=== PATIENT | male | born 1945 | race Caucasian/White ===

== ENCOUNTER 2018-02-05 13:28 | Inpatient (IN) | payer MEDICARE ==
[2018-02-05 14:43] VITALS: BP 118/69
[2018-02-05] MEDS ORDERED: Magnesium Hydroxide (MOM) 30 mL UDC PO PRN (17:07)
[2018-02-05] MEDS ORDERED: Maalox 30 mL Cup PO PRN (17:07)
[2018-02-06] MEDS: Levothyroxine 0.1 Mg Tab PO SCH ×2 (07:19→07:33)
[2018-02-06 07:58] LABS: CHOLESTEROL 147 mg/dL (<200); HDL -HIGH DENSITY LIPOPROTEIN 43 mg/dL (23-92); TRIGLYCERIDES 107 mg/dL (<150)
[2018-02-06] MEDS: INSULIN ASPART SLIDING SCALE 100 UNITS/ML UNIT SUBQ SCH ×4 (07:59→20:38)
[2018-02-06] MEDS: Ferrous Sulfate 325 MG TAB PO SCH ×2 (08:52→17:36)
[2018-02-06] MEDS: Multivitamin Tab PO SCH (08:53)
[2018-02-06] MEDS: Pantoprazole 40 mg EC Tab PO SCH (08:53)
[2018-02-06] MEDS ORDERED: Enoxaparin 40 mg/0.4 mL 0.4mL Syr SUBQ SCH (09:00)
--- NOTE | 2018-02-06 11:36 | History & Physical ---
ADMIT DATE: 02/06/2018 IDENTIFICATION: A 72-year-old male. REQUESTING PHYSICIAN: Dr. Mary. PRESENTING COMPLAINT: "I don't know why I am here." HISTORY OF PRESENT ILLNESS: A 52-year-old male transferred from acute care facility to [place] transferred from [facility] to [facility] for further psychiatric care. PAST MEDICAL HISTORY: Remarkable for: 1. Diabetes. 2. BPH. 3. Hypertension. 4. DJD. 5. Hypothyroidism. 6. Psychotic disorder. 7. Dementia. 8. History of anemia. MEDICATIONS: At the time of transfer, Tylenol, Maalox, Abilify, Lipitor, atropine eyedrops, Coreg, Lovenox, ferrous sulfate, sliding scale insulin, Synthroid, Zestril, lorazepam, milk of magnesia, Glucophage, multivitamin, Protonix, Risperdal, Ambien. ALLERGIES: THE PATIENT IS ALLERGIC TO PAXIL. SOCIAL HISTORY: The patient lives in [facility] with his . The patient has no history of smoking cigarette, alcohol, or drug use. He used to work as a air condition conduit installer. FAMILY MEDICAL HISTORY: He was adopted, so there is no history available. REVIEW OF SYSTEMS: The patient currently denies any headache, blurred vision, double vision, dysphagia, odynophagia, runny nose, stuffy nose, fever, chills, cough, chest pain, shortness of breath, palpitation, dizziness, nausea, vomiting, diarrhea, dysuria, hematuria, hematochezia, or melena. No history of any seizure or syncopal episode. PHYSICAL EXAMINATION: GENERAL: Alert, awake, oriented, lying in the bed without any acute distress. VITAL SIGNS: Temperature 98, pulse is 74, respiratory rate is 18, blood pressure 134/80. HEENT: Normocephalic, atraumatic. Extraocular muscles are intact. Legally blindness on the right eye noted. Tongue was pink and coated. Poor dentition noted. No oral lesion, no exudate. No sinus tenderness. External auditory canal and tympanic membranes are well visualized. NECK: Supple. No JVD. No hepatojugular reflex. No lymphadenopathy, thyromegaly, or carotid bruit. HEART: Both heart sounds are regular. No S3, no S4, no murmur. CHEST AND LUNGS: Equal in expansion, no expiratory wheezing. ABDOMEN: Soft. No guarding. No rigidity. Liver and spleen palpable. No palpable mass. EXTREMITIES: No edema, no cyanosis or clubbing. Peripheral pulses are +2. No calf tenderness noted. NEUROLOGIC: Alert, awake, oriented, 2-12 cranial nerves are intact. Power in upper or lower extremities are 5+. Sensation to touch intact. Babinskis in both toes are going down. No cerebral sign. AVAILABLE DIAGNOSTIC DATA: [facility] has been reviewed. CLINICAL IMPRESSION: 1. Diabetes. 2. Hypertension. 3. Hypothyroidism. 4. Degenerative joint disease. 5. Hyperlipidemia. 6. Psychotic disorder. 7. 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 8. History of prior transurethral resection of prostate and benign prostatic hypertrophy. 9. Decline in self-care, mobility. PLAN: In the view of ambulatory status, discontinue Lovenox for now. Resume medications for diabetes, hypertension, hyperlipidemia, hypothyroidism, and provided general nursing care. Medication lists will be reconciled appropriately. Psychotic evaluation and management deferred to psychiatrist. The patient is medically stable to participate in the activity followed by the [facility]. The patient has been advised to see his primary care physician upon discharge for followup. [facility]# [id number]
--- NOTE | 2018-02-06 12:15 | Psychiatric Evaluation ---
DATE OF SERVICE: 02/05/2018 IDENTIFYING INFORMATION: The patient is a 72-year-old male. CHIEF COMPLAINT: "I don't know." HISTORY OF PRESENT ILLNESS: The patient was admitted on a hold for danger to self. The patient was dropped off by spouse for possible placement; however, at this time in hospital, the patient exhibited cutting behavior. He voiced intent to end his life. The patient apparently was recently discharged home and returned to the hospital the same day attempted to end his life by hanging with cords in the room and cutting himself with the glass from glasses. The patient was seen by a psychiatrist. Apparently on 02/04/2018, he recommended treatment due to manic symptoms and for definitive treatment of psychotic depression. The patient was a poor historian actually, he is not sure how long he has been actually though his brought him here he said he has not seen his in a long time. The patient denies that he agreed that he tried to cut himself for attention, but he denies that he was trying to hang himself. He reports his sleep well. Reports poor appetite. He knows this is 2017. He knows he is at [facility]. He is not sure why he is here. Has no clue about what he did. PAST PSYCHIATRIC HISTORY: Depression. The patient, however, denies that he has seen a psychiatrist before. Admits that he used to drink in the past, but not recently. He believes this is his first hospitalization here. Obviously, he has problem with his memory. MEDICATIONS: The patient is already on Abilify 15 mg daily and Risperdal 1 mg daily and 2 mg at bedtime. The patient was denying any prior suicide attempt, but obviously he is a poor historian. He reports sleep well, does not eat very well. MEDICAL HISTORY: THE PATIENT IS ALLERGIC TO PAXIL. He has hyperlipidemia. He has ophthalmic eye drops, atropine. He is on Coreg for blood pressure, Lovenox, iron for anemia. He is diabetic and on insulin. He has hypothyroidism, on levothyroxine and lisinopril for high blood pressure and metformin for diabetes 850 mg, and pantoprazole for GERD. FAMILY AND SOCIAL HISTORY: The patient reported that he is . He is not sure how long. He reports he has not seen his for a long time, though his was the one who brought him here. He apparently is supposed to be placed in a [facility]. He has 4 children, but he does not know where they are. He reports he was adopted, so has no idea about family history. 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 He has one semester [employer]. MENTAL STATUS EXAMINATION: The patient is appropriately dressed, not well groomed. He looked disheveled, internally preoccupied. Unable to participate in meaningful conversation or make safe plan for self-care. He does not know why he is here. He was able to tell me his age and date of . He is not sure of the current date. He knows this is 2017. He knew he was in [facility], but he is not sure why he is here. He denies any auditory or visual hallucination. His long terms were age, date of . Recent memory is poor, cannot remember events led to him coming here, what he ate for breakfast. Immediate memory is poor, cannot concentrate enough to give me information. He has some ____. His insight about his illness is poor ____ problem. Judgment is poor with his behavior, trying to harm himself. IMPRESSION: AXIS I: Major depression, recurrent with psychosis. MEDICAL DIAGNOSIS: Deferred to the medical doctor. ASSET: Accepting treatment. Negative for coping skills. INITIAL TREATMENT PLAN: The patient will be started on antidepressant. We will do group therapy, milieu therapy, and individual therapy. ESTIMATED LENGTH OF STAY: 3-7 days. DISCHARGE CRITERIA: Decrease in depression, no longer suicidal after discharge, outpatient treatment. We may also have to give him medications for memory. I am not sure if he is psychotic or he has memory problems to start with. JOB# [id number]
[2018-02-07] MEDS: Levothyroxine 0.1 Mg Tab PO SCH (07:01)
[2018-02-07] MEDS: INSULIN ASPART SLIDING SCALE 100 UNITS/ML UNIT SUBQ SCH ×4 (07:01→21:15)
[2018-02-07 07:03] LABS: URINE SOURCE FOLEY PORT
[2018-02-07 07:15] LABS: URINE CLARITY CLOUDY (CLEAR); URINE COLOR YELLOW; URINE MICROSCOPIC INDICATED? YES
[2018-02-07 07:16] LABS: URINE BILIRUBIN NEGATIVE (NEGATIVE); URINE BLOOD SMALL (NEGATIVE); URINE GLUCOSE (UA) NEGATIVE (NEGATIVE); URINE KETONE TRACE mg/dL (NEGATIVE)
[2018-02-07 07:17] LABS: URINE LEUKOCYTE ESTERASE LARGE (NEGATIVE); URINE NITRATE POSITIVE (NEGATIVE); URINE PROTEIN 30 mg/dL (NEGATIVE); URINE UROBILINOGEN 0.2 E.U./dL (0.2 - 1.0)
[2018-02-07 07:20] LABS: URINE BACTERIA 1+ /hpf (NONE SEEN); URINE EPITHELIAL CELLS OCCASIONAL /lpf (FEW)
[2018-02-07] MEDS: Multivitamin Tab PO SCH (08:51)
[2018-02-07] MEDS: Pantoprazole 40 mg EC Tab PO SCH (08:52)
[2018-02-07] MEDS: Ferrous Sulfate 325 MG TAB PO SCH ×2 (08:52→16:16)
--- NOTE | 2018-02-07 17:26 | Progress Notes ---
DATE: 02/07/2018 SUBJECTIVE: The patient was seen and evaluated. The patient's chart reviewed. Nursing staff overnight report that the patient continues to report feeling sad and suicidal, had refused medications earlier today. Today on [id number] evaluation, the patient presents withdrawn, disengaged, very irritable in the conversation, and denying everything and refusing everything to why he has been hospitalized, and does not give much of information besides " I am not going to be seen by a psychiatrist." MENTAL STATUS EXAMINATION: Disengaged, withdrawn, irritable, agitated, refusing to be interviewed by Psychiatry. ASSESSMENT AND PLAN: The patient is a 72-year-old male, who was initially brought in here by his spouse who dropped him off. He had been exhibiting some cutting behavior and voiced intent to end his life, and apparently was discharged from the hospital, and he attempted to end his life by hanging with curtain in his room and cutting himself with . CURRENT MEDICATIONS: The patient is on acetaminophen, Abilify 15 mg, Coreg, Cipro, ferrous sulfate, levothyroxine, lisinopril, Ativan as needed, mirtazapine at 15 mg a day, metformin, and risperidone 1 mg p.o. q.a.m. and also 2 mg at nighttime. Today, the patient has still very guarded behavior, serious suicide attempts, and unclear of the patient's history. Further collateral and baseline information is needed. Unclear why the patient has 2 different antipsychotics. Therefore, at this point, we will continue monitoring and evaluating for any side effects as he has not experienced anything and continue with primary psychiatrist's treatment plan and goal. [facility]# [id number]
--- NOTE | 2018-02-08 00:09 | Progress Notes ---
DATE: 02/07/2018 IDENTIFICATION: A 72-year-old male. The patient seen and examined. The patient is lying in the bed. The patient has no new complaint. PHYSICAL EXAMINATION: VITAL SIGNS: Temperature 98.7, pulse is 100, respiratory rate 18, blood pressure 100/50. HEENT: No facial asymmetry, legally blindness in the right eye noted. Tongue was pink and coated. NECK: Supple, no JVD. HEART: Regular. CHEST AND LUNGS: Equal in expansion, no expiratory wheezing. ABDOMEN: Soft, no guarding or rigidity. Bowel sounds present. No palpable mass. EXTREMITIES: No edema. LABORATORY DATA: Glucoscan is reviewed. Cholesterol panels are acceptable range. Urinalysis remarkable for small amount of blood, nitrite positive, large leukocyte esterase, 10-25 WBC, +1 bacteria noted. CLINICAL IMPRESSION: 1. Urinary tract infection. 2. Diabetes mellitus. 3. Benign prostatic hypertrophy. 4. Hypertension. 5. Hypothyroidism. 6. Degenerative joint disease. 7. Psychotic disorder. 8. Decline in self-care and mobility. PLAN: 1. Start the patient on p.o. ciprofloxacin for urinary tract infection. 2. Monitor blood sugar and blood pressure. 3. Antihypertensive medicine. 4. Synthroid. 5. Statin. 6. Psych medication. 7. Psych followup. 8. General nursing care. 9. Follow lab. 10. We will continue to follow this patient during the stay in the hospital. JOB# [id number]
[2018-02-08] MEDS: Levothyroxine 0.1 Mg Tab PO SCH (06:36)
[2018-02-08] MEDS: INSULIN ASPART SLIDING SCALE 100 UNITS/ML UNIT SUBQ SCH ×4 (06:37→20:50)
[2018-02-08] MEDS: Ferrous Sulfate 325 MG TAB PO SCH ×3 (08:51→16:58)
[2018-02-08] MEDS: Pantoprazole 40 mg EC Tab PO SCH ×2 (08:51→09:07)
[2018-02-08] MEDS: Multivitamin Tab PO SCH ×2 (08:51→09:07)
--- NOTE | 2018-02-08 19:27 | Progress Notes ---
DATE: 02/08/2018 SUBJECTIVE: Today on [id number] evaluation, the patient continues to be distraught, overwhelmed, refusing to answer questions, especially associated with her recent acute hospitalization. MENTAL STATUS EXAMINATION: Distraught and disengaged. ASSESSMENT AND PLAN: Failed ____ post severe suicide attempt, unable to formulate a safe plan. We will continue current medical treatment plan and goals with the patient ongoing severe SI, unable to formulate a safe plan. [facility]# [id number]
--- NOTE | 2018-02-08 22:08 | Progress Notes ---
DATE: 02/08/2018 DATE OF EVALUATION: 02/08/2018 SUBJECTIVE: The patient seen and examined. The patient is lying in the bed. No new event. OBJECTIVE: VITAL SIGNS: Temperature 98.4, pulse 100, respiratory rate is 20, blood pressure 142/79. HEENT: No facial asymmetry, legally blindness in the right eye noted. NECK: Supple, no JVD. HEART: Regular. CHEST AND LUNGS: Equal in expansion, no expiratory wheezing. ABDOMEN: Soft. EXTREMITIES: No edema. LABORATORY DATA: MRSA nares came out positive. Stool studies are negative for any Gram-negative organism. Urine culture preliminary is positive for Gram-negative rods, currently on Cipro. IMPRESSION: 1. Diabetes mellitus. 2. Complicated urinary tract infection. 3. Benign prostatic hypertrophy. 4. Psychotic disorder. 5. Hypertension. 6. Hyperlipidemia. 7. Degenerative joint disease. 8. Decline in self-care and mobility. PLAN: 1. Continue Cipro. 2. Monitor blood sugar. 3. Diabetes management. 4. Antihypertensive medicine. 5. Synthroid. 6. Psych followup and psych medication. 7. General nursing care. 8. Care plan reviewed. JOB# [id number]
[2018-02-09] MEDS: Levothyroxine 0.1 Mg Tab PO SCH (06:38)
[2018-02-09] MEDS: INSULIN ASPART SLIDING SCALE 100 UNITS/ML UNIT SUBQ SCH ×4 (06:41→20:39)
[2018-02-09] MEDS: Multivitamin Tab PO SCH (08:40)
[2018-02-09] MEDS: Pantoprazole 40 mg EC Tab PO SCH (08:40)
[2018-02-09] MEDS: Ferrous Sulfate 325 MG TAB PO SCH ×3 (08:40→16:48)
[2018-02-09] MEDS ORDERED: Probiotic Screen MC PRN (12:26)
[2018-02-09] MEDS: Lactobacillus Rhamnosus GG 15 Billion CFU CAP.SPRINK PO SCH (14:09)
--- NOTE | 2018-02-09 22:23 | Progress Notes ---
DATE: 02/09/2018 SUBJECTIVE: Case was discussed with staff of the patient, reviewed records and staff report that patient refused medication in the morning, but take it at night. The patient continues to be confused, unable to participate in meaningful conversation or make safe plan for self-care. Continues to be unpredictable and impulsive, high risk for suicide ____ suicide attempt. The patient is unable to express himself very well. He has some ____ hard to express himself. I will be increasing Risperdal. I tried to give him all his medication possibly at bedtime. So Risperdal will be increased to 3 mg at bedtime and so far no side effects, no sedation, no nausea, no extrapyramidal symptoms. We will continue outpatient group therapy, milieu therapy, and adjust medication as needed. JOB# [id number]
[2018-02-10] MEDS: Levothyroxine 0.1 Mg Tab PO SCH (06:33)
[2018-02-10] MEDS: INSULIN ASPART SLIDING SCALE 100 UNITS/ML UNIT SUBQ SCH ×4 (06:34→21:45)
[2018-02-10] MEDS: Ferrous Sulfate 325 MG TAB PO SCH ×2 (08:46→16:59)
[2018-02-10] MEDS: Lactobacillus Rhamnosus GG 15 Billion CFU CAP.SPRINK PO SCH (08:46)
[2018-02-10] MEDS: Pantoprazole 40 mg EC Tab PO SCH (08:46)
[2018-02-10] MEDS: Multivitamin Tab PO SCH (08:46)
--- NOTE | 2018-02-10 10:05 | Progress Notes ---
DATE: 02/10/2018 SUBJECTIVE: The patient seen and examined. The patient is lying in the bed. No new event. Urine culture did grow Klebsiella pneumoniae ESBL with the Staphylococcus aureus MRSA screening came out positive. The patient is currently on ciprofloxacin when Klebsiella is sensitive to it. OBJECTIVE: On today's exam, VITAL SIGNS: Temperature 98, pulse is 100, respiratory rate 18, blood pressure 120/74. HEENT: No facial asymmetry, legally blindness noted on the left eye. Tongue more pink and coated. NECK: Supple. HEART: Regular. LUNGS: Clear. ABDOMEN: Soft. EXTREMITIES: No edema. CLINICAL IMPRESSION: 1. Klebsiella pneumoniae extended-spectrum beta-lactamases urinary tract infection, currently on p.o. Cipro. 2. Methicillin-resistant Staphylococcus aureus nares positive. 3. Diabetes. 4. Benign prostatic hypertrophy. 5. Hypertension. 6. Degenerative joint disease. 7. Hypothyroidism. PLAN: 1. P.o. Cipro. 2. Bactroban. 3. Monitor blood sugar. 4. Antihypertensive medicine. 5. Synthroid. 6. General nursing care. 7. We will continue to follow this patient during the stay in the hospital. JOB# [id number]
--- NOTE | 2018-02-10 17:21 | Progress Notes ---
DATE: 02/10/2018 Case was discussed with staff of the patient. The patient continues to be paranoid, suspicious, internally preoccupied, confused, unable to participate in meaningful conversation or make safe plan for self-care. Continues to have poor insight. Looking disheveled, disorganized. He is compliant with the medication with no side effects, no sedation, no nausea, no extrapyramidal symptoms. I changed the medication to only bedtime because he is refusing the morning. Medication and we will continue the patient in group therapy, milieu therapy, adjust medication as needed. JOB# [id number]
[2018-02-11] MEDS: Levothyroxine 0.1 Mg Tab PO SCH (06:33)
[2018-02-11] MEDS: INSULIN ASPART SLIDING SCALE 100 UNITS/ML UNIT SUBQ SCH ×4 (06:34→21:30)
[2018-02-11] MEDS: Lactobacillus Rhamnosus GG 15 Billion CFU CAP.SPRINK PO SCH (08:50)
[2018-02-11] MEDS: Ferrous Sulfate 325 MG TAB PO SCH ×2 (08:50→16:25)
[2018-02-11] MEDS: Pantoprazole 40 mg EC Tab PO SCH (08:52)
[2018-02-11] MEDS: Multivitamin Tab PO SCH (08:52)
--- NOTE | 2018-02-11 14:24 | Operative Report ---
DATE OF SURGERY: 02/11/2018 SUBJECTIVE: Case was discussed with staff of the patient, reviewed records. The patient continues to be confused, continues to be unpredictable, impulsive, needing redirection. Continues to have poor insight. Unable to participate in meaningful conversation or make safe plan for self-care. He is compliant with the medication with no side effects, no sedation, no nausea, and no extrapyramidal symptoms. We will continue the patient in group therapy, milieu therapy, and adjust medications as needed. JOB# [id number]
[2018-02-12] MEDS: Levothyroxine 0.1 Mg Tab PO SCH (06:42)
[2018-02-12] MEDS: INSULIN ASPART SLIDING SCALE 100 UNITS/ML UNIT SUBQ SCH ×4 (06:58→20:55)
[2018-02-12] MEDS: Ferrous Sulfate 325 MG TAB PO SCH ×2 (08:36→17:29)
[2018-02-12] MEDS: Multivitamin Tab PO SCH (08:36)
[2018-02-12] MEDS: Lactobacillus Rhamnosus GG 15 Billion CFU CAP.SPRINK PO SCH (08:36)
[2018-02-12] MEDS: Pantoprazole 40 mg EC Tab PO SCH (08:36)
--- NOTE | 2018-02-12 15:35 | Progress Notes ---
DATE: 02/12/2018 THE PATIENT'S ID: A 72-year-old male. SUBJECTIVE: The patient is seen and examined. No new event. Glucoscan reviewed. PHYSICAL EXAMINATION: VITAL SIGNS: Temperature 98.1, pulse 100, respiratory rate is 18, blood pressure 92/58. HEENT: No facial asymmetry, legally blindness from the right eye noted. NECK: Supple, no JVD. HEART: Regular. CHEST AND LUNGS: Equal in expansion, no expiratory wheezing. ABDOMEN: Soft, no guarding or rigidity. Bowel sounds present. No palpable mass. EXTREMITIES: No edema. CLINICAL IMPRESSION: 1. Klebsiella pneumonia complicated urinary tract infection. 2. Benign prostatic hypertrophy. 3. Hypertension. 4. Hypothyroidism. 5. Degenerative joint disease. 6. Diabetes. 7. Psychotic disorder. PLAN: 1. p.o. Cipro. 2. Bactroban. 3. Monitor blood sugar and blood pressure. 4. Avoid bladder outlet obstruction. 5. Continue BPH medication. 6. Low sodium diet. 7. Synthroid. 8. General nursing care. 9. Care plan reviewed. JOB# [id number]
--- NOTE | 2018-02-12 16:51 | Progress Notes ---
DATE: 02/12/2018 Case was discussed with staff of the patient, reviewed records. The patient continues to be confused, continues to have poor insight. Continues to unable to make safe plan for self-care. Looking disheveled, disorganized, internally preoccupied. Continues to need redirection. No side effects of the medication, no sedation, no nausea, no extrapyramidal symptoms and sleeping better, eating better. He is also diabetic and on medication for diabetes with high blood sugar with the last one was this morning at 142, yesterday it was 169 and we will continue the patient in group therapy, milieu therapy, and adjust the medication as needed. JOB# [id number]
[2018-02-13] MEDS: Levothyroxine 0.1 Mg Tab PO SCH (06:44)
[2018-02-13] MEDS: INSULIN ASPART SLIDING SCALE 100 UNITS/ML UNIT SUBQ SCH ×4 (06:46→20:38)
[2018-02-13] MEDS: Lactobacillus Rhamnosus GG 15 Billion CFU CAP.SPRINK PO SCH (08:31)
[2018-02-13] MEDS: Pantoprazole 40 mg EC Tab PO SCH (08:31)
[2018-02-13] MEDS: Multivitamin Tab PO SCH (08:31)
[2018-02-13] MEDS: Ferrous Sulfate 325 MG TAB PO SCH ×2 (08:32→17:11)
--- NOTE | 2018-02-13 21:12 | Progress Notes ---
DATE: 02/13/2018 Case was discussed with staff of the patient, reviewed records. The patient continues to be confused. He was able to tell me this is Friday; however, unable to tell me the exact date, place, month, what year. Continues to be internally preoccupied. Continues to be unable to make safe plan for self-care. However, he is making progress in that he is able to carry on a conversation though he is still very confused. I am not sure of psychosis or he is demented. Because of his psychosis, it is hard to test his memory and make sure that this is dementia. He is sleeping better, eating better. No side effects with the medication, no sedation, no nausea and no extrapyramidal symptoms. I will continue with outpatient group therapy, milieu therapy, and adjust medications as needed. JOB# [id number]
[2018-02-14] MEDS: Levothyroxine 0.1 Mg Tab PO SCH (06:30)
[2018-02-14] MEDS: INSULIN ASPART SLIDING SCALE 100 UNITS/ML UNIT SUBQ SCH ×2 (06:31→12:07)
[2018-02-14] MEDS: Multivitamin Tab PO SCH (08:57)
[2018-02-14] MEDS: Lactobacillus Rhamnosus GG 15 Billion CFU CAP.SPRINK PO SCH (08:57)
[2018-02-14] MEDS: Ferrous Sulfate 325 MG TAB PO SCH (08:57)
[2018-02-14] MEDS: Pantoprazole 40 mg EC Tab PO SCH (08:57)
[2018-02-14 12:40] LABS: EOSINOPHILE ABSOLUTE 0.1 Th/cmm (0.1-0.4); HEMATOCRIT 30.4 % (41.0-60); LYMPHOCYTE ABSOLUTE 0.6 Th/cmm (1.5-3.0); MEAN CELL VOLUME 78.5 fl (80-99); MEAN CORPUSCULAR HEMOGLOBIN 25.7 pg (27.0-31.0); MEAN CORPUSCULAR HGB CONC 32.7 pg (28.0-36.0); MEAN PLATELET VOLUME 8.2 fl; MONOCYTE ABSOLUTE 0.4 Th/cmm (0.3-1.0); NEUTROPHILE ABSOLUTE 9.7 Th/cmm (1.8-8.0); PLATELET COUNT 287 Th/cmm (150-400); RED BLOOD COUNT 3.87 Mil/cmm (3.80-5.80); RED CELL DISTRIBUTION WIDTH 19.4 % (11.5-20.0); WHITE BLOOD COUNT 10.8 Th/cmm (4.8-10.8)
[2018-02-14 12:55] LABS: ALB/GLOB RATIO 1.3 (1.0-1.8); ALBUMIN 3.4 gm/dL (4.2-5.5); ALKALINE PHOSPHATASE 56 U/L (34-104); ANION GAP 43.5 (7.0-16.0); BILIRUBIN,TOTAL 0.3 mg/dL (0.3-1.0); CALCIUM SERUM 9.2 mg/dL (8.6-10.3); CHLORIDE 92 mEq/L (98-107); GLUCOSE 181 mg/dL (70-105); SGOT 19 U/L (13-39); SGPT/ALT 19 U/L (7-52); SODIUM SERUM 134 mEq/L (136-145)
[2018-02-14 13:09] LABS: BAND NEUTROPHILE 1 % (0-10); LYMPHOCYTE 11 % (20-50); MONOCYTE 1 % (2-10); NEUTROPHILS 87 % (40-80)
[2018-02-14 13:10] LABS: ANISOCYTOSIS 1+; PLATELET ESTIMATE ADEQUATE (NORMAL); POIKILOCYTOSIS 2+
[2018-02-14 13:13] LABS: ACANTHROCYTES 1+
[2018-02-14 13:14] LABS: BURR CELLS 2+
[2018-02-14 13:20] LABS: BUN - UREA NITROGEN 105 mg/dL (7-25); POTASSIUM SERUM 5.5 mEq/L (3.5-5.1)
[2018-02-14] MEDS ORDERED: Albuterol/Ipratropium Neb 3 ML AERS HHN PRN (14:13)
[2018-02-14] MEDS ORDERED: D5-0.9%NS 1,000 ML IV SCH (14:15)
[2018-02-14] MEDS ORDERED: Sodium Chloride 0.9% 1,000 ML IV ONE (14:18)
[2018-02-14] MEDS ORDERED: Lactulose 10 Gm/15 mL 30mL UDC PO SCH (14:30)
[2018-02-14 14:45] LABS: ALBUMIN 3.4 gm/dL (4.2-5.5); ANION GAP 45.2 (7.0-16.0); CALCIUM SERUM 9.2 mg/dL (8.6-10.3); CHLORIDE 92 mEq/L (98-107); GLUCOSE 186 mg/dL (70-105); PHOSPHOROUS 11.9 mg/dL (2.5-5.0); POTASSIUM SERUM 5.6 mEq/L (3.5-5.1); SODIUM SERUM 135 mEq/L (136-145)
[2018-02-14 15:04] LABS: BUN - UREA NITROGEN 105 mg/dL (7-25); CARBON DIOXIDE 3.4 mEq/L (21.0-31.0)
[2018-02-14 15:05] LABS: CREATININE - SERUM 10.1 mg/dL (0.7-1.3)
[2018-02-14 16:21] LABS: PROTHROMBIN TIME (TEST) 14.4 SECONDS (9.5-11.5)
[2018-02-14] MEDS ORDERED: INSULIN ASPART SLIDING SCALE 100 UNITS/ML UNIT SUBQ SCH (16:30)
[2018-02-14 17:26] LABS: DDIMER QUANT > 5000 ng/mL (100-400)
[2018-02-14] MEDS ORDERED: Albuterol/Ipratropium Neb 3 ML AERS HHN SCH (19:00)
--- NOTE | 2018-02-15 09:42 | Diagnostic Imaging Report ---
KUB abdominal film HISTORY: Vomiting There is a mildly distended air-filled stomach. Significance should be correlated clinically. The remainder of the bowel gas pattern is nonspecific. No free intraperitoneal air. Degenerative changes noted within the spine. IMPRESSION: 1. Mildly distended air-filled stomach with an otherwise nonspecific bowel gas pattern.
--- NOTE | 2018-02-20 12:39 | Discharge Summary ---
DATE OF DISCHARGE: 02/14/2018 IDENTIFYING INFORMATION: The patient is a 72-year-old male. CHIEF COMPLAINT: "I don't know." HISTORY OF PRESENT ILLNESS: The patient was admitted on a hold for danger to self. The patient was dropped off by spouse for possible placement; however, at this time the patient says that he was cutting. He voiced intent to end his life. He apparently was recently discharged home and returned to the hospital the same day attempted to end his life by hanging with cords in the room and cutting himself with the glass from glasses. The patient was seen by a psychiatrist on 02/04/2018, recommended treatment due to manic symptoms and for definitive treatment of psychotic depression. The patient was a poor historian. He was not sure why he was here. He reported that his brought him here. He said he has not seen his in a long time. He denies that he agreed that he tried to cut himself. He reports was for attention. He denies that he was trying to hang himself. He reports his sleep well. Poor appetite. He knows that this is 2017. He knows he was at [place]. However, he is not sure why he is here. PAST PSYCHIATRIC HISTORY: Depression. Denies that he has seen a psychiatrist before. He used to drink in the past, but not recently. He believes this is his first hospitalization. Obviously, he has problem with his memory. MEDICATIONS: The patient already on Abilify 15 mg daily and Risperdal 1 mg daily and 2 mg at bedtime. The patient was denying any prior suicide attempt. ALLERGIES: PAXIL. COURSE IN THE HOSPITAL: The patient was continued with medication. The patient was continued with atorvastatin, carvedilol, Cipro, iron, insulin, levothyroxine, and magnesium, Remeron 15 mg at bedtime to help him eat, pantoprazole, and multivitamins. I did increase his Risperdal to 3 mg at bedtime. The patient did not acting anyway dangerous while here, however, he had to be transported to ICU and apparently he got intubated; however, no consult was asked from a psychiatrist since he went there. FINAL DIAGNOSES: AXIS I: Major depression, recurrent with psychosis. MEDICAL DIAGNOSES: As per medical doctor. FOLLOWUP: The patient needs follow up with the psychiatrist upon discharge. I am not sure of the treating doctor has ordered that. JOB# [id number]
== END 2018-02-14 14:35 | disposition short-term general hospital (02) | DRG 885 ==
LOC: GERO 13:28
PROVIDERS: ADMIT Psychiatry & Neurology Psychiatry; ATTEND Psychiatry & Neurology Psychiatry
DX: F33.3 Major depressive disorder, recurrent, severe with psychotic symptoms (principal); N39.0 Urinary tract infection, site not specified; E11.9 Type 2 diabetes mellitus without complications; N40.0 Benign prostatic hyperplasia without lower urinary tract symptoms; I10 Essential (primary) hypertension; M19.90 Unspecified osteoarthritis, unspecified site; E03.9 Hypothyroidism, unspecified; F03.90 Unspecified dementia, unspecified severity, without behavioral disturbance, psychotic disturbance, mood disturbance, and anxiety; E78.5 Hyperlipidemia, unspecified; F29 Unspecified psychosis not due to a substance or known physiological condition; H54.8 Legal blindness, as defined in USA; B96.1 Klebsiella pneumoniae [K. pneumoniae] as the cause of diseases classified elsewhere; B95.62 Methicillin resistant Staphylococcus aureus infection as the cause of diseases classified elsewhere; K21.9 Gastro-esophageal reflux disease without esophagitis; D50.9 Iron deficiency anemia, unspecified; Z16.12 Extended spectrum beta lactamase (ESBL) resistance; Z79.4 Long term (current) use of insulin; Z88.8 Allergy status to other drugs, medicaments and biological substances
CPT/HCPCS: 36415-UA; 74000-TC; 80053-TC; 80061-TC; 80069-TC; 81001-TC; 82140-TC; 82948-90; 83036-90; 83615-TC; 83735-TC; 84484-TC; 85007-TC; 85025-TC; 85049-TC; 85379-TC; 85384-TC; 85610-TC; 85730-TC; 87046-90; 87086-90; 94640; J1650; J1815; Q0162; Z7610

== ENCOUNTER 2018-02-14 14:49 | Inpatient (IN) | payer MEDICARE ==
[2018-02-14] MEDS ORDERED: Sodium Bicarbonate 8.4% 50mEq PFS IVP ONE ×5 (15:18→21:33)
[2018-02-14] MEDS ORDERED: INSULIN HUMAN REGULAR 100 UNITS/ML UNIT IV ONE ×2 (15:18→15:50)
[2018-02-14] MEDS ORDERED: Albuterol/Ipratropium Neb 3 ML AERS HHN PRN (15:37)
[2018-02-14 15:48] VITALS: BP 70/32
[2018-02-14] MEDS ORDERED: Diatrizoate Meglumine/Diatri 30 mL Sol ONE (15:54)
[2018-02-14] MEDS ORDERED: D5-0.9%NS 1,000 ML IV SCH (16:00)
[2018-02-14] MEDS ORDERED: SODIUM BICARBONATE IV SCH ×2 (16:00→19:00)
[2018-02-14] MEDS ORDERED: D5 IV SCH ×2 (16:00→19:00)
[2018-02-14] MEDS ORDERED: NS IV SCH ×2 (16:00→19:00)
[2018-02-14] MEDS ORDERED: Piperacillin/Tazobact 2.25 gm in 0.9% NS 50 ML IV SCH (16:00)
[2018-02-14 16:08] LABS: HEMATOCRIT 26.7 % (41.0-60)
[2018-02-14 16:22] LABS: % EOSINOPHILS 0.4 % (0.0-5.0); % LYMPHOCYTES 22.9 % (20.0-50.0); % MONOCYTES 1.2 % (2.0-10.0); % NEUTROPHILS 75.5 % (40.0-80.0); HEMOGLOBIN 8.5 gm/dL (12-16); MEAN CELL VOLUME 80.7 fl (80-99); MEAN CORPUSCULAR HEMOGLOBIN 25.6 pg (27.0-31.0); MEAN CORPUSCULAR HGB CONC 31.7 pg (28.0-36.0); MEAN PLATELET VOLUME 8.9 fl; MONOCYTE ABSOLUTE 0.1 Th/cmm (0.3-1.0); NEUTROPHILE ABSOLUTE 6.5 Th/cmm (1.8-8.0); PLATELET COUNT 301 Th/cmm (150-400); RED BLOOD COUNT 3.31 Mil/cmm (3.80-5.80); RED CELL DISTRIBUTION WIDTH 19.1 % (11.5-20.0); WHITE BLOOD COUNT 8.6 Th/cmm (4.8-10.8)
[2018-02-14 16:36] LABS: ALB/GLOB RATIO 1.2 (1.0-1.8); ALBUMIN 2.6 gm/dL (4.2-5.5); ALKALINE PHOSPHATASE 48 U/L (34-104); ANION GAP 45.2 (7.0-16.0); BILIRUBIN,TOTAL 0.2 mg/dL (0.3-1.0); CALCIUM SERUM 8.7 mg/dL (8.6-10.3); CHLORIDE 95 mEq/L (98-107); GLUCOSE 185 mg/dL (70-105); MAGNESIUM 2.5 mg/dL (1.9-2.7); POTASSIUM SERUM 5.6 mEq/L (3.5-5.1); SGOT 127 U/L (13-39); SGPT/ALT 93 U/L (7-52); SODIUM SERUM 140 mEq/L (136-145); TOTAL PROTEIN,SERUM 4.7 gm/dL (6.0-8.3)
[2018-02-14 16:41] LABS: CARBON DIOXIDE 5.4 mEq/L (21.0-31.0)
[2018-02-14 16:42] LABS: BUN - UREA NITROGEN 107 mg/dL (7-25); CREATININE - SERUM 9.7 mg/dL (0.7-1.3)
[2018-02-14] MEDS ORDERED: Phenylephrine HCl 50 MG in Sodium Chloride 0.9% 250 ML IV SCH (16:45)
--- NOTE | 2018-02-14 16:55 | History & Physical ---
ADMIT DATE: 02/14/2018 PATIENT'S IDENTIFICATION: A 72-year-old male. CHIEF COMPLAINT: Altered mental status. HISTORY OF PRESENT ILLNESS: A 72-year-old male who is admitted under care of Dr. Mary for his psychotic illness where I have been following this patient for medical management. The patient has not been seen by me for 2 days and noted by nursing staff that the patient was not eating and the patient was very lethargic and his blood pressure was very low. I was called by nursing staff about this patient's change in the conditions. I did advise to have a stat CBC and labs to be done, which did reveal the patient's BUN and creatinine is 105 and 10 with bicarbonate of 4, potassium of 5, ammonia of 226 with hemoglobin 10.4 with normal white blood cell count. The patient has been now transferred to Intensive Care Unit. The patient does not provide any meaningful history at this time. PAST MEDICAL HISTORY: Remarkable for: 1. Diabetes. 2. BPH. 3. Hypertension. 4. Hypothyroidism. 5. Psychotic disorder. 6. Dementia. 7. DJD. MEDICATIONS: Currently, the patient is receiving Tylenol, Maalox, Abilify, Lipitor, atropine eyedrops, Coreg, Cipro, ferrous sulfate, Novolin sliding scale, probiotic, levothyroxine, lisinopril, Ativan, milk of magnesia, Remeron, Bactroban, Zofran, Protonix, and Risperdal. ALLERGIES: The patient is allergic to PAROXETINE. SOCIAL HISTORY: The patient lives in ___. The patient does not have smoking cigarette, alcohol, or drug use. FAMILY HISTORY: Unavailable. REVIEW OF SYSTEMS: Unable to get. PHYSICAL EXAMINATION: GENERAL: The patient is a 72-year-old lying in the bed, not following commands. VITAL SIGNS: Temperature 96, pulse is 106, respiratory rate 26, blood pressure 71/36. HEENT: Normocephalic, atraumatic, legally blindness noted. Tongue more pink and dry. NECK: Supple. HEART: Regular, tachycardia noted. CHEST AND LUNG: Equal in expansion with mild expiratory wheezing. ABDOMEN: Soft. Bowel sounds are present. EXTREMITIES: No edema. NEUROLOGIC: Not following any commands. AVAILABLE DIAGNOSTIC DATA: BUN and creatinine as I mentioned 105/10, potassium of 5.5, bicarbonate of 4, hemoglobin of 10, platelet count of 287. Ammonia of 226. CLINICAL IMPRESSION: 1. Hypotension, multifactorial etiology in the view of acute renal failure and significant metabolic acidosis and history of benign prostatic hypertrophy and hypertension. Etiology septic shock along with severe metabolic acidosis, decrease in cardiac function, causing him to have hypotension. 2. Elevated BUN and creatinine, acute in origin. Etiology needs to determine secondary to acute tubular necrosis. 3. Anion gap metabolic acidosis. 4. Electrolyte imbalance. 4. Diabetes. 5. Hypothyroidism. 6. Psychotic disorder. PLAN: 1. Admit this patient to ICU. 2. IV fluid. 3. Stat renal consult. 4. GI consult. 5. Insert NG tube. 6. Start lactulose. 7. Manage I's and O's. 8. Correct electrolytes. 9. Acute kidney injury workup. 10. Broad spectrum antibiotics. 11. Infectious Disease consultation. 12. Blood cultures. 13. DIC panel. 14. Cardiology consultation for hypotension. 15. Psychiatrist is to follow once the patient is stable. 16. Appropriate home medicine reconciliation. 17. Overall prognosis is guarded. 18. Care plan reviewed and discussed with staff. JOB# [id number]
[2018-02-14] MEDS: Phenylephrine HCl 50 MG in Sodium Chloride 0.9% 250 ML IV SCH ×2 (17:08→22:32)
[2018-02-14] MEDS ORDERED: Sodium Chloride 0.9% 500 ML IV ONE (17:17)
[2018-02-14 17:50] LABS: pH < 6.80 (7.35-7.45)
[2018-02-14 17:51] LABS: ALLEN TEST Positive
[2018-02-14] MEDS ORDERED: metroNIDAZOLE 500mg/NS 100mL 500 MG/100 ML BAG IV SCH (18:00)
[2018-02-14] MEDS ORDERED: Sodium Bicarbonate 8.4% 200 MEQ in Sodium Chloride 0.9% 1,000 ML IV SCH (18:45)
[2018-02-14] MEDS: INSULIN ASPART SLIDING SCALE 100 UNITS/ML UNIT SUBQ SCH (18:54)
[2018-02-14] MEDS ORDERED: Budesonide 0.5 Mg/2 mL Ud HHN SCH (19:00)
[2018-02-14] MEDS ORDERED: Albuterol/Ipratropium Neb 3 ML AERS HHN SCH ×2 (19:00)
[2018-02-14 19:18] LABS: URINE SOURCE FOLEY PORT
[2018-02-14] MEDS: Lactulose 10 Gm/15 mL 30mL UDC PO SCH ×2 (19:34→21:00)
[2018-02-14 19:55] LABS: URINE CLARITY CLOUDY (CLEAR); URINE COLOR YELLOW; URINE MICROSCOPIC INDICATED? YES
[2018-02-14 19:56] LABS: URINE BILIRUBIN NEGATIVE (NEGATIVE); URINE BLOOD LARGE (NEGATIVE); URINE GLUCOSE (UA) 100 mg/dL (NEGATIVE); URINE KETONE 15 mg/dL (NEGATIVE); URINE LEUKOCYTE ESTERASE SMALL (NEGATIVE); URINE NITRATE NEGATIVE (NEGATIVE); URINE PROTEIN >300 mg/dL (NEGATIVE); URINE UROBILINOGEN 0.2 E.U./dL (0.2 - 1.0)
[2018-02-14 19:58] LABS: URINE BACTERIA 1+ /hpf (NONE SEEN); URINE EPITHELIAL CELLS FEW /lpf (FEW)
[2018-02-14] MEDS ORDERED: DOPamine 800 MG/250 ML BAG IV PRN (19:58)
[2018-02-14] MEDS ORDERED: DOPAMINE IV ONE (20:05)
[2018-02-14] MEDS: DOPamine 400 MG/250 ML BAG IV PRN (20:19)
[2018-02-14] MEDS: Meropenem 500 MG in Sodium Chloride 0.9% 100 ML IV SCH (20:32)
[2018-02-14] MEDS ORDERED: Albumin 5% 12.5gm/250mL 12.5 GM/250 ML BTL IV ONE (21:30)
[2018-02-14] MEDS ORDERED: Sodium Chloride 0.9% 1,000 ML IV ONE (21:32)
--- NOTE | 2018-02-14 21:48 | Consultation ---
Consult Note - Consult Note Service Date: 02/14/18 Referring Physician: Brandon Nance Consult Note: PHYSICIAN Consultation Note: Date of Admission: 02/14/18 Purpose of Consultation: Septic shock Chief Complaint: Patient DELLA CORRALES was admitted to location Intensive Care Unit with [facility] LELE. History of Present Illness: 72-year-old male with a past medical history of diabetes mellitus type 2, BPH, hypertension, hypothyroidism, psychiatric disorder, dementia, DJD admitted to geropsychiatric unit for psychosis and related illness on 02/05/2018 from [facility]. For last 2 days, he was noted that he was not eating well. Today, he became very lethargic. Blood pressure went very low. Stat labs were performed and it revealed bicarbonate of 4 with creatinine 10 and BUN 105. Ammonia was 226. Patient was transferred to the ICU. Currently, he is unable to give any history. His systolic blood pressure is in 50s , even on vasopressors Levophed, Edis-Synephrine and dopamine. Patient has received 2 L normal Cerner bolus. As patient is a has severe metabolic acidosis and acute renal failure, he has received 6 samples of bicarbonate. Previously ABG was showing pH of less than 6.8. His lactic acid was 18 and was 16. ID consult for management of septic shock with severe lactic acidosis and metabolic acidosis. Antibiotic-reese, patient is receiving meropenem and Flagyl. Patient is unresponsive and gasping in for air. He is on BiPAP. Past Medical History: diabetes mellitus type 2, BPH, hypertension, hypothyroidism, psychiatric disorder, dementia, DJD Allergies Allergy/AdvReac Type Severity Reaction Status Date / Time paroxetine [From Paxil] Allergy Verified 02/05/18 14:32 Vital Signs Temp 96.0 F 02/14/18 15:03 Pulse 81 02/14/18 19:30 Resp 18 02/14/18 17:30 BP 59/29 02/14/18 19:30 Pulse Ox 100 02/14/18 17:30 Intake & Output 02/14/18 02/14/18 02/15/18 06:59 18:59 06:59 Intake Total 359.000 Balance 359.000 Intake: Intake, IV Amount 359.000 Norepinephrine 8 mg In 258.000 Dextrose 5% 250 ml @ 8 MCG/MIN 15.48 mls/hr IV TITR PRN Rx#:[id number] Phenylephrine HCl 50 mg 51 In Sodium Chloride 0.9% 250 ml @ 0 MCG/MIN IV TITR [facility] Rx#:[id number] Piperacillin Sodium/ 50 Tazobact 2.25 gm In Sodium Chloride 0.9% 50 ml @ 100 mls/hr IV Q8H [facility] Rx#:[id number] Other: Stool Characteristics Soft Formed Weight Source Bedscale Laboratory Results - last 24 hr 02/14/18 02/14/18 02/14/18 15:26 15:50 15:50 WBC 8.6 RBC 3.31 L Hgb 8.5 L Hct 26.7 L MCV 80.7 MCH 25.6 L MCHC Differential 31.7 RDW 19.1 Plt Count 301 MPV 8.9 Neutrophils % 75.5 Lymphocytes % 22.9 Monocytes % 1.2 L Eosinophils % 0.4 Basophils % 0.0 Specimen Source Sample Site pH pCO2 pO2 Garfield Test Vent Rate Inspired O2 Tidal Volume PEEP Pressure (ins/psv/peep) Critical Value Sodium 140 Potassium 5.6 H Chloride 95 L Carbon Dioxide 5.4 L* Anion Gap 45.2 H BUN 107 H* Creatinine 9.7 H* Est GFR ( Amer) TNP Est GFR (Non-Af Amer) TNP BUN/Creatinine Ratio 11.0 Glucose 185 H POC Glucose 163 H Whole Bld Lactic Acid Calcium 8.7 Magnesium 2.5 Total Bilirubin 0.2 L AST 127 H ALT 93 H Alkaline Phosphatase 48 Total Protein 4.7 L Albumin 2.6 L Globulin 2.1 Albumin/Globulin Ratio 1.2 Urine Source Urine Color Urine Clarity Urine pH Ur Specific [place] Urine Protein Urine Glucose (UA) Urine Ketones Urine Blood Urine Nitrate Urine Bilirubin Urine Urobilinogen Ur Leukocyte Esterase Urine RBC Urine WBC Ur Epithelial Cells Urine Bacteria 02/14/18 02/14/18 02/14/18 15:50 16:48 17:20 WBC RBC Hgb Hct MCV MCH MCHC Differential RDW Plt Count MPV Neutrophils % Lymphocytes % Monocytes % Eosinophils % Basophils % Specimen Source Arterial Sample Site Left Radial pH < 6.80 L* pCO2 28.0 L pO2 285.0 H Garfield Test Positive Vent Rate N/A Inspired O2 N/A Tidal Volume N/A PEEP N/A Pressure (ins/psv/peep) N/A Critical Value DM Sodium Potassium Chloride Carbon Dioxide Anion Gap BUN Creatinine Est GFR ( Amer) Est GFR (Non-Af Amer) BUN/Creatinine Ratio Glucose POC Glucose 275 H Whole Bld Lactic Acid 18.13 H* Calcium Magnesium Total Bilirubin AST ALT Alkaline Phosphatase Total Protein Albumin Globulin Albumin/Globulin Ratio Urine Source Urine Color Urine Clarity Urine pH Ur Specific [place] Urine Protein Urine Glucose (UA) Urine Ketones Urine Blood Urine Nitrate Urine Bilirubin Urine Urobilinogen Ur Leukocyte Esterase Urine RBC Urine WBC Ur Epithelial Cells Urine Bacteria 02/14/18 02/14/18 18:35 18:45 WBC RBC Hgb Hct MCV MCH MCHC Differential RDW Plt Count MPV Neutrophils % Lymphocytes % Monocytes % Eosinophils % Basophils % Specimen Source Sample Site pH pCO2 pO2 Garfield Test Vent Rate Inspired O2 Tidal Volume PEEP Pressure (ins/psv/peep) Critical Value Sodium Potassium Chloride Carbon Dioxide Anion Gap BUN Creatinine Est GFR ( Amer) Est GFR (Non-Af Amer) BUN/Creatinine Ratio Glucose POC Glucose Whole Bld Lactic Acid 16.22 H* Calcium Magnesium Total Bilirubin AST ALT Alkaline Phosphatase Total Protein Albumin Globulin Albumin/Globulin Ratio Urine Source [place] Urine Color YELLOW Urine Clarity CLOUDY Urine pH 6.0 Ur Specific [place] 1.025 Urine Protein >300 H Urine Glucose (UA) 100 H Urine Ketones 15 H Urine Blood LARGE H Urine Nitrate NEGATIVE Urine Bilirubin NEGATIVE Urine Urobilinogen 0.2 Ur Leukocyte Esterase SMALL H Urine RBC 10-25 H Urine WBC 6-10 Ur Epithelial Cells FEW Urine Bacteria 1+ H Home Medication Medication Instructions Recorded Type Acetaminophen [Tylenol] 650 mg PO Q4HR PRN tab 02/14/18 Rx Al Hyd/Mg Hyd/Simethicone [Maalox] 30 ml PO Q4HR PRN udc 02/14/18 Rx Atorvastatin Calcium [Lipitor] 80 mg PO HS tab 02/14/18 Rx Atropine 1% Ophth Soln [Isopto 1 drop RIGHT EYE HS drops 02/14/18 Rx Atropine 1% Ophth Soln] Carvedilol [Coreg] 3.125 mg PO BID tab 02/14/18 Rx Ciprofloxacin [Cipro] 500 mg PO BID tab 02/14/18 Rx Ferrous Sulfate [Iron] 325 mg PO BID tab 02/14/18 Rx Insulin Aspart Sliding Scale See Protocol SUBQ ACHS unit 02/14/18 Rx [NovoLOG INSULIN SLIDING SCALE] Lactobacillus Rhamnosus GG 15B 1 each PO DAILY cap.[email or web address] 02/14/18 Rx [Culturelle 15B] Levothyroxine [Synthroid] 0.1 mg PO QDAC tab 02/14/18 Rx Lisinopril [Zestril*] 10 mg PO DAILY tab 02/14/18 Rx Lorazepam [Ativan] 0.5 mg PO Q4HR PRN tab 02/14/18 Rx Magnesium Hydroxide [Milk of 30 ml PO HS PRN udc 02/14/18 Rx Magnesia] Mirtazapine [Remeron] 15 mg PO HS tab 02/14/18 Rx Multivitamin [Theragran] 1 tab PO DAILY tab 02/14/18 Rx Mupirocin Oint [Mupirocin*] 1 appl TP BID appl 02/14/18 Rx Ondansetron [Zofran Odt] 4 mg PO Q6H PRN odt 02/14/18 Rx Pantoprazole [Protonix] 40 mg PO DAILY ect 02/14/18 Rx aripIPRAZOLE [Abilify] 15 mg PO DAILY tab 02/14/18 Rx risperiDONE [RisperDAL] 3 mg PO HS tab 02/14/18 Rx Current Medications Generic Name Dose Route Start Last Admin Trade Name Freq PRN Reason Stop Dose Admin Acetaminophen 325 mg 02/14/18 15:47 Tylenol PO 04/15/18 15:46 Q6H PRN MILD PAIN/HEADACHE/TEMP > 101 Albuterol/Ipratropium 3 ml 02/14/18 19:00 Duoneb Neb [facility] 04/15/18 18:59 [id number] STACEY Albuterol/Ipratropium 3 ml 02/14/18 15:37 Duoneb Neb [facility] 04/15/18 15:36 Q2HRT PRN Shortness of Breath Albuterol/Ipratropium 3 ml 02/14/18 19:00 02/14/18 19:58 Duoneb Neb [facility] 04/15/18 18:59 3 ml Q4HRT STACEY Administration Budesonide 0.25 mg 02/14/18 19:00 02/14/18 19:58 Pulmicort N 04/15/18 18:59 0.25 mg BIDRT STACEY Administration Norepinephrine Bitartrate 8 mg 258 mls @ 15.48 mls/hr 02/14/18 15:04 18:53 / Dextrose IV 04/15/18 15:03 40 mcg/min TITR PRN 77.4 mls/hr BP MAINTENANCE (PER PROTOCOL) Administration Protocol 8 MCG/MIN Piperacillin Sod/Tazobactam 50 mls @ 100 mls/hr 02/14/18 16:00 02/14/18 17:05 Sod 2.25 gm/ Sodium Chloride IV 04/15/18 15:59 Infused Q8H STACEY Infusion Meropenem 500 mg/ Sodium 100 mls @ 100 mls/hr 02/14/18 20:00 Chloride IV 04/15/18 19:59 Q24H STACEY Metronidazole 500 mg in 100 mls @ 100 mls/hr 02/14/18 18:00 Flagyl IV 04/15/18 17:59 Q8H STACEY Phenylephrine HCl 50 mg/ 250 mls @ 0 mls/hr 02/14/18 17:01 02/14/18 18:50 Sodium Chloride IV 04/15/18 16:44 180 mcg/min TITR STACEY 54 mls/hr Titration Protocol 0 MCG/MIN Sodium Bicarbonate 150 meq/ 1,150 mls @ 150 mls/hr 02/14/18 19:00 02/14/18 19 :07 Dextrose/Sodium Chloride IV 04/15/18 18:59 150 mls/hr .Q7H40M STACEY Administration Dopamine HCl/Dextrose 800 mg in 250 mls @ 0 mls/hr 02/14/18 19:58 Dopamine IV 04/15/18 19:57 TITR PRN BP MAINTENANCE (PER PROTOCOL) Protocol Titrate Albumin Human 12.5 gm in 250 mls @ 62.5 mls/hr 02/14/18 21:30 Albutein 5% IV 02/15/18 01:29 X1 ONE Insulin Aspart 0 units 02/14/18 16:30 02/14/18 18:54 Novolog Insulin Sliding Scale SUBQ 04/15/18 16:29 6 units ACHS STACEY Administration Protocol Lactulose 30 gm 02/14/18 16:00 02/14/18 19:34 Cephulac PO 04/15/18 15:59 Not Given TID STACEY Ondansetron HCl 4 mg 02/14/18 15:47 Zofran IVP 04/15/18 15:46 Q6H PRN Nausea / Vomiting Review of Systems: A 12 point ROS was reviewed with the pertinent positive and negatives noted in the HPI. Unable to get any history. Patient is hypothermic and he is covered by warming blanket. He is hypotensive and receiving multiple vasopressors and IV fluid support. Social History Smoking Status Unknown if ever smoked Physical Exam: General: Lying in bed or obese not in acute distress HEENT: Head: Normocephalic, atraumatic. Oral cavity: Dry mucosa. Eyes with right cornea on the right eye is some conjunctival injection left eye is closed Neck: Supple, no JVD. No use of accessory neck muscles. Cardio: S1 and S2 within normal limits regular rhythm no murmur no gallop Respiratory: Vesicular breath sound, no crackles, no wheezing. Abdominal: Soft, nontender nondistended bowel sounds present Genital/Urinary: Deferred. Suprapubic catheter. Extremities: No cyanosis, no clubbing, no edema pulses are palpable in all 4 extremities. There is some erythema and some scab over the right wrist Neurological: Comatose. Unable to respond. Assessment: 1. Severe septic shock. Lactic acidosis. 2. UTI. 3. Acute kidney injury, dehydration. 4. Altered mental status, secondary to metabolic encephalopathy. 5. Severe metabolic acidosis. 6. Respiratory failure. 7. Hypotension, multifactorial including dehydration, sepsis. 6. Diabetes mellitus type 2. 7. BPH. 8. Obesity. 9. Metabolic acidosis. 10. Psychosis. 11. Suprapubic catheter Plan: Give normal saline bolus. Change IV fluid to D5 half normal saline with 2 ampules of bicarbonate per L of fluid at that of 250 mL per hour. If systolic blood pressure improves above 90 may decrease IV fluid to 150 mL per hour. Antibiotic reese, give vancomycin 1 g IV 1 dose and continue meropenem and discontinue Flagyl at this time. Sepsis workup performed. Renal ultrasound. Continue vasopressors including Levophed, Edis-Synephrine, and dopamine. Will give 25% albumin 200 mL 1 IV. Condition is very critical. Prognosis seems poor at this moment. Thank you, Dr. Nance, for involving me in taking care of this patient. Neida, Lincoln Turner M.D. [id number]
[2018-02-14] MEDS ORDERED: Albumin 25% 25gm/100mL 25 GM/100 ML BTL IV ONE (22:40)
[2018-02-14 22:42] LABS: pH < 6.80 (7.35-7.45)
[2018-02-14 22:44] LABS: ALLEN TEST yes
--- NOTE | 2018-02-14 23:06 | Consultation ---
DATE OF CONSULTATION: 02/14/2018 PULMONARY CONSULTATION NOTE REASON FOR CONSULTATION: Acute respiratory failure. CONSULT NOTE This is a 72-year-old gentleman, who was basically admitted to [facility] as the patient become mentally altered with significant biochemical abnormality including hypotension, low bicarbonate as well as severe high ammonia level with creatinine as well as BUN level. The patient was moved to Intensive Care Unit. The patient was hypotensive, multiple vasopressors has been started including bicarbonate drip. I have discussed his care and plan with Dr. Nance earlier before I saw the patient. The patient is a full code. PHYSICAL EXAMINATION: GENERAL: The patient is currently very poorly responsive. VITAL SIGNS: Temperature is around 99, pulse is in 80s, blood pressure is in 70s to 80s, on multiple vasopressors; and saturation is 100% on 100% FiO2. HEENT: Examination of the head is essentially unremarkable. Pupils appears to be poorly sluggish to light. Mouth shows dentures in upper plate. Throat is dry mouth. NECK: No nodes in the neck could be palpated. CHEST: Shows diminished air entry without much of adventitious breath sounds. HEART: Tachycardic. ABDOMEN: Soft, nontender. EXTREMITIES: Shows poor pulsations. No cyanosis or clubbing. LABORATORY DATA: The patient's initial CBC: White count is 8.6, hemoglobin is 8.5, pH of 7.68, pO2 of 60-85, and CO2 content is 28. The patient's potassium is 5.6, BUN is only 7, creatinine is 9.7, and lactic acid is 18. The patient's urine shows positive protein, large ketones as well as multiple bacteria. IMAGING DATA: Chest x-ray at this time is not available to me for review. IMPRESSION: The patient has multisystem failure with possibly septic shock with acute renal failure, altered level of consciousness with significant lactic acidemia. We will intubate. The patient was intubated by direct visualization without difficulty and a chest x-ray is pending. PLANS AND SUGGESTIONS: Discussed with Dr. Lincoln Turner. We will give limited dose of steroid. Continue vent control. Continue vasopressors. Overall, prognosis appears to be very poor and we will be glad to follow along with you. JOB# [id number]
[2018-02-14] MEDS: Albuterol/Ipratropium Neb 3 ML AERS HHN SCH (23:16)
[2018-02-15] MEDS: INSULIN ASPART SLIDING SCALE 100 UNITS/ML UNIT SUBQ SCH ×3 (00:32→13:37)
[2018-02-15] MEDS ORDERED: INSULIN ASPART, RECOMBINANT 100 UNITS/ML SUBQ ONE ×3 (00:51→10:30)
[2018-02-15] MEDS: Phenylephrine HCl 50 MG in Sodium Chloride 0.9% 250 ML IV SCH ×5 (02:46→21:33)
[2018-02-15] MEDS: Albuterol/Ipratropium Neb 3 ML AERS HHN SCH ×5 (03:08→19:06)
[2018-02-15] MEDS ORDERED: INSULIN HUMAN REGULAR 100 UNITS/ML UNIT ONE (03:14)
[2018-02-15] MEDS: methylPREDNISolone SS 40 mg Vial IV SCH ×5 (04:24→22:00)
--- NOTE | 2018-02-15 05:10 | Operative Report ---
DATE OF SURGERY: 02/14/2018 REASON FOR INTUBATION: Acute respiratory failure. NAME OF THE PROCEDURE: Emergency intubation. INDICATION: Acute respiratory failure, septic shock. PROCEDURE NOTE: The procedure was done at the bedside with the head extended below the neck with a pillow under the shoulder blade. Subsequently, towards the head of the side, I had extended the neck to direct laryngoscope and in the mouth, oropharyngeal fossa was lifted. Vocal cords were visualized and an 8 size endotracheal tube was directly put into the airway without difficulty through the vocal cords. Good bilateral auscultation at passages was noticed and subsequently a respirator was attached to the ventilator with routine orders and routine post-procedure x-ray was ordered. JOB# [id number]
[2018-02-15 05:21] LABS: INR 1.6 (0.5-1.4); PROTHROMBIN TIME (TEST) 16.2 SECONDS (9.5-11.5)
[2018-02-15 05:32] LABS: ALB/GLOB RATIO 1.3 (1.0-1.8); ALBUMIN 2.6 gm/dL (4.2-5.5); ALKALINE PHOSPHATASE 47 U/L (34-104); ANION GAP 34.8 (7.0-16.0); BILIRUBIN,TOTAL 0.3 mg/dL (0.3-1.0); CALCIUM SERUM 6.7 mg/dL (8.6-10.3); CARBON DIOXIDE 11.2 mEq/L (21.0-31.0); CHLORIDE 93 mEq/L (98-107); MAGNESIUM 1.8 mg/dL (1.9-2.7); SGOT 150 U/L (13-39); SGPT/ALT 96 U/L (7-52); SODIUM SERUM 134 mEq/L (136-145); TOTAL PROTEIN,SERUM 4.6 gm/dL (6.0-8.3)
[2018-02-15 05:36] LABS: BUN - UREA NITROGEN 101 mg/dL (7-25); GLUCOSE 607 mg/dL (70-105)
[2018-02-15 05:51] LABS: BILIRUBIN,DIRECT 0.04 mg/dL (0.0-0.2)
[2018-02-15] MEDS: Budesonide 0.5 Mg/2 mL Ud HHN SCH ×2 (07:15→19:06)
[2018-02-15 07:50] LABS: HEMATOCRIT 27.3 % (41.0-60); HEMOGLOBIN 8.8 gm/dL (12-16); LYMPHOCYTE ABSOLUTE 0.3 Th/cmm (1.5-3.0); MEAN CELL VOLUME 78.1 fl (80-99); MEAN CORPUSCULAR HEMOGLOBIN 25.3 pg (27.0-31.0); MEAN CORPUSCULAR HGB CONC 32.4 pg (28.0-36.0); MEAN PLATELET VOLUME 8.6 fl; MONOCYTE ABSOLUTE 0.3 Th/cmm (0.3-1.0); NEUTROPHILE ABSOLUTE 13.4 Th/cmm (1.8-8.0); RED BLOOD COUNT 3.49 Mil/cmm (3.80-5.80); RED CELL DISTRIBUTION WIDTH 19.4 % (11.5-20.0)
[2018-02-15 07:52] LABS: PLATELET COUNT 227 Th/cmm (150-400)
[2018-02-15] MEDS ORDERED: SODIUM BICARBONATE IV SCH (08:20)
[2018-02-15] MEDS ORDERED: D5 IV SCH (08:20)
[2018-02-15] MEDS ORDERED: [UNRECOGNIZED DRUG - OTHER] IV SCH (08:20)
[2018-02-15 08:21] LABS: BAND NEUTROPHILE 9 % (0-10); LYMPHOCYTE 4 % (20-50); MONOCYTE 1 % (2-10); NEUTROPHILS 86 % (40-80); PLATELET ESTIMATE ADEQUATE (NORMAL)
[2018-02-15 08:22] LABS: ANISOCYTOSIS 1+; BURR CELLS 2+; POIKILOCYTOSIS 2+
[2018-02-15] MEDS: Lactulose 10 Gm/15 mL 30mL UDC PO SCH ×3 (09:00→21:58)
--- NOTE | 2018-02-15 09:19 | Consultation ---
DATE OF CONSULTATION: 02/14/2018 GI CONSULTATION ATTENDING PHYSICIAN: Dr. Nance. CONSULTING PHYSICIAN: Dr. Pascual Arriola. REASON FOR CONSULTATION: Vomiting, hypertension and anemia. HISTORY OF PRESENT ILLNESS: This is a 72-year-old male who basically was residing in the Psych Unit here in [facility] and the patient was found to be hypotensive and very pale and the lab test was performed, which showed white count 10.8, hemoglobin 10, hematocrit 30.4, hypochromic microcytic indices and patient also had a BUN 106 and creatinine 10. The patient is unable to provide the history, so most of the history is obtained by reviewing the records from the psych unit. The patient is hypotensive and having shortness of breath and NG tube has been placed, which showed a brown color secretions. SOCIAL HISTORY: The patient does not smoke, does not drink. PAST MEDICAL HISTORY: Remarkable for history of diabetes mellitus, history of hypertension, BPH, the osteoarthritis, hypothyroidism, psychotic disorder, dementia and history of anemia. MEDICATIONS: The patient has been on multiple medications including glucophage, insulin, Lipitor, Maalox, Lovenox, Coreg, Synthroid, Zestril, lorazepam, milk of magnesia and Protonix. REVIEW OF SYSTEMS: Unobtainable from the patient. ALLERGIES: ALLERGIC TO PAXIL. PHYSICAL EXAMINATION: GENERAL: The patient is a thin built male, who appears very cachectic and weak and pale, noncommunicative. VITAL SIGNS: Temperature is 97, respiratory rate is 24, blood pressure is 80/50, and the patient is getting IV fluid and heart rate is 100. HEENT: Head is normocephalic. Pupils are reactive to light. Conjunctivae are pale. No scleral icterus. NECK: The patient had NG tube in place. LUNGS: Reveal decreased breath sound, no evidence of any rales. ABDOMEN: Soft, no organomegaly, no tenderness. Intestinal sounds are present. RECTAL: Not performed. EXTREMITIES: No peripheral edema, cyanosis or jaundice. LABORATORY DATA: As dictated in the history of present illness. IMPRESSION: 1. Vomiting, most likely due to uremia, also cannot rule out peptic ulcer disease or upper GI tumor. 2. Hypochromic microcytic anemia, most likely from the slow gastrointestinal bleeding. 3. Diabetes mellitus. 4. Hypertension. 5. Renal failure could be a chronic as well as acute. RECOMMENDATION: We will continue the patient on proton-pump inhibitor and will also check the ultrasound of the abdomen and eventually the patient will need EGD and colonoscopy if he did not have before. Thank you for the consult. Dr. Shearer will follow this patient with you. JOB# [id number]
--- NOTE | 2018-02-15 09:31 | Diagnostic Imaging Report ---
Portable chest x-ray HISTORY: Increased shortness of breath, endotracheal tube placement Compared with prior exam performed earlier in the day (1609 hours), an endotracheal tube has been inserted. The tip is approximately 3.5 cm above the leticia. There has developed abnormal density in the left lower hemithorax. Findings suggest changes associated with atelectasis/collapse left lower lobe. Pleural fluid cannot be excluded. IMPRESSION: 1. New abnormal density within the left lower hemithorax suggesting atelectasis/collapse of the left lower lobe. Pleural fluid cannot be excluded. 2. Endotracheal tube placement as noted above
--- NOTE | 2018-02-15 09:33 | Diagnostic Imaging Report ---
Portable chest x-ray HISTORY: Shortness of breath Heart size difficult to assess with portable technique. No focal bony processes. A nasogastric tube is situated in the upper fundal region of the stomach. The sidehole is above the diaphragm. This may be advanced approximately 6.0 cm. IMPRESSION: 1. Nasogastric replacement as noted above 2. No focal pulmonary processes
--- NOTE | 2018-02-15 09:33 | Diagnostic Imaging Report ---
Portable chest x-ray HISTORY: Shortness of breath Compared with the prior exam of 02/14/2018, there remains abnormal density in the left lower hemithorax. Again, focal consolidation and/or atelectasis cannot be excluded. Question mucous plug. Left pleural effusion cannot be excluded. An endotracheal tube tip remains approximately 3.5 cm above the leticia. IMPRESSION: 1. No significant change in the pulmonary status as noted above.
[2018-02-15] MEDS ORDERED: Albumin 5% 12.5gm/250mL 12.5 GM/250 ML BTL IV ONE (10:21)
[2018-02-15] MEDS: DOPamine 400 MG/250 ML BAG IV PRN ×5 (10:38→22:08)
--- NOTE | 2018-02-15 12:16 | Consultation ---
DATE OF CONSULTATION: 02/14/2018 ATTENDING PHYSICIAN: Dr. Brandon Nance. REASON FOR CONSULTATION: Worsening kidney function, electrolyte imbalance, and fluid management. HISTORY OF PRESENT ILLNESS: This is a 52-year-old male with past medical history of psychosis who was brought in because of altered level of consciousness. A few hours prior to admission, the patient was found unresponsive by [facility] staff. His white count was 10.8 with a temperature of 96.1. Potassium was 5.5 with a CO2 of 4, BUN/creatinine of 105/100. Ammonia level was 226. He was transferred to ICU. PAST MEDICAL HISTORY: 1. Type 2 diabetes mellitus. 2. Benign prostatic hypertrophy. 3. Essential hypertension. 4. Hypothyroidism. 5. Psychosis. 6. Alzheimer's dementia. 7. Anemia of chronic disease. CURRENT MEDICATIONS: He is currently on acetaminophen, albuterol/ipratropium, Abilify, Lipitor, atrophy, Coreg, Cipro, iron, Zosyn, aspart, lactobacillus, lactulose, levothyroxine, lisinopril, lorazepam, magnesium hydroxide, mirtazapine, multivitamins, mupirocin, ondansetron, pantoprazole, risperidone. ALLERGIES: ALLERGIC TO PAXIL. SOCIAL AND FAMILY HISTORY: I was unable to obtain directly from the patient because of his depressed mental status. REVIEW OF SYSTEMS: Again, I was not able to decipher directly from the patient because of the same reason. PHYSICAL EXAMINATION: GENERAL: The patient is obtunded, mild to moderate respiratory distress. VITAL SIGNS: His blood pressure is 71/36, respirations 26, pulse 106, temperature 96.1 degrees. SKIN: Very poor turgor, warm. No rash, nor jaundice appreciated. HEENT: Head normocephalic, atraumatic. Eyes: Unable to assess his extraocular muscles. Pupils are equal, round, reactive to light and accommodates. Anicteric sclerae. Pale conjunctivae. Nose, midline nasal septum. Mouth, very dry mucosa. Poor dentition. NECK: Supple, no adenopathy, no thyromegaly, no bruits. Trachea palpated in the midline. CHEST AND CARDIOVASCULAR: S1, S2. No rub, murmur. No gallop appreciated. Point of maximal impulse fifth intercostal space, left midclavicular line. No abdominal or femoral bruits appreciated. LUNGS: Equal expansion. No use of accessory muscles. No supraclavicular retractions. Decreased breath sounds, scattered rhonchi, but no rales nor wheezes appreciated. ABDOMEN: Flat, soft. Positive for bowel sounds. No bruits either diastolic or systolic. RECTAL: Lax sphincter tone. GENITOURINARY: Normal-appearing male genitalia. MUSCULOSKELETAL: No effusions present in his joints, but unable to assess his range of motion. EXTREMITIES: No evidence of any edema, cyanosis nor clubbing with palpable femoral, but unable to fully appreciate popliteal and dorsalis pedis pulses. NEUROLOGIC: The patient remains obtunded, so I was not able to pursue further my neuro exam. LABORATORY DATA: White count 8.8, hemoglobin 10, hematocrit 30.4, platelets 287, polys 87%. Sodium is 134, potassium 5.5, chloride 92, CO2 is 4, BUN 105, creatinine 10, glucose is 181, calcium 9.2. Ammonia 226. IMPRESSION: 1. Acute kidney injury. The patient was found unresponsive. His oral intake has diminished last previous days due to his psychosis. Thus, he became eventually dehydrated. He had prerenal azotemia, which eventually progress to acute tubular injury. The possibility also of sepsis with a urinary tract infection should be considered and he may also have developed acute interstitial nephritis. 2. Acute loss of consciousness, possibly secondary to metabolic encephalopathy due to history of uremia, he is on multiple psychotic medications, which could affect his mentation as well as high risk for developing CVA with history of diabetes, hypertension, etc. 3. Anion gap metabolic acidosis with non-gap acidosis secondary to uremia and also possibly lactic acidosis. 4. Shock possibly septic in nature, but also need to consider severe dehydration causing hypovolemia. 5. Sepsis, possibly urinary tract infection, also consider any underlying healthcare-acquired pneumonia. 6. Hyperkalemia secondary to his kidney failure, acidosis, diabetes. 7. Severe dehydration. 8. Type 2 diabetes mellitus. 9. History of hypertension. 10. Hypothyroidism. 11. Psychosis. 12. Alzheimer dementia. 13. Anemia of chronic disease. PLAN: 1. IV fluids. 2. Consider pressors. 3. Sodium bicarbonate as needed. 4. Renal ultrasound. 5. Dupree culture. 6. Followup CT scan of the head. 7. Oxygen. 8. ABG. 9. Broad spectrum antibiotics. 10. Electrolytes. Lactic acid level along with troponins. JOB# [id number]
--- NOTE | 2018-02-15 14:18 | General Progress Note ---
Subjective - Review of Systems Service Date: 02/15/18 Subjective: obtunded, on vent Objective - Results Result Diagrams: 02/15/18 05:00 02/15/18 05:00 Recent Labs: Laboratory Last Values WBC 14.0 Th/cmm (4.8-10.8) H D 02/15/18 05:00 RBC 3.49 Mil/cmm (3.80-5.80) L 02/15/18 05:00 Hgb 8.8 gm/dL (12-16) L 02/15/18 05:00 Hct 27.3 % (41.0-60) L 02/15/18 05:00 MCV 78.1 fl (80-99) L 02/15/18 05:00 MCH 25.3 pg (27.0-31.0) L 02/15/18 05:00 MCHC Differential 32.4 pg (28.0-36.0) 02/15/18 05:00 RDW 19.4 % (11.5-20.0) 02/15/18 05:00 Plt Count 227 Th/cmm (150-400) D 02/15/18 05:00 MPV 8.6 fl 02/15/18 05:00 Add Manual Diff YES 02/15/18 05:00 Neutrophils % 75.5 % (40.0-80.0) 02/14/18 15:50 Band Neutrophils % 9 % (0-10) 02/15/18 05:00 Lymphocytes % 22.9 % (20.0-50.0) 02/14/18 15:50 Monocytes % 1.2 % (2.0-10.0) L 02/14/18 15:50 Eosinophils % 0.4 % (0.0-5.0) 02/14/18 15:50 Basophils % 0.0 % (0.0-2.0) 02/14/18 15:50 Neutrophils (Manual) 86 % (40-80) H 02/15/18 05:00 Lymphocytes 4 % (20-50) L 02/15/18 05:00 Monocytes 1 % (2-10) L 02/15/18 05:00 Platelet Estimate ADEQUATE (NORMAL) 02/15/18 05:00 Poikilocytosis 2+ 02/15/18 05:00 Anisocytosis 1+ 02/15/18 05:00 Microcytosis 1+ 02/15/18 05:00 Mary D Cells 2+ 02/15/18 05:00 RBC Morph Micro Appear ABNORMAL (NORMAL) 02/15/18 05:00 PT 16.2 SECONDS (9.5-11.5) H 02/15/18 05:00 INR 1.60 (0.5-1.4) H 02/15/18 05:00 Specimen Source arterial 02/14/18 21:28 Sample Site LF 02/14/18 21:28 pH < 6.80 (7.35-7.45) L* 02/14/18 21:28 pCO2 87.0 mmHg (35.0-45.0) H* 02/14/18 21:28 pO2 197.0 mmHg (80.0-100.0) H 02/14/18 21:28 HCO3 0.0 mEq/L (20.0-26.0) L 02/14/18 21:28 Base Excess 0.0 mEq/L (-3.0-3.0) 02/14/18 21:28 O2 Saturation 0.0 % (92.0-100.0) L 02/14/18 21:28 Garfield Test yes 02/14/18 21:28 Vent Rate n/a 02/14/18 21:28 Inspired O2 100 02/14/18 21:28 Tidal Volume n/a 02/14/18 21:28 PEEP n/a 02/14/18 21:28 Pressure (ins/psv/peep) n/a 02/14/18 21:28 Critical Value abroedel 02/14/18 21:28 Sodium 134 mEq/L (136-145) L 02/15/18 05:00 Potassium 5.0 mEq/L (3.5-5.1) 02/15/18 05:00 Chloride 93 mEq/L (98-107) L 02/15/18 05:00 Carbon Dioxide 11.2 mEq/L (21.0-31.0) L 02/15/18 05:00 Anion Gap 34.8 (7.0-16.0) H 02/15/18 05:00 BUN 101 mg/dL (7-25) H* 02/15/18 05:00 Creatinine 9.0 mg/dL (0.7-1.3) H* 02/15/18 05:00 Est GFR ( Amer) TNP 02/15/18 05:00 Est GFR (Non-Af Amer) TNP 02/15/18 05:00 BUN/Creatinine Ratio 11.2 02/15/18 05:00 Glucose 465 mg/dL (70-105) H* 02/15/18 12:52 POC Glucose 427 MG/DL (70 - 105) H 02/15/18 11:48 Whole Bld Lactic Acid 9.34 mmol/L (0.60-1.99) H* 02/15/18 07:25 Calcium 6.7 mg/dL (8.6-10.3) L 02/15/18 05:00 Phosphorus 11.0 mg/dL (2.5-5.0) H* 02/15/18 05:00 Magnesium 1.8 mg/dL (1.9-2.7) L 02/15/18 05:00 Total Bilirubin 0.3 mg/dL (0.3-1.0) 02/15/18 05:00 Direct Bilirubin 0.04 mg/dL (0.0-0.2) 02/15/18 05:00 AST 150 U/L (13-39) H 02/15/18 05:00 ALT 96 U/L (7-52) H 02/15/18 05:00 Alkaline Phosphatase 47 U/L (34-104) 02/15/18 05:00 Ammonia 151 umol/L (16-53) H 02/15/18 05:00 Total Protein 4.6 gm/dL (6.0-8.3) L 02/15/18 05:00 Albumin 2.6 gm/dL (4.2-5.5) L 02/15/18 05:00 Globulin 2.0 gm/dL 02/15/18 05:00 Albumin/Globulin Ratio 1.3 (1.0-1.8) 02/15/18 05:00 TSH 3.05 uIU/ml (0.34-5.60) 02/15/18 05:00 Urine Source POOLE PORT 02/14/18 18:35 Urine Color YELLOW 02/14/18 18:35 Urine Clarity CLOUDY (CLEAR) 02/14/18 18:35 Urine pH 6.0 (4.6 - 8.0) 02/14/18 18:35 Ur Specific [place] 1.025 (1.005-1.030) 02/14/18 18:35 Urine Protein >300 mg/dL (NEGATIVE) H 02/14/18 18:35 Urine Glucose (UA) 100 mg/dL (NEGATIVE) H 02/14/18 18:35 Urine Ketones 15 mg/dL (NEGATIVE) H 02/14/18 18:35 Urine Blood LARGE (NEGATIVE) H 02/14/18 18:35 Urine Nitrate NEGATIVE (NEGATIVE) 02/14/18 18:35 Urine Bilirubin NEGATIVE (NEGATIVE) 02/14/18 18:35 Urine Urobilinogen 0.2 E.U./dL (0.2 - 1.0) 02/14/18 18:35 Ur Leukocyte Esterase SMALL (NEGATIVE) H 02/14/18 18:35 Urine RBC 10-25 /hpf (0-5) H 02/14/18 18:35 Urine WBC 6-10 /hpf (0-5) 02/14/18 18:35 Ur Epithelial Cells FEW /lpf (FEW) 02/14/18 18:35 Urine Bacteria 1+ /hpf (NONE SEEN) H 02/14/18 18:35 - Physical Exam Vitals and I&O: Vital Signs Temp 98.0 F 02/15/18 05:00 Pulse 114 02/15/18 14:06 Resp 29 02/15/18 06:00 BP 100/32 02/15/18 08:31 Pulse Ox 95 02/15/18 14:06 Intake & Output 02/14/18 02/15/18 02/15/18 18:59 06:59 18:59 Intake Total 697.815 1871.56 981.815 Balance 352.277 0345.56 981.815 Intake: Intake, IV Amount 915.749 2503.56 981.815 DOPamine 400 mg In 250 ml 250 @ Per Protocol IV TITR PRN Rx#:[id number] Meropenem 500 mg In 100 Sodium Chloride 0.9% 100 ml @ 100 mls/hr IV Q24H [facility] Rx#:[id number] Norepinephrine 8 mg In 258.000 675.96 249.615 Dextrose 5% 250 ml @ 8 MCG/MIN 15.48 mls/hr IV TITR PRN Rx#:[id number] Phenylephrine HCl 50 mg 51 427.6 482.2 In Sodium Chloride 0.9% 250 ml @ 0 MCG/MIN IV TITR [facility] Rx#:[id number] Piperacillin Sodium/ 50 Tazobact 2.25 gm In Sodium Chloride 0.9% 50 ml @ 100 mls/hr IV Q8H [facility] Rx#:[id number] Sodium Bicarbonate 8.4% 1150 150 meq In D5-0.9%Ns 1, 000 ml @ 150 mls/hr IV . Q7H40M [facility] Rx#:[id number] Other: Stool Characteristics Soft Formed Weight Source Bedscale Active Medications: Current Medications Acetaminophen (Tylenol) 325 mg PO Q6H PRN PRN Reason: MILD PAIN/HEADACHE/TEMP > 101 Stop: 04/15/18 15:46 Albuterol/Ipratropium (Duoneb Neb) 3 ml HHN Q4HRT [facility] Stop: 04/15/18 22:59 Last Admin: 02/15/18 14:03 Dose: 3 ml Budesonide (Pulmicort) 0.5 mg HHN BIDRT [facility] Stop: 04/16/18 06:59 Last Admin: 02/15/18 07:15 Dose: 0.5 mg Norepinephrine Bitartrate 8 mg (/ Dextrose) 258 mls @ 15.48 mls/hr IV TITR PRN ; Protocol PRN Reason: BP MAINTENANCE (PER PROTOCOL) Stop: 04/15/18 15:03 Last Admin: 02/15/18 10:57 Dose: 30 mcg/min, 58.05 mls/hr Meropenem 500 mg/ Sodium (Chloride) 100 mls @ 100 mls/hr IV Q24H [facility] Stop: 04/15/18 19:59 Last Infusion: 02/14/18 21:32 Dose: Infused Phenylephrine HCl 50 mg/ (Sodium Chloride) 250 mls @ 0 mls/hr IV TITR [facility]; Protocol Stop: 04/15/18 16:44 Last Admin: 02/15/18 11:49 Dose: 180 mcg/min, 54 mls/hr Insulin Human Regular 100 (units/ Sodium Chloride) 101 mls @ 0 mls/hr IV TITR [facility]; Protocol Stop: 04/16/18 03:14 Sodium Bicarbonate 150 meq/ (Dextrose/Sodium Chloride) 1,150 mls @ 150 mls/hr IV .Q7H40M [facility] Stop: 04/15/18 18:59 Dopamine HCl/Dextrose (Dopamine) 400 mg in 250 mls @ 0 mls/hr IV TITR PRN; Protocol PRN Reason: BP MAINTENANCE (PER PROTOCOL) Stop: 04/15/18 20:18 Last Admin: 02/15/18 13:30 Dose: 30 mcg/kg/min, 90.831 mls/hr Albumin Human (Albutein 5%) 12.5 gm in 250 mls @ 62.5 mls/hr IV X1 ONE Stop: 02/15/18 14:20 Last Admin: 02/15/18 11:43 Dose: 62.5 mls/hr Dextrose/Sodium Chloride (D5-0.45ns) 1,000 mls @ 150 mls/hr IV .Q6H40M [facility] Stop: 04/16/18 11:30 Insulin Aspart (Novolog Insulin Sliding Scale) 0 units SUBQ ACHS [facility]; Protocol Stop: 04/15/18 16:29 Last Admin: 02/15/18 13:37 Dose: 12 units Lactulose (Cephulac) 30 gm PO TID [facility] Stop: 04/15/18 15:59 Last Admin: 02/15/18 09:00 Dose: Not Given Lorazepam (Ativan) 1 mg IVP Q4HR PRN; Protocol PRN Reason: Agitation Stop: 04/16/18 10:15 Methylprednisolone Sodium Succinate (Solu-Medrol) 40 mg IV Q6HR [facility] Stop: 02/19/18 22:59 Last Admin: 02/15/18 11:42 Dose: 40 mg Ondansetron HCl (Zofran) 4 mg IVP Q6H PRN PRN Reason: Nausea / Vomiting Stop: 04/15/18 15:46 General: Other (obtunded, on vent) HEENT: Atraumatic, Mucous membr. moist/pink Neck: Supple, +2 carotid pulse wo bruit Cardiovascular: Other (tachycardic) Lungs: Other (coarse rhonchi) Abdomen: Soft Extremities: no Edema Neurological: Sensation intact Skin: no Rash Psych/Mental Status: Mood NL Assessment/Plan - Assessment Assessment: LELE ALOC Shock septic Sepsis Cx UTI, Left HAP AG met Acid Severe Dehydration T2DM Hypothyroid Acute resp failure on Vent - Plan Plan: Lab - Result Diagrams 02/15/18 05:00 02/15/18 05:00 Current Medications Acetaminophen (Tylenol) 325 mg PO Q6H PRN PRN Reason: MILD PAIN/HEADACHE/TEMP > 101 Stop: 04/15/18 15:46 Albuterol/Ipratropium (Duoneb Neb) 3 ml HHN Q4HRT [facility] Stop: 04/15/18 22:59 Last Admin: 02/15/18 14:03 Dose: 3 ml Budesonide (Pulmicort) 0.5 mg HHN BIDRT [facility] Stop: 04/16/18 06:59 Last Admin: 02/15/18 07:15 Dose: 0.5 mg Norepinephrine Bitartrate 8 mg (/ Dextrose) 258 mls @ 15.48 mls/hr IV TITR PRN ; Protocol PRN Reason: BP MAINTENANCE (PER PROTOCOL) Stop: 04/15/18 15:03 Last Admin: 02/15/18 10:57 Dose: 30 mcg/min, 58.05 mls/hr Meropenem 500 mg/ Sodium (Chloride) 100 mls @ 100 mls/hr IV Q24H [facility] Stop: 04/15/18 19:59 Last Infusion: 02/14/18 21:32 Dose: Infused Phenylephrine HCl 50 mg/ (Sodium Chloride) 250 mls @ 0 mls/hr IV TITR [facility]; Protocol Stop: 04/15/18 16:44 Last Admin: 02/15/18 11:49 Dose: 180 mcg/min, 54 mls/hr Insulin Human Regular 100 (units/ Sodium Chloride) 101 mls @ 0 mls/hr IV TITR [facility]; Protocol Stop: 04/16/18 03:14 Sodium Bicarbonate 150 meq/ (Dextrose/Sodium Chloride) 1,150 mls @ 150 mls/hr IV .Q7H40M [facility] Stop: 04/15/18 18:59 Dopamine HCl/Dextrose (Dopamine) 400 mg in 250 mls @ 0 mls/hr IV TITR PRN; Protocol PRN Reason: BP MAINTENANCE (PER PROTOCOL) Stop: 04/15/18 20:18 Last Admin: 02/15/18 13:30 Dose: 30 mcg/kg/min, 90.831 mls/hr Albumin Human (Albutein 5%) 12.5 gm in 250 mls @ 62.5 mls/hr IV X1 ONE Stop: 02/15/18 14:20 Last Admin: 02/15/18 11:43 Dose: 62.5 mls/hr Dextrose/Sodium Chloride (D5-0.45ns) 1,000 mls @ 150 mls/hr IV .Q6H40M [facility] Stop: 04/16/18 11:30 Insulin Aspart (Novolog Insulin Sliding Scale) 0 units SUBQ ACHS [facility]; Protocol Stop: 04/15/18 16:29 Last Admin: 02/15/18 13:37 Dose: 12 units Lactulose (Cephulac) 30 gm PO TID [facility] Stop: 04/15/18 15:59 Last Admin: 02/15/18 09:00 Dose: Not Given Lorazepam (Ativan) 1 mg IVP Q4HR PRN; Protocol PRN Reason: Agitation Stop: 04/16/18 10:15 Methylprednisolone Sodium Succinate (Solu-Medrol) 40 mg IV Q6HR [facility] Stop: 02/19/18 22:59 Last Admin: 02/15/18 11:42 Dose: 40 mg Ondansetron HCl (Zofran) 4 mg IVP Q6H PRN PRN Reason: Nausea / Vomiting Stop: 04/15/18 15:46 Lab - Result Diagrams 02/15/18 05:00 02/15/18 05:00 still anuric LELE on max Levo, Edis, Dopa continue IVF pH now @ 7.2, on vent administer more HC03 awaiting for cultures On Merrem
[2018-02-15 14:27] LABS: pH 7.21 (7.35-7.45)
[2018-02-15 14:29] LABS: ALLEN TEST Positive
[2018-02-15] MEDS ORDERED: Sodium Bicarbonate 8.4% 50mEq PFS IVP ONE (14:30)
[2018-02-15] MEDS ORDERED: Mag Sulfate 2gm/50mL Premix 2 GM/50 ML BAG IV ONE (15:00)
[2018-02-15] MEDS ORDERED: Calcium Gluconate 2 GM in Sodium Chloride 0.9% 100 ML IV ONE (16:00)
[2018-02-15 16:50] LABS: HEMATOCRIT 25.5 % (41.0-60); HEMOGLOBIN 8.2 gm/dL (12-16)
[2018-02-15] MEDS: D5-0.45NS 1,000 ML IV SCH (18:09)
--- NOTE | 2018-02-15 18:32 | Progress Notes ---
DATE: 02/14/2018 SUBJECTIVE: The patient was seen and evaluated. The patient's chart reviewed. Dr. Roman covering for Dr. Ellis. Overnight nursing staff reporting that the patient has had 2 episodes of vomiting and pending medical evaluation. Today on [id number] evaluation, the patient reported he had some pain because he has vomited. He has been withdrawn, disengaged, and distraught. MENTAL STATUS EXAMINATION: Disengaged, withdrawn, distraught, minimally interactive secondary to the pain, and internally preoccupied. He does not give much more information beyond that. He continues to be internally preoccupied and also in pain. ASSESSMENT AND PLAN: The patient has a history of depression, but also comorbid dementia who continues to find himself internally preoccupied, but also with recent episodes of vomiting, which are pending medical evaluation with the recent adjustments. We will continue with primary psychiatrist's treatment plan and goals, which include Abilify 15 mg, Coreg, Cipro, lisinopril, metformin, Remeron 15 mg, and risperidone 3 mg at bedtime. It is unclear why the patient is on 2 different antipsychotics. We will continue exploring and allow the primary medical psychiatrist to continue adjusting the medications as he currently tolerated without complications. [facility]# [id number]
--- NOTE | 2018-02-15 19:51 | Infectious Disease Prog Note ---
Infectious Disease Subjective - Review of Systems Service Date: 02/15/18 Events since last encounter: He was intubated orally, and put on the ventilator support. No fever. Unresponsive. He was responding some what in the morning. but now, obtunded. Still on multiple vasopressors. Receiving IV insulin drip. Receiving solumedrol IV. IVF was cut down to 150 ml per hour. Subjective: Very unstable and toxic looking patient. no fever. Infectious Disease Objective - Results Result Diagrams: 02/15/18 16:40 02/15/18 05:00 Recent Labs: Laboratory Last Values WBC 14.0 Th/cmm (4.8-10.8) H D 02/15/18 05:00 RBC 3.49 Mil/cmm (3.80-5.80) L 02/15/18 05:00 Hgb 8.2 gm/dL (12-16) L 02/15/18 16:40 Hct 25.5 % (41.0-60) L 02/15/18 16:40 MCV 78.1 fl (80-99) L 02/15/18 05:00 MCH 25.3 pg (27.0-31.0) L 02/15/18 05:00 MCHC Differential 32.4 pg (28.0-36.0) 02/15/18 05:00 RDW 19.4 % (11.5-20.0) 02/15/18 05:00 Plt Count 227 Th/cmm (150-400) D 02/15/18 05:00 MPV 8.6 fl 02/15/18 05:00 Add Manual Diff YES 02/15/18 05:00 Neutrophils % 75.5 % (40.0-80.0) 02/14/18 15:50 Band Neutrophils % 9 % (0-10) 02/15/18 05:00 Lymphocytes % 22.9 % (20.0-50.0) 02/14/18 15:50 Monocytes % 1.2 % (2.0-10.0) L 02/14/18 15:50 Eosinophils % 0.4 % (0.0-5.0) 02/14/18 15:50 Basophils % 0.0 % (0.0-2.0) 02/14/18 15:50 Neutrophils (Manual) 86 % (40-80) H 02/15/18 05:00 Lymphocytes 4 % (20-50) L 02/15/18 05:00 Monocytes 1 % (2-10) L 02/15/18 05:00 Platelet Estimate ADEQUATE (NORMAL) 02/15/18 05:00 Poikilocytosis 2+ 02/15/18 05:00 Anisocytosis 1+ 02/15/18 05:00 Microcytosis 1+ 02/15/18 05:00 [place] Cells 2+ 02/15/18 05:00 RBC Morph Micro Appear ABNORMAL (NORMAL) 02/15/18 05:00 PT 16.2 SECONDS (9.5-11.5) H 02/15/18 05:00 INR 1.60 (0.5-1.4) H 02/15/18 05:00 Specimen Source Arterial 02/15/18 14:15 Sample Site Right Radial 02/15/18 14:15 pH 7.21 (7.35-7.45) L* 02/15/18 14:15 pCO2 38.0 mmHg (35.0-45.0) 02/15/18 14:15 pO2 82.0 mmHg (80.0-100.0) 02/15/18 14:15 HCO3 15.5 mEq/L (20.0-26.0) L 02/15/18 14:15 Base Excess -11.9 mEq/L (-3.0-3.0) L 02/15/18 14:15 O2 Saturation 93.0 % (92.0-100.0) 02/15/18 14:15 Garfield Test Positive 02/15/18 14:15 Vent Rate 18 02/15/18 14:15 Inspired O2 100 02/15/18 14:15 Tidal Volume 400 02/15/18 14:15 PEEP N/A 02/15/18 14:15 Pressure (ins/psv/peep) N/A 02/15/18 14:15 Critical Value DM 02/15/18 14:15 Sodium 134 mEq/L (136-145) L 02/15/18 05:00 Potassium 5.0 mEq/L (3.5-5.1) 02/15/18 05:00 Chloride 93 mEq/L (98-107) L 02/15/18 05:00 Carbon Dioxide 11.2 mEq/L (21.0-31.0) L 02/15/18 05:00 Anion Gap 34.8 (7.0-16.0) H 02/15/18 05:00 BUN 101 mg/dL (7-25) H* 02/15/18 05:00 Creatinine 9.0 mg/dL (0.7-1.3) H* 02/15/18 05:00 Est GFR ( Amer) TNP 02/15/18 05:00 Est GFR (Non-Af Amer) TNP 02/15/18 05:00 BUN/Creatinine Ratio 11.2 02/15/18 05:00 Glucose 393 mg/dL (70-105) H 02/15/18 16:40 POC Glucose 322 MG/DL (70 - 105) H 02/15/18 18:35 Whole Bld Lactic Acid 9.34 mmol/L (0.60-1.99) H* 02/15/18 07:25 Calcium 6.7 mg/dL (8.6-10.3) L 02/15/18 05:00 Phosphorus 11.0 mg/dL (2.5-5.0) H* 02/15/18 05:00 Magnesium 1.8 mg/dL (1.9-2.7) L 02/15/18 05:00 Total Bilirubin 0.3 mg/dL (0.3-1.0) 02/15/18 05:00 Direct Bilirubin 0.04 mg/dL (0.0-0.2) 02/15/18 05:00 AST 150 U/L (13-39) H 02/15/18 05:00 ALT 96 U/L (7-52) H 02/15/18 05:00 Alkaline Phosphatase 47 U/L (34-104) 02/15/18 05:00 Ammonia 151 umol/L (16-53) H 02/15/18 05:00 Total Protein 4.6 gm/dL (6.0-8.3) L 02/15/18 05:00 Albumin 2.6 gm/dL (4.2-5.5) L 02/15/18 05:00 Globulin 2.0 gm/dL 02/15/18 05:00 Albumin/Globulin Ratio 1.3 (1.0-1.8) 02/15/18 05:00 TSH 3.05 uIU/ml (0.34-5.60) 02/15/18 05:00 Urine Source POOLE PORT 02/14/18 18:35 Urine Color YELLOW 02/14/18 18:35 Urine Clarity CLOUDY (CLEAR) 02/14/18 18:35 Urine pH 6.0 (4.6 - 8.0) 02/14/18 18:35 Ur Specific [place] 1.025 (1.005-1.030) 02/14/18 18:35 Urine Protein >300 mg/dL (NEGATIVE) H 02/14/18 18:35 Urine Glucose (UA) 100 mg/dL (NEGATIVE) H 02/14/18 18:35 Urine Ketones 15 mg/dL (NEGATIVE) H 02/14/18 18:35 Urine Blood LARGE (NEGATIVE) H 02/14/18 18:35 Urine Nitrate NEGATIVE (NEGATIVE) 02/14/18 18:35 Urine Bilirubin NEGATIVE (NEGATIVE) 02/14/18 18:35 Urine Urobilinogen 0.2 E.U./dL (0.2 - 1.0) 02/14/18 18:35 Ur Leukocyte Esterase SMALL (NEGATIVE) H 02/14/18 18:35 Urine RBC 10-25 /hpf (0-5) H 02/14/18 18:35 Urine WBC 6-10 /hpf (0-5) 02/14/18 18:35 Ur Epithelial Cells FEW /lpf (FEW) 02/14/18 18:35 Urine Bacteria 1+ /hpf (NONE SEEN) H 02/14/18 18:35 - Physical Exam Vitals and I&O: Vital Signs Temp 97.6 F 02/15/18 16:00 Pulse 119 02/15/18 19:30 Resp 22 02/15/18 19:00 BP 121/48 02/15/18 19:30 Pulse Ox 97 02/15/18 19:08 Intake & Output 02/15/18 02/15/18 02/16/18 06:59 18:59 06:59 Intake Total 3.56 86 254.542 Balance 3.56 865 254.542 Intake: Intake, IV Amount 2353.56 254.542 DOPamine 400 mg In 250 ml 500 254.542 @ Per Protocol IV TITR PRN Rx#:[id number] Insulin Human Regular 100 5.05 units In Sodium Chloride 0.9% 100 ml @ 0 UNITS/HR IV TITR [facility] Rx#: [id number] Meropenem 500 mg In 100 Sodium Chloride 0.9% 100 ml @ 100 mls/hr IV Q24H [facility] Rx#:[id number] Norepinephrine 8 mg In 675.96 507.615 Dextrose 5% 250 ml @ 8 MCG/MIN 15.48 mls/hr IV TITR PRN Rx#:[id number] Phenylephrine HCl 50 mg 427.6 732.2 In Sodium Chloride 0.9% 250 ml @ 0 MCG/MIN IV TITR [facility] Rx#:[id number] Sodium Bicarbonate 8.4% 1150 150 meq In D5-0.9%Ns 1, 000 ml @ 150 mls/hr IV . Q7H40M COUNT INCLUDES THE [facility] Rx#:[id number] Active Medications: Current Medications Acetaminophen (Tylenol) 325 mg PO Q6H PRN PRN Reason: MILD PAIN/HEADACHE/TEMP > 101 Stop: 04/15/18 15:46 Albuterol/Ipratropium (Duoneb Neb) 3 ml HHN Q4HRT COUNT [facility]CLUDES THE [facility] Stop: 04/15/18 22:59 Last Admin: 02/15/18 19:06 Dose: 3 ml Budesonide (Pulmicort) 0.5 mg HHN BIDRT COUNT INCLUDES THE [facility] Stop: 04/16/18 06:59 Last Admin: 02/15/18 19:06 Dose: 0.5 mg Norepinephrine Bitartrate 8 mg (/ Dextrose) 258 mls @ 15.48 mls/hr IV TITR PRN ; Protocol PRN Reason: BP MAINTENANCE (PER PROTOCOL) Stop: 04/15/18 15:03 Last Admin: 02/15/18 15:41 Dose: 30 mcg/min, 58.05 mls/hr Meropenem 500 mg/ Sodium (Chloride) 100 mls @ 100 mls/hr IV Q24H COUNT INCLUDES THE [facility] Stop: 04/15/18 19:59 Last Infusion: 02/14/18 21:32 Dose: Infused Phenylephrine HCl 50 mg/ (Sodium Chloride) 250 mls @ 0 mls/hr IV TITR [facility]; Protocol Stop: 04/15/18 16:44 Last Admin: 02/15/18 16:49 Dose: 180 mcg/min, 54 mls/hr Insulin Human Regular 100 (units/ Sodium Chloride) 101 mls @ 0 mls/hr IV TITR [facility]; Protocol Stop: 04/16/18 03:14 Last Titration: 02/15/18 18:41 Dose: 4 units/hr, 4.04 mls/hr Dopamine HCl/Dextrose (Dopamine) 400 mg in 250 mls @ 0 mls/hr IV TITR PRN; Protocol PRN Reason: BP MAINTENANCE (PER PROTOCOL) Stop: 04/15/18 20:18 Last Titration: 02/15/18 19:24 Dose: 30 mcg/kg/min, 90.831 mls/hr Dextrose/Sodium Chloride (D5-0.45ns) 1,000 mls @ 150 mls/hr IV .Q6H40M [facility] Stop: 04/16/18 11:30 Last Admin: 02/15/18 18:09 Dose: 150 mls/hr Lactulose (Cephulac) 30 gm PO TID [facility] Stop: 04/15/18 15:59 Last Admin: 02/15/18 14:00 Dose: Not Given Lorazepam (Ativan) 1 mg IVP Q4HR PRN; Protocol PRN Reason: Agitation Stop: 04/16/18 10:15 Last Admin: 02/15/18 14:56 Dose: 1 mg Methylprednisolone Sodium Succinate (Solu-Medrol) 40 mg IV Q12HR [facility] Stop: 04/16/18 20:59 Ondansetron HCl (Zofran) 4 mg IVP Q6H PRN PRN Reason: Nausea / Vomiting Stop: 04/15/18 15:46 Pantoprazole Sodium (Protonix) 40 mg IVP BID COUNT INCLUDES THE [facility] Stop: 04/16/18 16:59 Last Admin: 02/15/18 17:59 Dose: 40 mg General: no acute distress, well developed, well nourished, other (Intubated orally, on the ventilator support.) HEENT: atraumatic, normocephalic, PERRLA, EOMI, other (dry cornea and conjuctiva. NGT suction revealed blood.) Neck: supple, other (resisting neckk flexion.), no thyromegaly, no lymphadenopathy Cardiovascular: S1S2, regular Lungs: clear to auscultation bilaterally, clear to percussion Abdomen: soft, no tender Extremities: no cyanosis, no clubbing, no edema Neurological: other (Unresponsive) Skin: intact Infectious Disease Assmt/Plan - Assessment Assessment: 1. Severe septic shock. Lactic acidosis. 2. UTI. 3. Acute kidney injury, dehydration. 4. Altered mental status, secondary to metabolic encephalopathy. Clinically, his signs does not support POSTPARTUM NURSE infection, but cannot be ruled out. His mentation does not improve in next one or two days, may consider LP. 5. Severe metabolic acidosis. 6. Respiratory failure. 7. Hypotension, multifactorial including dehydration, sepsis. 6. Diabetes mellitus type 2. 7. BPH. 8. Obesity. 9. Metabolic acidosis. 10. Psychosis. 11. Pneumonia. - Plan Plan: Will get Ct head, a/p and chest. but he is critically unstable and he cannot be moved out of the room. Antibiotic-reese, has received one gm Vanco IV yesterday (02/14/2018), and on meropenem. Add zithromax. follow sepsis w/u. Continue vasopressors and IVF. Continue solumedrol. If his mentation does not show improvement in next one or two days, will perform LP.
[2018-02-15] MEDS: Meropenem 500 MG in Sodium Chloride 0.9% 100 ML IV SCH (20:30)
--- NOTE | 2018-02-15 21:00 | Consultation ---
DATE OF CONSULTATION: 02/14/2018 PROBLEM LIST: 1. Acute septic shock. 2. Severe metabolic acidosis. 3. Altered level of consciousness. 4. Hypotension. The patient is currently treated, appears to be weak, opening the eyes to the verbal stimuli, no respiratory distress, etc. PHYSICAL EXAMINATION: VITAL SIGNS: Temperature earlier is 195/97.8, heart rate is 110-120, blood pressure is 97-118 systolic and currently the patient is on 40% of oxygen. HEENT: Examination of the head is essentially unremarkable. Pupils appear to be equal and reacting to light. Conjunctivae are pink. Sclerae are white. Ears externally appears to be okay. NECK: Veins not visualized. CHEST: Shows diminished air entry with occasional secretory noise. HEART: Tachycardic. ABDOMEN: Soft, nontender. EXTREMITIES: Shows no peripheral edema. LABORATORY DATA: White count is 14,000, hemoglobin 8.8. INR is 1.6. The patient's ABG shows pO2 is 82% on 100% of oxygen, pH of 7.21, bicarbonate is 11.9 and patient's electrolytes, creatinine 9, BUN is 101, and sugar is quite high in 600 range and phosphorus is 11 and the patient's chest x-ray this morning shows endotracheal in good position. There is perihilar congestion with obliteration of the left diaphragmatic silhouette. IMPRESSION: The patient has acute respiratory failure because of multiple factors: 1. Sepsis. 2. Diabetic mellitus. 3. Hyperglycemic. 4. Acute on chronic renal failure. PLANS AND SUGGESTIONS: Discussed with Dr. Nance continue current respiratory care, inhalation treatment, and we will await for the purdy culture, etc. We will repeat some of the studies tomorrow again. JOB# [id number]
[2018-02-15] MEDS: Azithromycin 500 MG in Sodium Chloride 0.9% 250 ML IV SCH (21:26)
[2018-02-15] MEDS ORDERED: NITROGLYCERIN OINT 2% 1 INCH PACKET TP ONE (22:30)
[2018-02-16] MEDS: Albuterol/Ipratropium Neb 3 ML AERS HHN SCH ×7 (00:05→23:01)
--- NOTE | 2018-02-16 02:05 | Consultation ---
DATE OF CONSULTATION: 02/15/[address] Nance. HISTORY OF PRESENT ILLNESS: This 72-year-old male patient who was admitted to psychiatric clinic for psychosis. The patient developed hypotension. Following this, the patient was intubated and transferred to ICU. At the present time, the patient is hypotensive, septic shock, and hence cardiac consult is requested. The patient also has upper GI bleed with NG tube. PAST MEDICAL HISTORY: Septic shock; upper gastrointestinal bleed with coffee-ground emesis; diabetes mellitus type 2, uncontrolled; insulin-dependent diabetes mellitus, on insulin drip; BPH; hypothyroid; dementia; psychosis; lactic acidosis; urinary tract infection; iron-deficiency anemia; acute renal failure secondary to diabetes. FAMILY HISTORY: Unremarkable. SOCIAL HISTORY: No history of smoking, alcohol abuse. ALLERGIES: None. PHYSICAL EXAMINATION: VITAL SIGNS: Blood pressure 90 systolic, on dopamine, Levophed, and Edis-Synephrine; pulse 100; and respiration on ventilator. HEAD: Normocephalic. No lumps or bumps. EYES: Pupils equal, reactive to light. Fundi show AV nicking, sclerae white, conjunctivae pink. NECK: Carotid 2+. Normal upstroke. JVD flat. Thyroid not palpable. Lymph nodes not palpable. CHEST: Shows increased AP diameter. No kyphosis, scoliosis. LUNGS: Bilateral wheezing, rhonchi, prolonged expiration. HEART: PMI fifth intercostal space with lateral to midclavicular line. S1, S2, S3, S4, supraventricular tachycardia. ABDOMEN: Soft. Liver, spleen not palpable. No organomegaly. Bowel sounds active. NEUROLOGIC: Unremarkable. EXTREMITIES: Peripheral pulses 2+. No pedal edema. CLINICAL IMPRESSION: Acute respiratory failure, on ventilator; septic shock; hypotension; upper gastrointestinal bleed; diabetes mellitus type 2, uncontrolled on insulin drip; chronic obstructive pulmonary disease; hypothyroid; dementia; psychosis; lactic acidosis; urinary tract infection; acute renal failure; and iron-deficiency anemia. PLAN: The patient to continue on dopamine, Edis-Synephrine, Levophed, IV antibiotics, vent management. Also we will give albumin. The patient's prognosis is guarded. [facility]# [id number]
[2018-02-16] MEDS: Phenylephrine HCl 50 MG in Sodium Chloride 0.9% 250 ML IV SCH ×5 (02:30→22:50)
[2018-02-16] MEDS: DOPamine 400 MG/250 ML BAG IV PRN ×4 (02:32→13:54)
[2018-02-16] MEDS ORDERED: Diltiazem 5 mg/mL 25mL Vial IV ONE (04:16)
[2018-02-16 04:22] LABS: HEMATOCRIT 26.5 % (41.0-60); HEMOGLOBIN 8.6 gm/dL (12-16); MEAN CELL VOLUME 76.8 fl (80-99); MEAN CORPUSCULAR HEMOGLOBIN 24.8 pg (27.0-31.0); MEAN CORPUSCULAR HGB CONC 32.3 pg (28.0-36.0); RED BLOOD COUNT 3.45 Mil/cmm (3.80-5.80); RED CELL DISTRIBUTION WIDTH 19.3 % (11.5-20.0); WHITE BLOOD COUNT 14.3 Th/cmm (4.8-10.8)
[2018-02-16 04:31] LABS: PLATELET COUNT 157 Th/cmm (150-400)
[2018-02-16 04:45] LABS: INR 1.5 (0.5-1.4); PROTHROMBIN TIME (TEST) 15.3 SECONDS (9.5-11.5)
[2018-02-16 04:52] LABS: BAND NEUTROPHILE 15 % (0-10); LYMPHOCYTE 4 % (20-50); MONOCYTE 1 % (2-10); NEUTROPHILS 80 % (40-80); PLATELET ESTIMATE ADEQUATE (NORMAL)
[2018-02-16 04:58] LABS: TROP I 2.81 ng/mL (0.01-0.05)
[2018-02-16 05:05] LABS: ALB/GLOB RATIO 1.4 (1.0-1.8); ALBUMIN 2.6 gm/dL (4.2-5.5); ALKALINE PHOSPHATASE 47 U/L (34-104); AMYLASE SERUM 233 U/L (29-103); ANION GAP 27.4 (7.0-16.0); BILIRUBIN,DIRECT 0.15 mg/dL (0.0-0.2); BILIRUBIN,TOTAL 0.4 mg/dL (0.3-1.0); CALCIUM SERUM 6.2 mg/dL (8.6-10.3); CARBON DIOXIDE 17.1 mEq/L (21.0-31.0); CHLORIDE 89 mEq/L (98-107); GLUCOSE 343 mg/dL (70-105); LIPASE 111 U/L (11-82); MAGNESIUM 1.8 mg/dL (1.9-2.7); PHOSPHOROUS 9.2 mg/dL (2.5-5.0); POTASSIUM SERUM 4.5 mEq/L (3.5-5.1); SGOT 134 U/L (13-39); SGPT/ALT 95 U/L (7-52); SODIUM SERUM 129 mEq/L (136-145); TOTAL PROTEIN,SERUM 4.4 gm/dL (6.0-8.3)
[2018-02-16 05:08] LABS: BUN - UREA NITROGEN 100 mg/dL (7-25); CREATININE - SERUM 9.5 mg/dL (0.7-1.3)
[2018-02-16] MEDS ORDERED: Norepinephrine 4 mg/4mL Vial IV ONE (05:21)
[2018-02-16] MEDS ORDERED: Sodium Bicarbonate 8.4% 50mEq PFS IVP ONE ×2 (06:08→06:24)
[2018-02-16] MEDS ORDERED: Mag Sulfate 2gm/50mL Premix 2 GM/50 ML BAG IV ONE (06:30)
[2018-02-16] MEDS: Budesonide 0.5 Mg/2 mL Ud HHN SCH ×2 (07:15→19:16)
[2018-02-16] MEDS: Mag Sulfate 2gm/50mL Premix 2 GM/50 ML BAG IV ONE ×2 (07:38→08:00)
[2018-02-16] MEDS: D5-0.45NS 1,000 ML IV SCH ×2 (07:59→14:40)
--- NOTE | 2018-02-16 08:15 | Diagnostic Imaging Report ---
Portable chest x-ray HISTORY: Increased shortness of breath Compared with prior exam of February 15, 2018, increasing infiltrate noted in the right perihilar and right lower lobe regions. Endotracheal tube tip is approximately 4.0 cm above the leticia. IMPRESSION: 1. Increasing infiltrate within the right lung. Findings consistent with pneumonia.
--- NOTE | 2018-02-16 08:25 | Diagnostic Imaging Report ---
Abdominal ultrasound HISTORY: Pain, trauma The liver exhibits homogeneous parenchyma. No focal lesions. The gallbladder appears normal. No calculi are seen. No biliary dilatation. The pancreas cannot be seen due to bowel gas. The kidneys appear normal bilaterally. No other retroperitoneal or intra-abdominal abnormalities. Findings suggesting small right pleural effusion are suggested. IMPRESSION: 1. No intra-abdominal abnormalities 2. Suggestion of a small right pleural effusion
[2018-02-16 08:39] LABS: ALLEN TEST Positive; pH 7.25 (7.35-7.45)
[2018-02-16] MEDS: methylPREDNISolone SS 40 mg Vial IV SCH ×2 (08:47→20:51)
--- NOTE | 2018-02-16 08:58 | Progress Notes ---
DATE: IDENTIFICATION: A 72-year-old male. SUBJECTIVE: The patient seen and examined in ICU bed 6. The patient is currently intubated and sedated. I did see this patient yesterday after the patient was rushed into the ICU from [facility]. An immediate resuscitation was initiated by me as well as nurses. Subsequently, the patient's respiratory and cardiac status deteriorated and end up on ventilator. The patient's blood sugars are elevated and the patient is currently on insulin drip as well. The patient is now noted to have coffee-ground hemorrhagic secretions from his NG tube. The patient is currently on 3 pressure agent and his blood pressure is now about above 100. The patient's nurse is at bedside. PHYSICAL EXAMINATION: VITAL SIGNS: Temperature is 97.8, pulse is 120, respiratory rate is 24, blood pressure 118/45. HEENT: Oral endotracheal tube noted. 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 NECK: Supple, no JVD. HEART: Regular. LUNGS: Has expiratory wheezing throughout. ABDOMEN: Soft. Bowel sounds are present. Suprapubic catheter noted. EXTREMITIES: +1 edema noted. AVAILABLE DIAGNOSTIC DATA: Which includes white count of 14,000; hemoglobin 8.8; platelet count of 227. Recent ABG: pH of 7.21, pCO2 of 38, pO2 of 82, BUN and creatinine of 101 and 9, bicarbonate of 11.2, sodium 134, potassium 5. Blood sugars has been reviewed, ranging from 500-465. Lactic acid has dropped from 12.8-9.34. Phosphorus is reported 11. Magnesium 1.8. AST, ALT is 150 and 96. The patient's urine does reveal large amount of blood more than 30, 300 protein, ketones were positive, small leukocyte esterase positive, rbcs 10-25, bacteria was +1. CLINICAL IMPRESSION: 1. Acute respiratory failure, required endotracheal intubation and mechanical ventilation. 2. Acute kidney injury secondary to acute tubular necrosis. 3. Septic shock. 4. Upper gastrointestinal bleed now. 5. Severe metabolic acidosis, anion gap. 6. Uncontrolled diabetes mellitus. 7. Electrolyte imbalance. 8. Elevated ammonia level. PLAN: 1. The patient is currently intubated to ICU. The patient is to have vent support. 2. Nebulizer treatment 3. IV antibiotic. 4. Await for blood cultures. 5. Correct electrolytes. 6. Insulin drip. 7. Proton-pump inhibitor. 8. Nebulizer treatment. 9. ICU care. 10. Insulin drip. 11. Follow lab. 12. Follow consult recommendation. 13. Overall, prognosis is guarded. 14. Care plan reviewed and discussed. JOB# [id number]
[2018-02-16] MEDS: Lactulose 10 Gm/15 mL 30mL UDC PO SCH ×3 (09:00→20:52)
--- NOTE | 2018-02-16 11:30 | Consultation ---
DATE OF CONSULTATION: PSYCHIATRY CONSULTATION NOTE Covering for Dr. Mary. IDENTIFYING DATA: A 72-year-old male. CHIEF COMPLAINT: Intubated. HISTORY OF PRESENT ILLNESS: A 72-year-old male who was initially brought in here from a [facility], has been following for medical management. He had not been eating for the past 48 hours, but very lethargic with low blood pressure. The patient was transferred to ICU. Today on [id number] evaluation, the patient was intubated, minimally interactive. PAST MEDICAL HISTORY: Diabetes, BPH, hypertension, hypothyroidism, and history of dementia. CURRENT MEDICATIONS: Reviewed which includes Abilify, Lipitor, atropine, Coreg, Cipro, iron sulfate, normal insulin, probiotic, levothyroxine, lisinopril, Ativan as needed, Remeron, Protonix, and risperidone. ALLERGIES TO MEDICATIONS: PROTONIX. SOCIAL HISTORY: Currently in a care home. No history of smoking, alcohol, or drug use. FAMILY HISTORY: Unavailable. MENTAL STATUS EXAMINATION: Limited historian. The patient is intubated. ASSESSMENT AND PLAN: The patient is a 72-year-old with severe septic shock, severe metabolic acidosis, decreased cardiac function, causing him to have hypertension. The patient has been psychiatrically treated under the care of Dr. Mary from [facility] and transitioned yesterday after decline. He is on 2 different antipsychotics at this point that he currently is in the ICU. We will discontinue the antipsychotics at this point as it is inconsistent that the psychiatric medications were causing the decline, but it is a good time to wash-out the period of antipsychotics to further stabilize medically and then reinitiate further. Recommend to continue following up with primary psychiatrist as he continues to seek intensive care medically. PRIMARY DIAGNOSIS: History of unspecified mood disorder. SECONDARY DIAGNOSIS: None. MEDICAL DIAGNOSIS: As noted above. PLAN: 1. No criteria met for 5150. 2. I agree with the discontinuation of the Abilify and the risperidone at this time. 3. We will continue to follow alongside and to continue monitoring once the patient is further medically stable and reassess the patient psychiatrically and reassess the reinitiation of medications once he is medically cleared. [facility]# [id number]
[2018-02-16] MEDS ORDERED: Probiotic Screen MC PRN (12:28)
[2018-02-16 13:10] LABS: T3 FREE 0.8 pg/mL (2.0-4.4); T4 FREE 0.39 ng/dL (0.82-1.77)
--- NOTE | 2018-02-16 13:42 | Infectious Disease Prog Note ---
Infectious Disease Subjective - Review of Systems Service Date: 02/16/18 Subjective: Very unstable and toxic looking patient. no fever. Intubated orally on FiO2's is controlled Infectious Disease Objective - Results Result Diagrams: 02/16/18 04:05 02/16/18 04:05 Recent Labs: Laboratory Last Values WBC 14.3 Th/cmm (4.8-10.8) H 02/16/18 04:05 RBC 3.45 Mil/cmm (3.80-5.80) L 02/16/18 04:05 Hgb 8.6 gm/dL (12-16) L 02/16/18 04:05 Hct 26.5 % (41.0-60) L 02/16/18 04:05 MCV 76.8 fl (80-99) L 02/16/18 04:05 MCH 24.8 pg (27.0-31.0) L 02/16/18 04:05 MCHC Differential 32.3 pg (28.0-36.0) 02/16/18 04:05 RDW 19.3 % (11.5-20.0) 02/16/18 04:05 Plt Count 157 Th/cmm (150-400) D 02/16/18 04:05 MPV 8.0 fl 02/16/18 04:05 Add Manual Diff YES 02/16/18 04:05 Neutrophils % 75.5 % (40.0-80.0) 02/14/18 15:50 Band Neutrophils % 15 % (0-10) H 02/16/18 04:05 Lymphocytes % 22.9 % (20.0-50.0) 02/14/18 15:50 Monocytes % 1.2 % (2.0-10.0) L 02/14/18 15:50 Eosinophils % 0.4 % (0.0-5.0) 02/14/18 15:50 Basophils % 0.0 % (0.0-2.0) 02/14/18 15:50 Neutrophils (Manual) 80 % (40-80) 02/16/18 04:05 Lymphocytes 4 % (20-50) L 02/16/18 04:05 Monocytes 1 % (2-10) L 02/16/18 04:05 Platelet Estimate ADEQUATE (NORMAL) 02/16/18 04:05 Poikilocytosis 2+ 02/15/18 05:00 Anisocytosis 1+ 02/15/18 05:00 Microcytosis 1+ 02/15/18 05:00 Rigo Cells 2+ 02/15/18 05:00 RBC Morph Micro Appear ABNORMAL (NORMAL) 02/15/18 05:00 PT 15.3 SECONDS (9.5-11.5) H 02/16/18 04:05 INR 1.50 (0.5-1.4) H 02/16/18 04:05 PTT (Actin FS) 37.6 SECONDS (26.0-38.0) 02/16/18 04:05 Specimen Source Arterial 02/16/18 08:12 Sample Site Right Radial 02/16/18 08:12 pH 7.25 (7.35-7.45) L 02/16/18 08:12 pCO2 40.0 mmHg (35.0-45.0) 02/16/18 08:12 pO2 90.0 mmHg (80.0-100.0) 02/16/18 08:12 HCO3 17.7 mEq/L (20.0-26.0) L 02/16/18 08:12 Base Excess -9.2 mEq/L (-3.0-3.0) L 02/16/18 08:12 O2 Saturation 95.0 % (92.0-100.0) 02/16/18 08:12 Garfield Test Positive 02/16/18 08:12 Vent Rate 18 02/16/18 08:12 Inspired O2 100 02/16/18 08:12 Tidal Volume 400 02/16/18 08:12 PEEP 5 02/16/18 08:12 Pressure (ins/psv/peep) N/A 02/16/18 08:12 Critical Value DM 02/16/18 08:12 Sodium 129 mEq/L (136-145) L 02/16/18 04:05 Potassium 4.5 mEq/L (3.5-5.1) 02/16/18 04:05 Chloride 89 mEq/L (98-107) L 02/16/18 04:05 Carbon Dioxide 17.1 mEq/L (21.0-31.0) L 02/16/18 04:05 Anion Gap 27.4 (7.0-16.0) H 02/16/18 04:05 BUN 100 mg/dL (7-25) H* 02/16/18 04:05 Creatinine 9.5 mg/dL (0.7-1.3) H* 02/16/18 04:05 Est GFR ( Amer) TNP 02/16/18 04:05 Est GFR (Non-Af Amer) TNP 02/16/18 04:05 BUN/Creatinine Ratio 10.5 02/16/18 04:05 Glucose 343 mg/dL (70-105) H 02/16/18 04:05 POC Glucose 331 MG/DL (70 - 105) H 02/16/18 13:00 Whole Bld Lactic Acid 5.80 mmol/L (0.60-1.99) H* 02/16/18 07:30 Calcium 6.2 mg/dL (8.6-10.3) L 02/16/18 04:05 Phosphorus 9.2 mg/dL (2.5-5.0) H* 02/16/18 04:05 Magnesium 1.8 mg/dL (1.9-2.7) L 02/16/18 04:05 Total Bilirubin 0.4 mg/dL (0.3-1.0) 02/16/18 04:05 Direct Bilirubin 0.15 mg/dL (0.0-0.2) 02/16/18 04:05 AST 134 U/L (13-39) H 02/16/18 04:05 ALT 95 U/L (7-52) H 02/16/18 04:05 Alkaline Phosphatase 47 U/L (34-104) 02/16/18 04:05 Ammonia 56 umol/L (16-53) H 02/16/18 04:05 Troponin I 2.81 ng/mL (0.01-0.05) H* D 02/16/18 04:05 B-Natriuretic Peptide 748.0 pg/mL (5.0-100.0) H 02/16/18 04:05 Total Protein 4.4 gm/dL (6.0-8.3) L 02/16/18 04:05 Albumin 2.6 gm/dL (4.2-5.5) L 02/16/18 04:05 Globulin 1.8 gm/dL 02/16/18 04:05 Albumin/Globulin Ratio 1.4 (1.0-1.8) 02/16/18 04:05 Amylase 233 U/L (29-103) H 02/16/18 04:05 Lipase 111 U/L (11-82) H 02/16/18 04:05 Free T4 0.39 ng/dL (0.82-1.77) L 02/15/18 05:00 Free T3 0.8 pg/mL (2.0-4.4) L 02/15/18 05:00 TSH 3.05 uIU/ml (0.34-5.60) 02/15/18 05:00 Urine Source POOLE PORT 02/14/18 18:35 Urine Color YELLOW 02/14/18 18:35 Urine Clarity CLOUDY (CLEAR) 02/14/18 18:35 Urine pH 6.0 (4.6 - 8.0) 02/14/18 18:35 Ur Specific [place] 1.025 (1.005-1.030) 02/14/18 18:35 Urine Protein >300 mg/dL (NEGATIVE) H 02/14/18 18:35 Urine Glucose (UA) 100 mg/dL (NEGATIVE) H 02/14/18 18:35 Urine Ketones 15 mg/dL (NEGATIVE) H 02/14/18 18:35 Urine Blood LARGE (NEGATIVE) H 02/14/18 18:35 Urine Nitrate NEGATIVE (NEGATIVE) 02/14/18 18:35 Urine Bilirubin NEGATIVE (NEGATIVE) 02/14/18 18:35 Urine Urobilinogen 0.2 E.U./dL (0.2 - 1.0) 02/14/18 18:35 Ur Leukocyte Esterase SMALL (NEGATIVE) H 02/14/18 18:35 Urine RBC 10-25 /hpf (0-5) H 02/14/18 18:35 Urine WBC 6-10 /hpf (0-5) 02/14/18 18:35 Ur Epithelial Cells FEW /lpf (FEW) 02/14/18 18:35 Urine Bacteria 1+ /hpf (NONE SEEN) H 02/14/18 18:35 Random Vancomycin 12.4 ug/mL (5.0-40.0) 02/16/18 04:05 - Physical Exam Vitals and I&O: Vital Signs Temp 97.3 F 02/16/18 12:00 Pulse 100 09/17/18 13:21 Resp 24 02/16/18 12:00 BP 112/40 02/16/18 12:39 Pulse Ox 94 02/16/18 13:21 Intake & Output 02/15/18 02/16/18 02/16/18 18:59 06:59 18:59 Intake Total 0327.136 7698.817 1202.346 Output Total 425 Balance 9442.638 1979.817 1202.346 Weight (lbs) 90.718 kg Intake: Intake, IV Amount 9931.105 1826.817 1202.346 Azithromycin 500 mg In 250 Sodium Chloride 0.9% 250 ml @ 250 mls/hr IV Q24HR [facility] Rx#:[id number] D5-0.45NS 1,000 ml @ 150 1000 mls/hr IV .Q6H40M [facility] Rx# :[id number] DOPamine 400 mg In 250 ml 500 1000.000 403.279 @ Per Protocol IV TITR PRN Rx#:[id number] Insulin Human Regular 100 5.05 46.404 22.995 units In Sodium Chloride 0.9% 100 ml @ 0 UNITS/HR IV TITR [facility] Rx#: [id number] Mag Sulfate 2gm/50mL 50 Premix 2 gm In 50 ml @ 25 mls/hr IV X1 ONE Rx#: [id number] Meropenem 500 mg In 100 Sodium Chloride 0.9% 100 ml @ 100 mls/hr IV Q24H [facility] Rx#:[id number] Norepinephrine 8 mg In 507.615 801.413 226.072 Dextrose 5% 250 ml @ 8 MCG/MIN 15.48 mls/hr IV TITR PRN Rx#:[id number] Phenylephrine HCl 50 mg 732.2 500 500 In Sodium Chloride 0.9% 250 ml @ 0 MCG/MIN IV TITR [facility] Rx#:[id number] Oral 0 Other 1700 Output: Gastric Drainage 200 Urine 225 Other: # Bowel Movements 0 Weight Source Bedscale Active Medications: Current Medications Acetaminophen (Tylenol) 325 mg PO Q6H PRN PRN Reason: MILD PAIN/HEADACHE/TEMP > 101 Stop: 04/15/18 15:46 Albuterol/Ipratropium (Duoneb Neb) 3 ml HHN Q4HRT [facility] Stop: 04/15/18 22:59 Last Admin: 02/16/18 10:45 Dose: 3 ml Budesonide (Pulmicort) 0.5 mg HHN BIDRT [facility] Stop: 04/16/18 06:59 Last Admin: 02/16/18 07:15 Dose: 0.5 mg Norepinephrine Bitartrate 8 mg (/ Dextrose) 258 mls @ 15.48 mls/hr IV TITR PRN ; Protocol PRN Reason: BP MAINTENANCE (PER PROTOCOL) Stop: 04/15/18 15:03 Last Admin: 02/16/18 10:28 Dose: 30 mcg/min, 58.05 mls/hr Meropenem 500 mg/ Sodium (Chloride) 100 mls @ 100 mls/hr IV Q24H [facility] Stop: 04/15/18 19:59 Last Infusion: 02/15/18 21:30 Dose: Infused Phenylephrine HCl 50 mg/ (Sodium Chloride) 250 mls @ 0 mls/hr IV TITR [facility]; Protocol Stop: 04/15/18 16:44 Last Admin: 02/16/18 12:43 Dose: 180 mcg/min, 54 mls/hr Insulin Human Regular 100 (units/ Sodium Chloride) 101 mls @ 0 mls/hr IV TITR [facility]; Protocol Stop: 04/16/18 03:14 Last Titration: 02/16/18 13:02 Dose: 4 units/hr, 4.04 mls/hr Dopamine HCl/Dextrose (Dopamine) 400 mg in 250 mls @ 0 mls/hr IV TITR PRN; Protocol PRN Reason: BP MAINTENANCE (PER PROTOCOL) Stop: 04/15/18 20:18 Last Titration: 02/16/18 12:00 Dose: 20 mcg/kg/min, 60.554 mls/hr Dextrose/Sodium Chloride (D5-0.45ns) 1,000 mls @ 150 mls/hr IV .Q6H40M [facility] Stop: 04/16/18 11:30 Last Admin: 02/16/18 07:59 Dose: 150 mls/hr Azithromycin 500 mg/ Sodium (Chloride) 250 mls @ 250 mls/hr IV Q24HR [facility] Stop: 04/16/18 20:59 Last Infusion: 02/15/18 22:26 Dose: Infused Diltiazem HCl 125 mg/ Dextrose 125 mls @ 10 mls/hr IV TITR [facility]; Protocol Stop: 04/17/18 09:14 Lactulose (Cephulac) 30 gm PO TID [facility] Stop: 04/15/18 15:59 Last Admin: 02/16/18 09:00 Dose: Not Given Lorazepam (Ativan) 1 mg IVP Q4HR PRN; Protocol PRN Reason: Agitation Stop: 04/16/18 10:15 Last Admin: 02/15/18 14:56 Dose: 1 mg Methylprednisolone Sodium Succinate (Solu-Medrol) 40 mg IV Q12HR [facility] Stop: 04/16/18 20:59 Last Admin: 02/16/18 08:47 Dose: 40 mg Miscellaneous (Probiotic Screen) 1 ea MC PRN PRN PRN Reason: PROTOCOL Stop: 04/17/18 12:27 Ondansetron HCl (Zofran) 4 mg IVP Q6H PRN PRN Reason: Nausea / Vomiting Stop: 04/15/18 15:46 Pantoprazole Sodium (Protonix) 40 mg IVP BID [facility] Stop: 04/16/18 16:59 Last Admin: 02/16/18 08:47 Dose: 40 mg General: no acute distress, well developed, well nourished, other (obtunded) HEENT: atraumatic, normocephalic, PERRLA, EOMI Neck: supple, no thyromegaly Cardiovascular: S1S2, regular Lungs: clear to auscultation bilaterally, clear to percussion Abdomen: soft, no tender, no distended Extremities: other (suprapubic catheter draining clear urine.), no cyanosis, no clubbing, no edema Neurological: other (obrunded.) Skin: intact - Procedures Procedures: Procedures Procedure Code Date RESPIRATORY VENTILATION, LESS THAN 24 CONSECUTIVE HOURS [id number] 02/14/18 Infectious Disease Assmt/Plan - Assessment Assessment: 1. Severe septic shock. Lactic acidosis. 2. UTI. 3. Acute kidney injury, dehydration. 4. Altered mental status, secondary to metabolic encephalopathy. Clinically, his signs does not support [employer] infection, but cannot be ruled out. His mentation does not improve in next one or two days, may consider LP. 5. Severe metabolic acidosis. 6. Respiratory failure. 7. Hypotension, multifactorial including dehydration, sepsis. 6. Diabetes mellitus type 2. 7. BPH. 8. Obesity. 9. Metabolic acidosis. 10. Psychosis. 11. Pneumonia. - Plan Plan: Will get Ct head, a/p and chest. but he is critically unstable and he cannot be moved out of the room. Antibiotic-reese, has received one gm Vanco IV yesterday (02/14/2018), and on meropenem. Add zithromax. follow sepsis w/u. Continue vasopressors and IVF. Continue solumedrol. If his mentation does not show improvement in next one or two days, will perform LP.
--- NOTE | 2018-02-16 14:37 | General Progress Note ---
Subjective - Review of Systems Service Date: 02/16/18 Subjective: comatose, on vent Objective - Results Result Diagrams: 02/16/18 04:05 02/16/18 04:05 Recent Labs: Laboratory Last Values WBC 14.3 Th/cmm (4.8-10.8) H 02/16/18 04:05 RBC 3.45 Mil/cmm (3.80-5.80) L 02/16/18 04:05 Hgb 8.6 gm/dL (12-16) L 02/16/18 04:05 Hct 26.5 % (41.0-60) L 02/16/18 04:05 MCV 76.8 fl (80-99) L 02/16/18 04:05 MCH 24.8 pg (27.0-31.0) L 02/16/18 04:05 MCHC Differential 32.3 pg (28.0-36.0) 02/16/18 04:05 RDW 19.3 % (11.5-20.0) 02/16/18 04:05 Plt Count 157 Th/cmm (150-400) D 02/16/18 04:05 MPV 8.0 fl 02/16/18 04:05 Add Manual Diff YES 02/16/18 04:05 Neutrophils % 75.5 % (40.0-80.0) 02/14/18 15:50 Band Neutrophils % 15 % (0-10) H 02/16/18 04:05 Lymphocytes % 22.9 % (20.0-50.0) 02/14/18 15:50 Monocytes % 1.2 % (2.0-10.0) L 02/14/18 15:50 Eosinophils % 0.4 % (0.0-5.0) 02/14/18 15:50 Basophils % 0.0 % (0.0-2.0) 02/14/18 15:50 Neutrophils (Manual) 80 % (40-80) 02/16/18 04:05 Lymphocytes 4 % (20-50) L 02/16/18 04:05 Monocytes 1 % (2-10) L 02/16/18 04:05 Platelet Estimate ADEQUATE (NORMAL) 02/16/18 04:05 Poikilocytosis 2+ 02/15/18 05:00 Anisocytosis 1+ 02/15/18 05:00 Microcytosis 1+ 02/15/18 05:00 [place] Cells 2+ 02/15/18 05:00 RBC Morph Micro Appear ABNORMAL (NORMAL) 02/15/18 05:00 PT 15.3 SECONDS (9.5-11.5) H 02/16/18 04:05 INR 1.50 (0.5-1.4) H 02/16/18 04:05 PTT (Actin FS) 37.6 SECONDS (26.0-38.0) 02/16/18 04:05 Specimen Source Arterial 02/16/18 08:12 Sample Site Right Radial 02/16/18 08:12 pH 7.25 (7.35-7.45) L 02/16/18 08:12 pCO2 40.0 mmHg (35.0-45.0) 02/16/18 08:12 pO2 90.0 mmHg (80.0-100.0) 02/16/18 08:12 HCO3 17.7 mEq/L (20.0-26.0) L 02/16/18 08:12 Base Excess -9.2 mEq/L (-3.0-3.0) L 02/16/18 08:12 O2 Saturation 95.0 % (92.0-100.0) 02/16/18 08:12 [place]field Test Positive 02/16/18 08:12 Vent Rate 18 02/16/18 08:12 Inspired O2 100 02/16/18 08:12 Tidal Volume 400 02/16/18 08:12 PEEP 5 02/16/18 08:12 Pressure (ins/psv/peep) N/A 02/16/18 08:12 Critical Value DM 02/16/18 08:12 Sodium 129 mEq/L (136-145) L 02/16/18 04:05 Potassium 4.5 mEq/L (3.5-5.1) 02/16/18 04:05 Chloride 89 mEq/L (98-107) L 02/16/18 04:05 Carbon Dioxide 17.1 mEq/L (21.0-31.0) L 02/16/18 04:05 Anion Gap 27.4 (7.0-16.0) H 02/16/18 04:05 BUN 100 mg/dL (7-25) H* 02/16/18 04:05 Creatinine 9.5 mg/dL (0.7-1.3) H* 02/16/18 04:05 Est GFR ( Amer) TNP 02/16/18 04:05 Est GFR (Non-Af Amer) TNP 02/16/18 04:05 BUN/Creatinine Ratio 10.5 02/16/18 04:05 Glucose 343 mg/dL (70-105) H 02/16/18 04:05 POC Glucose 328 MG/DL (70 - 105) H 02/16/18 14:11 Whole Bld Lactic Acid 5.80 mmol/L (0.60-1.99) H* 02/16/18 07:30 Calcium 6.2 mg/dL (8.6-10.3) L 02/16/18 04:05 Phosphorus 9.2 mg/dL (2.5-5.0) H* 02/16/18 04:05 Magnesium 1.8 mg/dL (1.9-2.7) L 02/16/18 04:05 Total Bilirubin 0.4 mg/dL (0.3-1.0) 02/16/18 04:05 Direct Bilirubin 0.15 mg/dL (0.0-0.2) 02/16/18 04:05 AST 134 U/L (13-39) H 02/16/18 04:05 ALT 95 U/L (7-52) H 02/16/18 04:05 Alkaline Phosphatase 47 U/L (34-104) 02/16/18 04:05 Ammonia 56 umol/L (16-53) H 02/16/18 04:05 Troponin I 2.81 ng/mL (0.01-0.05) H* D 02/16/18 04:05 B-Natriuretic Peptide 748.0 pg/mL (5.0-100.0) H 02/16/18 04:05 Total Protein 4.4 gm/dL (6.0-8.3) L 02/16/18 04:05 Albumin 2.6 gm/dL (4.2-5.5) L 02/16/18 04:05 Globulin 1.8 gm/dL 02/16/18 04:05 Albumin/Globulin Ratio 1.4 (1.0-1.8) 02/16/18 04:05 Amylase 233 U/L (29-103) H 02/16/18 04:05 Lipase 111 U/L (11-82) H 02/16/18 04:05 Free T4 0.39 ng/dL (0.82-1.77) L 02/15/18 05:00 Free T3 0.8 pg/mL (2.0-4.4) L 02/15/18 05:00 TSH 3.05 uIU/ml (0.34-5.60) 02/15/18 05:00 Urine Source POOLE PORT 02/14/18 18:35 Urine Color YELLOW 02/14/18 18:35 Urine Clarity CLOUDY (CLEAR) 02/14/18 18:35 Urine pH 6.0 (4.6 - 8.0) 02/14/18 18:35 Ur Specific [place] 1.025 (1.005-1.030) 02/14/18 18:35 Urine Protein >300 mg/dL (NEGATIVE) H 02/14/18 18:35 Urine Glucose (UA) 100 mg/dL (NEGATIVE) H 02/14/18 18:35 Urine Ketones 15 mg/dL (NEGATIVE) H 02/14/18 18:35 Urine Blood LARGE (NEGATIVE) H 02/14/18 18:35 Urine Nitrate NEGATIVE (NEGATIVE) 02/14/18 18:35 Urine Bilirubin NEGATIVE (NEGATIVE) 02/14/18 18:35 Urine Urobilinogen 0.2 E.U./dL (0.2 - 1.0) 02/14/18 18:35 Ur Leukocyte Esterase SMALL (NEGATIVE) H 02/14/18 18:35 Urine RBC 10-25 /hpf (0-5) H 02/14/18 18:35 Urine WBC 6-10 /hpf (0-5) 02/14/18 18:35 Ur Epithelial Cells FEW /lpf (FEW) 02/14/18 18:35 Urine Bacteria 1+ /hpf (NONE SEEN) H 02/14/18 18:35 Random Vancomycin 12.4 ug/mL (5.0-40.0) 02/16/18 04:05 - Physical Exam Vitals and I&O: Vital Signs Temp 97.3 F 02/16/18 12:00 Pulse 101 02/16/18 14:24 Resp 30 02/16/18 14:00 BP 127/41 02/16/18 14:08 Pulse Ox 93 02/16/18 14:24 Intake & Output 02/15/18 02/16/18 02/16/18 18:59 06:59 18:59 Intake Total 3379.686 8743.817 1308.255 Output Total 425 Balance 7569.538 1259.817 1308.255 Weight (lbs) 90.718 kg Intake: Intake, IV Amount 4276.647 6765.817 1308.255 Azithromycin 500 mg In 250 Sodium Chloride 0.9% 250 ml @ 250 mls/hr IV Q24HR ON LICENSE OF [facility] Rx#:[id number] D5-0.45NS 1,000 ml @ 150 1000 mls/hr IV .Q6H40M ON LICENSE OF [facility] Rx# :[id number] DOPamine 400 mg In 250 ml 500 1000.000 504.542 @ Per Protocol IV TITR PRN Rx#:[id number] Insulin Human Regular 100 5.05 46.404 27.641 units In Sodium Chloride 0.9% 100 ml @ 0 UNITS/HR IV TITR ON LICENSE OF [facility] Rx#: [id number] Mag Sulfate 2gm/50mL 50 Premix 2 gm In 50 ml @ 25 mls/hr IV X1 ONE Rx#: [id number] Meropenem 500 mg In 100 Sodium Chloride 0.9% 100 ml @ 100 mls/hr IV Q24H ON LICENSE OF [facility] Rx#:[id number] Norepinephrine 8 mg In 507.615 801.413 226.072 Dextrose 5% 250 ml @ 8 MCG/MIN 15.48 mls/hr IV TITR PRN Rx#:[id number] Phenylephrine HCl 50 mg 732.2 500 500 In Sodium Chloride 0.9% 250 ml @ 0 MCG/MIN IV TITR ON LICENSE OF [facility] Rx#:[id number] Oral 0 Other 1700 Output: Gastric Drainage 200 Urine 225 Other: # Bowel Movements 0 Weight Source Bedscale Active Medications: Current Medications Acetaminophen (Tylenol) 325 mg PO Q6H PRN PRN Reason: MILD PAIN/HEADACHE/TEMP > 101 Stop: 04/15/18 15:46 Albuterol/Ipratropium (Duoneb Neb) 3 ml HHN Q4HRT ON LICENSE OF [facility] Stop: 04/15/18 22:59 Last Admin: 02/16/18 14:24 Dose: 3 ml Budesonide (Pulmicort) 0.5 mg HHN BIDRT ON LICENSE OF [facility] Stop: 04/16/18 06:59 Last Admin: 02/16/18 07:15 Dose: 0.5 mg Norepinephrine Bitartrate 8 mg (/ Dextrose) 258 mls @ 15.48 mls/hr IV TITR PRN ; Protocol PRN Reason: BP MAINTENANCE (PER PROTOCOL) Stop: 04/15/18 15:03 Last Admin: 02/16/18 10:28 Dose: 30 mcg/min, 58.05 mls/hr Meropenem 500 mg/ Sodium (Chloride) 100 mls @ 100 mls/hr IV Q24H STACEY Stop: 04/15/18 19:59 Last Infusion: 02/15/18 21:30 Dose: Infused Phenylephrine HCl 50 mg/ (Sodium Chloride) 250 mls @ 0 mls/hr IV TITR STACEY; Protocol Stop: 04/15/18 16:44 Last Admin: 02/16/18 12:43 Dose: 180 mcg/min, 54 mls/hr Insulin Human Regular 100 (units/ Sodium Chloride) 101 mls @ 0 mls/hr IV TITR STACEY; Protocol Stop: 04/16/18 03:14 Last Titration: 02/16/18 14:11 Dose: 4 units/hr, 4.04 mls/hr Dopamine HCl/Dextrose (Dopamine) 400 mg in 250 mls @ 0 mls/hr IV TITR PRN; Protocol PRN Reason: BP MAINTENANCE (PER PROTOCOL) Stop: 04/15/18 20:18 Last Titration: 02/16/18 14:00 Dose: 12.5 mcg/kg/min, 37.846 mls/hr Dextrose/Sodium Chloride (D5-0.45ns) 1,000 mls @ 150 mls/hr IV .Q6H40M ON LICENSE OF [facility] Stop: 04/16/18 11:30 Last Admin: 02/16/18 07:59 Dose: 150 mls/hr Azithromycin 500 mg/ Sodium (Chloride) 250 mls @ 250 mls/hr IV Q24HR STACEY Stop: 04/16/18 20:59 Last Infusion: 02/15/18 22:26 Dose: Infused Diltiazem HCl 125 mg/ Dextrose 125 mls @ 10 mls/hr IV TITR STACEY; Protocol Stop: 04/17/18 09:14 Lactulose (Cephulac) 30 gm PO TID STACEY Stop: 04/15/18 15:59 Last Admin: 02/16/18 14:00 Dose: Not Given Lorazepam (Ativan) 1 mg IVP Q4HR PRN; Protocol PRN Reason: Agitation Stop: 04/16/18 10:15 Last Admin: 02/15/18 14:56 Dose: 1 mg Methylprednisolone Sodium Succinate (Solu-Medrol) 40 mg IV Q12HR STACEY Stop: 04/16/18 20:59 Last Admin: 02/16/18 08:47 Dose: 40 mg Miscellaneous (Probiotic Screen) 1 ea MC PRN PRN PRN Reason: PROTOCOL Stop: 04/17/18 12:27 Ondansetron HCl (Zofran) 4 mg IVP Q6H PRN PRN Reason: Nausea / Vomiting Stop: 04/15/18 15:46 Pantoprazole Sodium (Protonix) 40 mg IVP BID ON LICENSE OF [facility] Stop: 04/16/18 16:59 Last Admin: 02/16/18 08:47 Dose: 40 mg General: Other (comatose, on vent) HEENT: Atraumatic, Mucous membr. moist/pink Neck: Supple, +2 carotid pulse wo bruit Cardiovascular: Other (tachycardic) Lungs: Other (coarse rhonchi) Abdomen: Soft Extremities: no Edema Neurological: Sensation intact Skin: no Rash Psych/Mental Status: Mood NL - Procedures Procedures: Procedures Procedure Code Date RESPIRATORY VENTILATION, LESS THAN 24 CONSECUTIVE HOURS [id number] 02/14/18 Assessment/Plan - Assessment Assessment: LELE-anuric acute cortical injury ALOC Shock septic Sepsis Cx UTI, Left HAP AG met Acid Severe Dehydration T2DM Hypothyroid Acute resp failure on Vent - Plan Plan: Lab - Result Diagrams 02/15/18 05:00 02/15/18 05:00 Current Medications Acetaminophen (Tylenol) 325 mg PO Q6H PRN PRN Reason: MILD PAIN/HEADACHE/TEMP > 101 Stop: 04/15/18 15:46 Albuterol/Ipratropium (Duoneb Neb) 3 ml HHN Q4HRT STACEY Stop: 04/15/18 22:59 Last Admin: 02/15/18 14:03 Dose: 3 ml Budesonide (Pulmicort) 0.5 mg HHN BIDRT STACEY Stop: 04/16/18 06:59 Last Admin: 02/15/18 07:15 Dose: 0.5 mg Norepinephrine Bitartrate 8 mg (/ Dextrose) 258 mls @ 15.48 mls/hr IV TITR PRN ; Protocol PRN Reason: BP MAINTENANCE (PER PROTOCOL) Stop: 04/15/18 15:03 Last Admin: 02/15/18 10:57 Dose: 30 mcg/min, 58.05 mls/hr Meropenem 500 mg/ Sodium (Chloride) 100 mls @ 100 mls/hr IV Q24H STACEY Stop: 04/15/18 19:59 Last Infusion: 02/14/18 21:32 Dose: Infused Phenylephrine HCl 50 mg/ (Sodium Chloride) 250 mls @ 0 mls/hr IV TITR STACEY; Protocol Stop: 04/15/18 16:44 Last Admin: 02/15/18 11:49 Dose: 180 mcg/min, 54 mls/hr Insulin Human Regular 100 (units/ Sodium Chloride) 101 mls @ 0 mls/hr IV TITR STACEY; Protocol Stop: 04/16/18 03:14 Sodium Bicarbonate 150 meq/ (Dextrose/Sodium Chloride) 1,150 mls @ 150 mls/hr IV .Q7H40M STACEY Stop: 04/15/18 18:59 Dopamine HCl/Dextrose (Dopamine) 400 mg in 250 mls @ 0 mls/hr IV TITR PRN; Protocol PRN Reason: BP MAINTENANCE (PER PROTOCOL) Stop: 04/15/18 20:18 Last Admin: 02/15/18 13:30 Dose: 30 mcg/kg/min, 90.831 mls/hr Albumin Human (Albutein 5%) 12.5 gm in 250 mls @ 62.5 mls/hr IV X1 ONE Stop: 02/15/18 14:20 Last Admin: 02/15/18 11:43 Dose: 62.5 mls/hr Dextrose/Sodium Chloride (D5-0.45ns) 1,000 mls @ 150 mls/hr IV .Q6H40M STACEY Stop: 04/16/18 11:30 Insulin Aspart (Novolog Insulin Sliding Scale) 0 units SUBQ ACHS STACEY; Protocol Stop: 04/15/18 16:29 Last Admin: 02/15/18 13:37 Dose: 12 units Lactulose (Cephulac) 30 gm PO TID STACEY Stop: 04/15/18 15:59 Last Admin: 02/15/18 09:00 Dose: Not Given Lorazepam (Ativan) 1 mg IVP Q4HR PRN; Protocol PRN Reason: Agitation Stop: 04/16/18 10:15 Methylprednisolone Sodium Succinate (Solu-Medrol) 40 mg IV Q6HR STACEY Stop: 02/19/18 22:59 Last Admin: 02/15/18 11:42 Dose: 40 mg Ondansetron HCl (Zofran) 4 mg IVP Q6H PRN PRN Reason: Nausea / Vomiting Stop: 04/15/18 15:46 Lab - Result Diagrams 02/16/18 04:05 02/16/18 04:05 still anuric LELE on max Levo, Edis, Dopa @ 12.5 continue IVF pH now @ 7.2, on vent administer more HC03 awaiting for cultures On Merrem poor prognosis
[2018-02-16] MEDS: D5-0.9%NS 1,000 ML IV SCH ×2 (14:45→23:42)
--- NOTE | 2018-02-16 16:11 | Progress Notes ---
DATE: 02/16/2018 PULMONARY PROGRESS NOTE PROBLEM LIST: 1. Septic shock. 2. Renal failure. 3. Altered level of consciousness, which is possibly fluid overload. 4. ____ as well as hyperglycemia symptoms. The patient is obtunded, no respiratory distress. BP maintaining with multiple vasopressors. The patient is ____ 100% of oxygen saturation barely low 90s to high 80s and not responding, no respiratory distress. PHYSICAL EXAMINATION: VITAL SIGNS: Temperature is 96. The heart rate is 110-160, blood pressure is maintained in the vasopressor about 100-120, saturations in mid to low 90s to high 80s. NECK: Veins not visualized. CHEST: Shows scattered wheezing and scattered rales and rhonchi with marked diminished air entry. HEART: Regular. ABDOMEN: Soft, slightly distended. EXTREMITIES: Shows slight trace of peripheral edema. LABORATORY DATA: The patient's WBC is 14,000, hemoglobin 8.3 and patient's neutrophil ____ is 15%. ABG shows metabolic acidemia with pO2 of 90. Electrolytes shows anion gap 100. Creatinine is 9.5 and sugar is 343. IMPRESSION: The patient is doing poorly with multisystem failure including sepsis, diabetic mellitus as well as respiratory failure, and hypotension. PLANS AND SUGGESTIONS: Continue supportive care. Care and plan discussed with the nursing staff. JOB# [id number]
--- NOTE | 2018-02-16 16:36 | Progress Notes ---
DATE: 02/16/2018 SUBJECTIVE: The patient seen and examined. The patient is currently intubated and sedated. The patient does not follow commands, but responds to painful stimuli. Still on pressure agent. Last night, the patient had an episode of SVT. The patient was placed on IV Cardizem drip. PHYSICAL EXAMINATION: On today's exam; VITAL SIGNS: Temperature 97.7, pulse is 108, respiratory 26, and blood pressure 102/54. HEENT: Remarkable legally blindness. Oral endotracheal tube noted. NECK: Supple, no JVD. HEART: Regular. LUNGS: Has expiratory wheezing. ABDOMEN: Soft. No guarding or rigidity. Bowel sounds present. No palpable mass. EXTREMITIES: A +1 edema noted. No calf tenderness. AVAILABLE DIAGNOSTIC DATA: Blood cultures no growth. Chemistry panel remarkable for white count of 14.3, hemoglobin 8.6, and platelet count of 157. Sodium 129, potassium 4.5, chloride 89, BUN and creatinine is 109.5, anion gap of 27.4. Blood sugar of 280. Lactic acid is 5.80 and troponin of 2.81. AST, ALT are 134 and 95. Ammonia of 56. Amylase and lipase 233 and 111. Urinalysis on 02/14/2018, remarkable for urinary tract infection. ABG: pH of 7.25, pCO2 of 40, pO2 of 90, and O2 sats of 95%. CLINICAL IMPRESSION: 1. Acute respiratory failure, required endotracheal intubation and mechanical ventilation. 2. Septic shock. 3. Urinary tract infection, complicated type. 4. Metabolic acidosis. 5. Acute kidney injury. 6. Diabetes mellitus with elevated blood sugar. 7. Electrolyte imbalance. 8. Elevated troponin, probably from chronic acute kidney disease. 9. Supraventricular tachycardia. 10. Anion gap metabolic acidosis. 11. Microcytic hypochromic anemia. 12. Leukocytosis. PLAN: Discussed with the patient's , Daniella Medina, over the phone about the patient's condition, diagnosis, treatment plan as well as consult, recommendation. The patient's overall condition is extremely guarded. Recommended at this time to continue to provide vent support, nebulizer treatment, IV antibiotic, pressure agents along with a followup on lab, along with a corrected electrolytes and acidosis and following the consult and recommendation and see how the patient does. If the patient's condition continues to deteriorate, the patient's is considering to withdraw the life support. The patient will have meanwhile continuation of the insulin drip as well and will give further recommendations once other labs are available and we will have social service involved in order to provide adequate guidance to to make appropriate right decision. JOB# [id number]
--- NOTE | 2018-02-16 16:59 | Cardiology ---
02/15/2018 PATIENT OF: Dr. Nance. M-MODE ECHOCARDIOGRAM: Mitral valve, anterior leaflet of mitral valve shows normal excursion, EF velocity. Posterior leaflet of the mitral valve shows normal excursion. Left ventricular posterior wall shows increased thickness, normal excursion. Interventricular septum shows increased thickness, normal excursion, hypertrophy of the left ventricle, ejection fraction 75%. Left atrium normal. Aortic root shows normal dimension, normal excursion of aortic leaflets. CONCLUSION: Hypertrophy of the left ventricle, ejection fraction 75%. 2D ECHO: Long axis view showed normal sized left ventricle with hypertrophy of the left ventricle. Left atrium normal. Aortic root showed normal dimension, normal excursion of aortic leaflets. Short axis view of mitral valve normal. Short axis view of aortic valve normal. Apical four chamber view showed normal sized left ventricle with hypertrophy of the left ventricle. Left atrium normal. Right ventricular cavity, right atrium normal. No pericardial effusion. CONCLUSION: Hypertrophy of the left ventricle, ejection fraction 75%. Doppler study shows trace mitral regurgitation, trace tricuspid regurgitation, right ventricular systolic pressure 41 mmHg. The patient also has pleural effusion. JOB# [id number]
[2018-02-16] MEDS: Meropenem 500 MG in Sodium Chloride 0.9% 100 ML IV SCH (20:18)
--- NOTE | 2018-02-16 21:14 | GI Progress Note ---
Subjective - Review of Systems Service Date: 02/16/18 Events since last encounter: no major events , patient currently intubated and sedated. very ill appearing Objective - Results Result Diagrams: 02/16/18 04:05 02/16/18 04:05 Recent Labs: Laboratory Last Values WBC 14.3 Th/cmm (4.8-10.8) H 02/16/18 04:05 RBC 3.45 Mil/cmm (3.80-5.80) L 02/16/18 04:05 Hgb 8.6 gm/dL (12-16) L 02/16/18 04:05 Hct 26.5 % (41.0-60) L 02/16/18 04:05 MCV 76.8 fl (80-99) L 02/16/18 04:05 MCH 24.8 pg (27.0-31.0) L 02/16/18 04:05 MCHC Differential 32.3 pg (28.0-36.0) 02/16/18 04:05 RDW 19.3 % (11.5-20.0) 02/16/18 04:05 Plt Count 157 Th/cmm (150-400) D 02/16/18 04:05 MPV 8.0 fl 02/16/18 04:05 Add Manual Diff YES 02/16/18 04:05 Neutrophils % 75.5 % (40.0-80.0) 02/14/18 15:50 Band Neutrophils % 15 % (0-10) H 02/16/18 04:05 Lymphocytes % 22.9 % (20.0-50.0) 02/14/18 15:50 Monocytes % 1.2 % (2.0-10.0) L 02/14/18 15:50 Eosinophils % 0.4 % (0.0-5.0) 02/14/18 15:50 Basophils % 0.0 % (0.0-2.0) 02/14/18 15:50 Neutrophils (Manual) 80 % (40-80) 02/16/18 04:05 Lymphocytes 4 % (20-50) L 02/16/18 04:05 Monocytes 1 % (2-10) L 02/16/18 04:05 Platelet Estimate ADEQUATE (NORMAL) 02/16/18 04:05 Poikilocytosis 2+ 02/15/18 05:00 Anisocytosis 1+ 02/15/18 05:00 Microcytosis 1+ 02/15/18 05:00 Rigo Cells 2+ 02/15/18 05:00 RBC Morph Micro Appear ABNORMAL (NORMAL) 02/15/18 05:00 PT 15.3 SECONDS (9.5-11.5) H 02/16/18 04:05 INR 1.50 (0.5-1.4) H 02/16/18 04:05 PTT (Actin FS) 37.6 SECONDS (26.0-38.0) 02/16/18 04:05 Specimen Source Arterial 02/16/18 08:12 Sample Site Right Radial 02/16/18 08:12 pH 7.25 (7.35-7.45) L 02/16/18 08:12 pCO2 40.0 mmHg (35.0-45.0) 02/16/18 08:12 pO2 90.0 mmHg (80.0-100.0) 02/16/18 08:12 HCO3 17.7 mEq/L (20.0-26.0) L 02/16/18 08:12 Base Excess -9.2 mEq/L (-3.0-3.0) L 02/16/18 08:12 O2 Saturation 95.0 % (92.0-100.0) 02/16/18 08:12 Garfield Test Positive 02/16/18 08:12 Vent Rate 18 02/16/18 08:12 Inspired O2 100 02/16/18 08:12 Tidal Volume 400 02/16/18 08:12 PEEP 5 02/16/18 08:12 Pressure (ins/psv/peep) N/A 02/16/18 08:12 Critical Value DM 02/16/18 08:12 Sodium 129 mEq/L (136-145) L 02/16/18 04:05 Potassium 4.5 mEq/L (3.5-5.1) 02/16/18 04:05 Chloride 89 mEq/L (98-107) L 02/16/18 04:05 Carbon Dioxide 17.1 mEq/L (21.0-31.0) L 02/16/18 04:05 Anion Gap 27.4 (7.0-16.0) H 02/16/18 04:05 BUN 100 mg/dL (7-25) H* 02/16/18 04:05 Creatinine 9.5 mg/dL (0.7-1.3) H* 02/16/18 04:05 Est GFR ( Amer) TNP 02/16/18 04:05 Est GFR (Non-Af Amer) TNP 02/16/18 04:05 BUN/Creatinine Ratio 10.5 02/16/18 04:05 Glucose 343 mg/dL (70-105) H 02/16/18 04:05 POC Glucose 331 MG/DL (70 - 105) H 02/16/18 20:42 Whole Bld Lactic Acid 5.80 mmol/L (0.60-1.99) H* 02/16/18 07:30 Calcium 6.2 mg/dL (8.6-10.3) L 02/16/18 04:05 Phosphorus 9.2 mg/dL (2.5-5.0) H* 02/16/18 04:05 Magnesium 1.8 mg/dL (1.9-2.7) L 02/16/18 04:05 Total Bilirubin 0.4 mg/dL (0.3-1.0) 02/16/18 04:05 Direct Bilirubin 0.15 mg/dL (0.0-0.2) 02/16/18 04:05 AST 134 U/L (13-39) H 02/16/18 04:05 ALT 95 U/L (7-52) H 02/16/18 04:05 Alkaline Phosphatase 47 U/L (34-104) 02/16/18 04:05 Ammonia 56 umol/L (16-53) H 02/16/18 04:05 Troponin I 2.81 ng/mL (0.01-0.05) H* D 02/16/18 04:05 B-Natriuretic Peptide 748.0 pg/mL (5.0-100.0) H 02/16/18 04:05 Total Protein 4.4 gm/dL (6.0-8.3) L 02/16/18 04:05 Albumin 2.6 gm/dL (4.2-5.5) L 02/16/18 04:05 Globulin 1.8 gm/dL 02/16/18 04:05 Albumin/Globulin Ratio 1.4 (1.0-1.8) 02/16/18 04:05 Amylase 233 U/L (29-103) H 02/16/18 04:05 Lipase 111 U/L (11-82) H 02/16/18 04:05 Free T4 0.39 ng/dL (0.82-1.77) L 02/15/18 05:00 Free T3 0.8 pg/mL (2.0-4.4) L 02/15/18 05:00 TSH 3.05 uIU/ml (0.34-5.60) 02/15/18 05:00 Urine Source POOLE PORT 02/14/18 18:35 Urine Color YELLOW 02/14/18 18:35 Urine Clarity CLOUDY (CLEAR) 02/14/18 18:35 Urine pH 6.0 (4.6 - 8.0) 02/14/18 18:35 Ur Specific Dalton 1.025 (1.005-1.030) 02/14/18 18:35 Urine Protein >300 mg/dL (NEGATIVE) H 02/14/18 18:35 Urine Glucose (UA) 100 mg/dL (NEGATIVE) H 02/14/18 18:35 Urine Ketones 15 mg/dL (NEGATIVE) H 02/14/18 18:35 Urine Blood LARGE (NEGATIVE) H 02/14/18 18:35 Urine Nitrate NEGATIVE (NEGATIVE) 02/14/18 18:35 Urine Bilirubin NEGATIVE (NEGATIVE) 02/14/18 18:35 Urine Urobilinogen 0.2 E.U./dL (0.2 - 1.0) 02/14/18 18:35 Ur Leukocyte Esterase SMALL (NEGATIVE) H 02/14/18 18:35 Urine RBC 10-25 /hpf (0-5) H 02/14/18 18:35 Urine WBC 6-10 /hpf (0-5) 02/14/18 18:35 Ur Epithelial Cells FEW /lpf (FEW) 02/14/18 18:35 Urine Bacteria 1+ /hpf (NONE SEEN) H 02/14/18 18:35 Random Vancomycin 12.4 ug/mL (5.0-40.0) 02/16/18 04:05 - Physical Exam Vitals and I&O: Vital Signs Temp 97.8 F 02/16/18 20:00 Pulse 98 02/16/18 21:07 Resp 28 02/16/18 20:00 BP 104/44 02/16/18 21:07 Pulse Ox 91 02/16/18 21:04 Intake & Output 02/16/18 02/16/18 02/17/18 06:59 18:59 06:59 Intake Total 5397.817 2935.332 347.689 Output Total 425 250 Balance 4972.817 2685.332 347.689 Weight (lbs) 90.718 kg 99.382 kg Intake: Intake, IV Amount 3697.817 2935.332 347.689 Azithromycin 500 mg In 250 Sodium Chloride 0.9% 250 ml @ 250 mls/hr IV Q24HR [facility] Rx#:[id number] D5-0.45NS 1,000 ml @ 150 1000 1012.5 mls/hr IV .Q6H40M [facility] Rx# :[id number] DOPamine 400 mg In 250 ml 1000.000 587.804 @ Per Protocol IV TITR PRN Rx#:[id number] Diltiazem 125 mg In 82.417 Dextrose 5% 100 ml @ 10 mls/hr IV TITR [facility] Rx#: [id number] Insulin Human Regular 100 46.404 50.956 7.272 units In Sodium Chloride 0.9% 100 ml @ 0 UNITS/HR IV TITR [facility] Rx#: [id number] Mag Sulfate 2gm/50mL 50 Premix 2 gm In 50 ml @ 25 mls/hr IV X1 [facility] Rx#: [id number] Meropenem 500 mg In 100 Sodium Chloride 0.9% 100 ml @ 100 mls/hr IV Q24H [facility] Rx#:[id number] Norepinephrine 8 mg In 801.413 484.072 258 Dextrose 5% 250 ml @ 8 MCG/MIN 15.48 mls/hr IV TITR PRN Rx#:[id number] Phenylephrine HCl 50 mg 500 750 In Sodium Chloride 0.9% 250 ml @ 0 MCG/MIN IV TITR [facility] Rx#:[id number] Oral 0 0 Other 1700 Output: Gastric Drainage 200 150 Urine 225 100 Stool 0 Other: # Bowel Movements 0 0 Weight Source Bedscale Bedscale Active Medications: Current Medications Acetaminophen (Tylenol) 325 mg PO Q6H PRN PRN Reason: MILD PAIN/HEADACHE/TEMP > 101 Stop: 04/15/18 15:46 Albuterol/Ipratropium (Duoneb Neb) 3 ml HHN Q4HRT [facility] Stop: 04/15/18 22:59 Last Admin: 02/16/18 19:06 Dose: 3 ml Budesonide (Pulmicort) 0.5 mg HHN BIDRT [facility] Stop: 04/16/18 06:59 Last Admin: 02/16/18 19:16 Dose: 0.5 mg Norepinephrine Bitartrate 8 mg (/ Dextrose) 258 mls @ 15.48 mls/hr IV TITR PRN ; Protocol PRN Reason: BP MAINTENANCE (PER PROTOCOL) Stop: 04/15/18 15:03 Last Admin: 02/16/18 20:17 Dose: 30 mcg/min, 58.05 mls/hr Meropenem 500 mg/ Sodium (Chloride) 100 mls @ 100 mls/hr IV Q24H [facility] Stop: 04/15/18 19:59 Last Admin: 02/16/18 20:18 Dose: 100 mls/hr Phenylephrine HCl 50 mg/ (Sodium Chloride) 250 mls @ 0 mls/hr IV TITR [facility]; Protocol Stop: 04/15/18 16:44 Last Admin: 02/16/18 17:40 Dose: 180 mcg/min, 54 mls/hr Insulin Human Regular 100 (units/ Sodium Chloride) 101 mls @ 0 mls/hr IV TITR [facility]; Protocol Stop: 04/16/18 03:14 Last Titration: 02/16/18 20:47 Dose: 4 units/hr, 4.04 mls/hr Dopamine HCl/Dextrose (Dopamine) 400 mg in 250 mls @ 0 mls/hr IV TITR PRN; Protocol PRN Reason: BP MAINTENANCE (PER PROTOCOL) Stop: 04/15/18 20:18 Last Titration: 02/16/18 17:00 Dose: 7.5 mcg/kg/min, 22.708 mls/hr Azithromycin 500 mg/ Sodium (Chloride) 250 mls @ 250 mls/hr IV Q24HR [facility] Stop: 04/16/18 20:59 Last Infusion: 02/15/18 22:26 Dose: Infused Diltiazem HCl 125 mg/ Dextrose 125 mls @ 10 mls/hr IV TITR [facility]; Protocol Stop: 04/17/18 09:14 Last Titration: 02/16/18 21:11 Dose: 7.5 mg/hr, 7.5 mls/hr Dextrose/Sodium Chloride (D5-0.9%Ns) 1,000 mls @ 150 mls/hr IV .Q6H40M [facility] Stop: 04/17/18 14:44 Last Admin: 02/16/18 14:45 Dose: 150 mls/hr Lactulose (Cephulac) 30 gm PO TID [facility] Stop: 04/15/18 15:59 Last Admin: 02/16/18 20:52 Dose: Not Given Lorazepam (Ativan) 1 mg IVP Q4HR PRN; Protocol PRN Reason: Agitation Stop: 04/16/18 10:15 Last Admin: 02/15/18 14:56 Dose: 1 mg Methylprednisolone Sodium Succinate (Solu-Medrol) 40 mg IV Q12HR [facility] Stop: 04/16/18 20:59 Last Admin: 02/16/18 20:51 Dose: 40 mg Miscellaneous (Probiotic Screen) 1 ea MC PRN PRN PRN Reason: PROTOCOL Stop: 04/17/18 12:27 Ondansetron HCl (Zofran) 4 mg IVP Q6H PRN PRN Reason: Nausea / Vomiting Stop: 04/15/18 15:46 Pantoprazole Sodium (Protonix) 40 mg IVP BID [facility] Stop: 04/16/18 16:59 Last Admin: 02/16/18 16:52 Dose: 40 mg General: Severe distress, Other (comatose, on vent) HEENT: Atraumatic, Mucous membr. moist/pink Neck: Supple, +2 carotid pulse wo bruit Cardiovascular: Regular rate, Systolic murmurs, Other (tachycardic) Lungs: Clear to auscultation, Normal air movement, Other (coarse rhonchi) Abdomen: Soft Extremities: no Edema Neurological: Sensation intact Skin: no Rash Psych/Mental Status: Mood NL - Procedures Procedures: Procedures Procedure Code Date RESPIRATORY VENTILATION, LESS THAN 24 CONSECUTIVE HOURS [id number] 02/14/18 Assessment/Plan - Assessment Assessment: 72 yo male with anemai, vent dependant respiratory failure, ftt and critically ill 1. Anemia 2. VDRF 3. Critically ill -Will eventually need EGD/Colonoscopy once more stable -Currently risks outweigh benefits of the procedure -Will follow
[2018-02-16] MEDS: Azithromycin 500 MG in Sodium Chloride 0.9% 250 ML IV SCH (21:20)
[2018-02-17] MEDS: DOPamine 400 MG/250 ML BAG IV PRN ×3 (01:13→20:14)
[2018-02-17] MEDS: Albuterol/Ipratropium Neb 3 ML AERS HHN SCH ×6 (03:01→23:15)
[2018-02-17] MEDS: Phenylephrine HCl 50 MG in Sodium Chloride 0.9% 250 ML IV SCH ×5 (03:51→22:02)
[2018-02-17 04:31] LABS: PLATELET COUNT 156 Th/cmm (150-400)
[2018-02-17 04:46] LABS: MEAN CELL VOLUME 76.6 fl (80-99); MEAN CORPUSCULAR HEMOGLOBIN 25.2 pg (27.0-31.0); MEAN CORPUSCULAR HGB CONC 32.9 pg (28.0-36.0); MEAN PLATELET VOLUME 8.2 fl
[2018-02-17 04:59] LABS: HEMATOCRIT 23.7 % (41.0-60); WHITE BLOOD COUNT 17.8 Th/cmm (4.8-10.8)
[2018-02-17 06:12] LABS: pH 7.18 (7.35-7.45)
[2018-02-17 06:14] LABS: ALLEN TEST Positive
[2018-02-17 06:41] LABS: BAND NEUTROPHILE 0 % (0-10); BASOPHIL 0 % (0-3); EOSINOPHIL 1 % (0-5); LYMPHOCYTE 4 % (20-50); MONOCYTE 5 % (2-10); NEUTROPHILS 90 % (40-80); PLATELET ESTIMATE ADEQUATE (NORMAL)
[2018-02-17] MEDS: D5-0.9%NS 1,000 ML IV SCH ×2 (06:47→16:08)
[2018-02-17] MEDS: Budesonide 0.5 Mg/2 mL Ud HHN SCH ×2 (07:13→19:10)
[2018-02-17 07:28] LABS: ALB/GLOB RATIO 1.2 (1.0-1.8); ALBUMIN 2.2 gm/dL (4.2-5.5); ALKALINE PHOSPHATASE 55 U/L (34-104); AMYLASE SERUM 98 U/L (29-103); ANION GAP 21.4 (7.0-16.0); BILIRUBIN,TOTAL 0.4 mg/dL (0.3-1.0); CARBON DIOXIDE 19.2 mEq/L (21.0-31.0); CHLORIDE 88 mEq/L (98-107); GLUCOSE 354 mg/dL (70-105); PHOSPHOROUS 9.4 mg/dL (2.5-5.0); POTASSIUM SERUM 4.6 mEq/L (3.5-5.1); SGOT 70 U/L (13-39); SGPT/ALT 70 U/L (7-52); SODIUM SERUM 124 mEq/L (136-145)
[2018-02-17 07:37] LABS: BUN - UREA NITROGEN 97 mg/dL (7-25); CREATININE - SERUM 9.2 mg/dL (0.7-1.3)
[2018-02-17 07:38] LABS: CALCIUM SERUM 5.6 mg/dL (8.6-10.3)
[2018-02-17] MEDS: methylPREDNISolone SS 40 mg Vial IV SCH ×2 (08:22→20:51)
--- NOTE | 2018-02-17 08:51 | GI Progress Note ---
Subjective - Review of Systems Service Date: 02/17/18 Subjective: Intubated, sedated. No overnight events Objective - Results Result Diagrams: 02/17/18 04:15 02/17/18 04:15 Recent Labs: Laboratory Last Values WBC 17.8 Th/cmm (4.8-10.8) H 02/17/18 04:15 RBC 3.10 Mil/cmm (3.80-5.80) L 02/17/18 04:15 Hgb 7.8 gm/dL (12-16) L* 02/17/18 04:15 Hct 23.7 % (41.0-60) L 02/17/18 04:15 MCV 76.6 fl (80-99) L 02/17/18 04:15 MCH 25.2 pg (27.0-31.0) L 02/17/18 04:15 MCHC Differential 32.9 pg (28.0-36.0) 02/17/18 04:15 RDW 19.0 % (11.5-20.0) 02/17/18 04:15 Plt Count 156 Th/cmm (150-400) 02/17/18 04:15 MPV 8.2 fl 02/17/18 04:15 Add Manual Diff YES 02/17/18 04:15 Neutrophils % [employer]ITCH[employer] OPERATOR HELPER 02/17/18 04:15 Band Neutrophils % 0 % (0-10) 02/17/18 04:15 Lymphocytes % [employer]ITCHBOARD OPERATOR HELPER 02/17/18 04:15 Monocytes % SWITCHBOARD OPERATOR HELPER 02/17/18 04:15 Eosinophils % SWITCHBOARD OPERATOR HELPER 02/17/18 04:15 Basophils % SWITCHBOARD OPERATOR HELPER 02/17/18 04:15 Neutrophils (Manual) 90 % (40-80) H 02/17/18 04:15 Lymphocytes 4 % (20-50) L 02/17/18 04:15 Monocytes 5 % (2-10) 02/17/18 04:15 Eosinophils 1 % (0-5) 02/17/18 04:15 Basophils 0 % (0-3) 02/17/18 04:15 Platelet Estimate ADEQUATE (NORMAL) 02/17/18 04:15 Poikilocytosis 2+ 02/15/18 05:00 Anisocytosis 1+ 02/15/18 05:00 Microcytosis 2+ 02/17/18 04:15 Rigo Cells 2+ 02/15/18 05:00 RBC Morph Micro Appear ABNORMAL (NORMAL) 02/15/18 05:00 PT 15.3 SECONDS (9.5-11.5) H 02/16/18 04:05 INR 1.50 (0.5-1.4) H 02/16/18 04:05 PTT (Actin FS) 37.6 SECONDS (26.0-38.0) 02/16/18 04:05 Specimen Source ARTERIAL 02/17/18 05:00 Sample Site Left Radial 02/17/18 05:00 pH 7.18 (7.35-7.45) L* 02/17/18 05:00 pCO2 53.0 mmHg (35.0-45.0) H 02/17/18 05:00 pO2 50.0 mmHg (80.0-100.0) L 02/17/18 05:00 HCO3 17.5 mEq/L (20.0-26.0) L 02/17/18 05:00 Base Excess -8.8 mEq/L (-3.0-3.0) L 02/17/18 05:00 O2 Saturation 74.0 % (92.0-100.0) L 02/17/18 05:00 Garfield Test Positive 02/17/18 05:00 Vent Rate 18 02/17/18 05:00 Inspired O2 100 02/17/18 05:00 Tidal Volume 400 02/17/18 05:00 PEEP 5 02/17/18 05:00 Pressure (ins/psv/peep) N/A 02/17/18 05:00 Critical Value J.Y 02/17/18 05:00 Sodium 124 mEq/L (136-145) L 02/17/18 04:15 Potassium 4.6 mEq/L (3.5-5.1) 02/17/18 04:15 Chloride 88 mEq/L (98-107) L 02/17/18 04:15 Carbon Dioxide 19.2 mEq/L (21.0-31.0) L 02/17/18 04:15 Anion Gap 21.4 (7.0-16.0) H 02/17/18 04:15 BUN 97 mg/dL (7-25) H* 02/17/18 04:15 Creatinine 9.2 mg/dL (0.7-1.3) H* 02/17/18 04:15 Est GFR ( Amer) TNP 02/17/18 04:15 Est GFR (Non-Af Amer) TNP 02/17/18 04:15 BUN/Creatinine Ratio 10.5 02/17/18 04:15 Glucose 354 mg/dL (70-105) H 02/17/18 04:15 POC Glucose 300 MG/DL (70 - 105) H 02/17/18 08:15 Whole Bld Lactic Acid 5.80 mmol/L (0.60-1.99) H* 02/16/18 07:30 Calcium 5.6 mg/dL (8.6-10.3) L* 02/17/18 04:15 Phosphorus 9.4 mg/dL (2.5-5.0) H* 02/17/18 04:15 Magnesium 2.0 mg/dL (1.9-2.7) 02/17/18 04:15 Total Bilirubin 0.4 mg/dL (0.3-1.0) 02/17/18 04:15 Direct Bilirubin 0.15 mg/dL (0.0-0.2) 02/16/18 04:05 AST 70 U/L (13-39) H 02/17/18 04:15 ALT 70 U/L (7-52) H 02/17/18 04:15 Alkaline Phosphatase 55 U/L (34-104) 02/17/18 04:15 Ammonia 50 umol/L (16-53) 02/17/18 04:15 Troponin I 2.81 ng/mL (0.01-0.05) H* D 02/16/18 04:05 B-Natriuretic Peptide 748.0 pg/mL (5.0-100.0) H 02/16/18 04:05 Total Protein 4.0 gm/dL (6.0-8.3) L 02/17/18 04:15 Albumin 2.2 gm/dL (4.2-5.5) L 02/17/18 04:15 Globulin 1.8 gm/dL 02/17/18 04:15 Albumin/Globulin Ratio 1.2 (1.0-1.8) 02/17/18 04:15 Amylase 98 U/L (29-103) 02/17/18 04:15 Lipase 111 U/L (11-82) H 02/16/18 04:05 Free T4 0.39 ng/dL (0.82-1.77) L 02/15/18 05:00 Free T3 0.8 pg/mL (2.0-4.4) L 02/15/18 05:00 TSH 3.05 uIU/ml (0.34-5.60) 02/15/18 05:00 Urine Source POOLE PORT 02/14/18 18:35 Urine Color YELLOW 02/14/18 18:35 Urine Clarity CLOUDY (CLEAR) 02/14/18 18:35 Urine pH 6.0 (4.6 - 8.0) 02/14/18 18:35 Ur Specific Anthony 1.025 (1.005-1.030) 02/14/18 18:35 Urine Protein >300 mg/dL (NEGATIVE) H 02/14/18 18:35 Urine Glucose (UA) 100 mg/dL (NEGATIVE) H 02/14/18 18:35 Urine Ketones 15 mg/dL (NEGATIVE) H 02/14/18 18:35 Urine Blood LARGE (NEGATIVE) H 02/14/18 18:35 Urine Nitrate NEGATIVE (NEGATIVE) 02/14/18 18:35 Urine Bilirubin NEGATIVE (NEGATIVE) 02/14/18 18:35 Urine Urobilinogen 0.2 E.U./dL (0.2 - 1.0) 02/14/18 18:35 Ur Leukocyte Esterase SMALL (NEGATIVE) H 02/14/18 18:35 Urine RBC 10-25 /hpf (0-5) H 02/14/18 18:35 Urine WBC 6-10 /hpf (0-5) 02/14/18 18:35 Ur Epithelial Cells FEW /lpf (FEW) 02/14/18 18:35 Urine Bacteria 1+ /hpf (NONE SEEN) H 02/14/18 18:35 Random Vancomycin 12.4 ug/mL (5.0-40.0) 02/16/18 04:05 - Physical Exam Vitals and I&O: Vital Signs Temp 97.7 F 02/17/18 04:00 Pulse 105 02/17/18 07:24 Resp 29 02/17/18 07:55 BP 107/44 02/17/18 07:08 Pulse Ox 90 02/17/18 07:24 Intake & Output 02/16/18 02/17/18 02/17/18 18:59 06:59 18:59 Intake Total 2935.332 3949.553 Output Total 250 60 Balance 2685.332 3949.553 -60 Weight (lbs) 99.382 kg 99.337 kg Intake: Intake, IV Amount 2935.332 3949.553 Azithromycin 500 mg In 250 Sodium Chloride 0.9% 250 ml @ 250 mls/hr IV Q24HR [facility] Rx#:[id number] D5-0.45NS 1,000 ml @ 150 1012.5 mls/hr IV .Q6H40M [facility] Rx# :[id number] D5-0.9%Ns 1,000 ml @ 150 2000 mls/hr IV .Q6H40M [facility] Rx# :[id number] DOPamine 400 mg In 250 ml 587.804 156.560 @ Per Protocol IV TITR PRN Rx#:[id number] Diltiazem 125 mg In 121.001 Dextrose 5% 100 ml @ 10 mls/hr IV TITR [facility] Rx#: [id number] Insulin Human Regular 100 50.956 47.992 units In Sodium Chloride 0.9% 100 ml @ 0 UNITS/HR IV TITR [facility] Rx#: [id number] Mag Sulfate 2gm/50mL 50 Premix 2 gm In 50 ml @ 25 mls/hr IV X1 [facility] Rx#: [id number] Meropenem 500 mg In 100 Sodium Chloride 0.9% 100 ml @ 100 mls/hr IV Q24H [facility] Rx#:[id number] Norepinephrine 8 mg In 484.072 774 Dextrose 5% 250 ml @ 8 MCG/MIN 15.48 mls/hr IV TITR [facility] Rx#:[id number] Phenylephrine HCl 50 mg 750 500 In Sodium Chloride 0.9% 250 ml @ 0 MCG/MIN IV TITR [facility] Rx#:[id number] Oral 0 Output: Gastric Drainage 150 50 Urine 100 10 Stool 0 Other: # Bowel Movements 0 0 Weight Source Bedscale Bedscale Active Medications: Current Medications Acetaminophen (Tylenol) 325 mg PO Q6H PRN PRN Reason: MILD PAIN/HEADACHE/TEMP > 101 Stop: 04/15/18 15:46 Albuterol/Ipratropium (Duoneb Neb) 3 ml HHN Q4HRT [facility] Stop: 04/15/18 22:59 Last Admin: 02/17/18 07:13 Dose: 3 ml Budesonide (Pulmicort) 0.5 mg HHN BIDRT [facility] Stop: 04/16/18 06:59 Last Admin: 02/17/18 07:13 Dose: 0.5 mg Norepinephrine Bitartrate 8 mg (/ Dextrose) 258 mls @ 15.48 mls/hr IV TITR PRN ; Protocol PRN Reason: BP MAINTENANCE (PER PROTOCOL) Stop: 04/15/18 15:03 Last Admin: 02/17/18 06:20 Dose: 30 mcg/min, 58.05 mls/hr Meropenem 500 mg/ Sodium (Chloride) 100 mls @ 100 mls/hr IV Q24H [facility] Stop: 04/15/18 19:59 Last Infusion: 02/16/18 21:18 Dose: Infused Phenylephrine HCl 50 mg/ (Sodium Chloride) 250 mls @ 0 mls/hr IV TITR [facility]; Protocol Stop: 04/15/18 16:44 Last Admin: 02/17/18 03:51 Dose: 180 mcg/min, 54 mls/hr Insulin Human Regular 100 (units/ Sodium Chloride) 101 mls @ 0 mls/hr IV TITR [facility]; Protocol Stop: 04/16/18 03:14 Last Titration: 02/17/18 06:21 Dose: 3 units/hr, 3.03 mls/hr Dopamine HCl/Dextrose (Dopamine) 400 mg in 250 mls @ 0 mls/hr IV TITR PRN; Protocol PRN Reason: BP MAINTENANCE (PER PROTOCOL) Stop: 04/15/18 20:18 Last Admin: 02/17/18 01:13 Dose: 5 mcg/kg/min, 15.139 mls/hr Azithromycin 500 mg/ Sodium (Chloride) 250 mls @ 250 mls/hr IV Q24HR [facility] Stop: 04/16/18 20:59 Last Infusion: 02/16/18 22:20 Dose: Infused Diltiazem HCl 125 mg/ Dextrose 125 mls @ 10 mls/hr IV TITR [facility]; Protocol Stop: 04/17/18 09:14 Last Titration: 02/17/18 01:11 Dose: 12.5 mg/hr, 12.5 mls/hr Dextrose/Sodium Chloride (D5-0.9%Ns) 1,000 mls @ 150 mls/hr IV .Q6H40M [facility] Stop: 04/17/18 14:44 Last Admin: 02/17/18 06:47 Dose: 150 mls/hr Lactulose (Cephulac) 30 gm PO TID [facility] Stop: 04/15/18 15:59 Last Admin: 02/16/18 20:52 Dose: Not Given Lorazepam (Ativan) 1 mg IVP Q4HR PRN; Protocol PRN Reason: Agitation Stop: 04/16/18 10:15 Last Admin: 02/17/18 02:06 Dose: 1 mg Methylprednisolone Sodium Succinate (Solu-Medrol) 40 mg IV Q12HR [facility] Stop: 04/16/18 20:59 Last Admin: 02/17/18 08:22 Dose: 40 mg Miscellaneous (Probiotic Screen) 1 ea MC PRN PRN PRN Reason: PROTOCOL Stop: 04/17/18 12:27 Ondansetron HCl (Zofran) 4 mg IVP Q6H PRN PRN Reason: Nausea / Vomiting Stop: 04/15/18 15:46 Pantoprazole Sodium (Protonix) 40 mg IVP BID [facility] Stop: 04/16/18 16:59 Last Admin: 02/17/18 08:21 Dose: 40 mg General: Other (comatose, on vent) HEENT: Atraumatic, Mucous membr. moist/pink Neck: Supple, +2 carotid pulse wo bruit Cardiovascular: Regular rate, Other (tachycardic) Lungs: Other (coarse rhonchi) Abdomen: Soft, no Tender, no Hepatomegaly, no Splenomegaly, no Rebound, no Mass , no Guarding Extremities: no Edema Neurological: Sensation intact Skin: no Rash Psych/Mental Status: Mood NL - Procedures Procedures: Procedures Procedure Code Date RESPIRATORY VENTILATION, LESS THAN 24 CONSECUTIVE HOURS [id number] 02/14/18 Assessment/Plan - Assessment Assessment: 72 yo male with anemia, vent dependant respiratory failure, ftt and critically ill 1. Anemia 2. VDRF 3. Critically ill -Will eventually need EGD/Colonoscopy once more stable to further investigate anemia. This will need to wait for pt to be stabilzed, or can be done more acutely if he develops acute and overt GI bleed -Currently risks outweigh benefits of the procedure - trend hgb - PPI -Will follow
--- NOTE | 2018-02-17 09:06 | Diagnostic Imaging Report ---
Portable chest x-ray HISTORY: Pneumonia Compared to prior exam of February 16, 2018, increasing infiltrate is seen throughout the right lung. Evidence for small right pleural effusion. Question left pleural effusion. An endotracheal tube tip is approximately 3.5 cm above the leticia. IMPRESSION: 1. Increasing infiltrate throughout the right lung.
[2018-02-17] MEDS ORDERED: Sodium Bicarbonate 8.4% 50mEq PFS IVP ONE ×2 (09:28)
[2018-02-17] MEDS: Lactulose 10 Gm/15 mL 30mL UDC PO SCH ×3 (09:57→20:51)
[2018-02-17] MEDS ORDERED: Calcium Gluconate 3 GM in Sodium Chloride 0.9% 100 ML IV ONE (10:00)
--- NOTE | 2018-02-17 14:14 | History & Physical ---
ADMIT DATE: 02/17/2018 PROBLEM LIST: 1. Persistent respiratory failure. 2. Hypotension. 3. Renal failure. 4. Sepsis. 5. Diabetes mellitus. 6. Multisystem failure. 7. The patient vaguely opens her eyes, move from side to side, but no meaningful communication could be done. PHYSICAL EXAMINATION: RESPIRATORY: The patient ____ 100% of oxygen with a 5-7 cm of PEEP. No respiratory distress, but periods of agonal breathing. VITAL SIGNS: Pulse rate is in the 100-110, blood pressure is ranging from 96-103, and saturation is low 90s in the current respiratory status setting. NECK: Neck veins not visualized. CHEST: Shows diminished air entry with lot of secretory noise. HEART: Regular. ABDOMEN: Soft, nontender. EXTREMITIES: More edematous changes. LABORATORY DATA: The patient's white count is 7.8, hemoglobin 7, white count is 17.8, hemoglobin 7.8 and neutrophil is 90. ABG shows mixed acidemia mostly predominantly metabolic acidosis. Sodium is 124, creatinine is 9.2, and BUN is 97. IMPRESSION: The patient clinically is doing poorly with multisystem failure with a quite of haziness in the right side with possibly extensive ____ left mid lung. PLANS AND SUGGESTIONS: I have discussed with Dr. Arenas and nursing staff and also ____. We will continue current regimen. Overall, prognosis remains to be very poor. Continue current rate of treatment respiratory reese. JOB# [id number]
--- NOTE | 2018-02-17 14:58 | General Progress Note ---
Subjective - Review of Systems Service Date: 02/17/18 Subjective: comatose, on vent Objective - Results Result Diagrams: 02/17/18 04:15 02/17/18 04:15 Recent Labs: Laboratory Last Values WBC 17.8 Th/cmm (4.8-10.8) H 02/17/18 04:15 RBC 3.10 Mil/cmm (3.80-5.80) L 02/17/18 04:15 Hgb 7.8 gm/dL (12-16) L* 02/17/18 04:15 Hct 23.7 % (41.0-60) L 02/17/18 04:15 MCV 76.6 fl (80-99) L 02/17/18 04:15 MCH 25.2 pg (27.0-31.0) L 02/17/18 04:15 MCHC Differential 32.9 pg (28.0-36.0) 02/17/18 04:15 RDW 19.0 % (11.5-20.0) 02/17/18 04:15 Plt Count 156 Th/cmm (150-400) 02/17/18 04:15 MPV 8.2 fl 02/17/18 04:15 Add Manual Diff YES 02/17/18 04:15 Neutrophils % ORDER DESK CALLER 02/17/18 04:15 Band Neutrophils % 0 % (0-10) 02/17/18 04:15 Lymphocytes % ORDER DESK CALLER 02/17/18 04:15 Monocytes % ORDER DESK CALLER 02/17/18 04:15 Eosinophils % ORDER DESK CALLER 02/17/18 04:15 Basophils % ORDER DESK CALLER 02/17/18 04:15 Neutrophils (Manual) 90 % (40-80) H 02/17/18 04:15 Lymphocytes 4 % (20-50) L 02/17/18 04:15 Monocytes 5 % (2-10) 02/17/18 04:15 Eosinophils 1 % (0-5) 02/17/18 04:15 Basophils 0 % (0-3) 02/17/18 04:15 Platelet Estimate ADEQUATE (NORMAL) 02/17/18 04:15 Poikilocytosis 2+ 02/15/18 05:00 Anisocytosis 1+ 02/15/18 05:00 Microcytosis 2+ 02/17/18 04:15 [place] Cells 2+ 02/15/18 05:00 RBC Morph Micro Appear ABNORMAL (NORMAL) 02/15/18 05:00 PT 15.3 SECONDS (9.5-11.5) H 02/16/18 04:05 INR 1.50 (0.5-1.4) H 02/16/18 04:05 PTT (Actin FS) 37.6 SECONDS (26.0-38.0) 02/16/18 04:05 Specimen Source ARTERIAL 02/17/18 05:00 Sample Site Left Radial 02/17/18 05:00 pH 7.18 (7.35-7.45) L* 02/17/18 05:00 pCO2 53.0 mmHg (35.0-45.0) H 02/17/18 05:00 pO2 50.0 mmHg (80.0-100.0) L 02/17/18 05:00 HCO3 17.5 mEq/L (20.0-26.0) L 02/17/18 05:00 Base Excess -8.8 mEq/L (-3.0-3.0) L 02/17/18 05:00 O2 Saturation 74.0 % (92.0-100.0) L 02/17/18 05:00 Garfield Test Positive 02/17/18 05:00 Vent Rate 18 02/17/18 05:00 Inspired O2 100 02/17/18 05:00 Tidal Volume 400 02/17/18 05:00 PEEP 5 02/17/18 05:00 Pressure (ins/psv/peep) N/A 02/17/18 05:00 Critical Value J.Y 02/17/18 05:00 Sodium 124 mEq/L (136-145) L 02/17/18 04:15 Potassium 4.6 mEq/L (3.5-5.1) 02/17/18 04:15 Chloride 88 mEq/L (98-107) L 02/17/18 04:15 Carbon Dioxide 19.2 mEq/L (21.0-31.0) L 02/17/18 04:15 Anion Gap 21.4 (7.0-16.0) H 02/17/18 04:15 BUN 97 mg/dL (7-25) H* 02/17/18 04:15 Creatinine 9.2 mg/dL (0.7-1.3) H* 02/17/18 04:15 Est GFR ( Amer) TNP 02/17/18 04:15 Est GFR (Non-Af Amer) TNP 02/17/18 04:15 BUN/Creatinine Ratio 10.5 02/17/18 04:15 Glucose 354 mg/dL (70-105) H 02/17/18 04:15 POC Glucose 293 MG/DL (70 - 105) H 02/17/18 14:06 Whole Bld Lactic Acid 5.80 mmol/L (0.60-1.99) H* 02/16/18 07:30 Calcium 5.6 mg/dL (8.6-10.3) L* 02/17/18 04:15 Phosphorus 9.4 mg/dL (2.5-5.0) H* 02/17/18 04:15 Magnesium 2.0 mg/dL (1.9-2.7) 02/17/18 04:15 Total Bilirubin 0.4 mg/dL (0.3-1.0) 02/17/18 04:15 Direct Bilirubin 0.15 mg/dL (0.0-0.2) 02/16/18 04:05 AST 70 U/L (13-39) H 02/17/18 04:15 ALT 70 U/L (7-52) H 02/17/18 04:15 Alkaline Phosphatase 55 U/L (34-104) 02/17/18 04:15 Ammonia 50 umol/L (16-53) 02/17/18 04:15 Troponin I 2.81 ng/mL (0.01-0.05) H* D 02/16/18 04:05 B-Natriuretic Peptide 748.0 pg/mL (5.0-100.0) H 02/16/18 04:05 Total Protein 4.0 gm/dL (6.0-8.3) L 02/17/18 04:15 Albumin 2.2 gm/dL (4.2-5.5) L 02/17/18 04:15 Globulin 1.8 gm/dL 02/17/18 04:15 Albumin/Globulin Ratio 1.2 (1.0-1.8) 02/17/18 04:15 Amylase 98 U/L (29-103) 02/17/18 04:15 Lipase 111 U/L (11-82) H 02/16/18 04:05 Free T4 0.39 ng/dL (0.82-1.77) L 02/15/18 05:00 Free T3 0.8 pg/mL (2.0-4.4) L 02/15/18 05:00 TSH 3.05 uIU/ml (0.34-5.60) 02/15/18 05:00 Urine Source POOLE [place] 02/14/18 18:35 Urine Color YELLOW 02/14/18 18:35 Urine Clarity CLOUDY (CLEAR) 02/14/18 18:35 Urine pH 6.0 (4.6 - 8.0) 02/14/18 18:35 Ur Specific [place] 1.025 (1.005-1.030) 02/14/18 18:35 Urine Protein >300 mg/dL (NEGATIVE) H 02/14/18 18:35 Urine Glucose (UA) 100 mg/dL (NEGATIVE) H 02/14/18 18:35 Urine Ketones 15 mg/dL (NEGATIVE) H 02/14/18 18:35 Urine Blood LARGE (NEGATIVE) H 02/14/18 18:35 Urine Nitrate NEGATIVE (NEGATIVE) 02/14/18 18:35 Urine Bilirubin NEGATIVE (NEGATIVE) 02/14/18 18:35 Urine Urobilinogen 0.2 E.U./dL (0.2 - 1.0) 02/14/18 18:35 Ur Leukocyte Esterase SMALL (NEGATIVE) H 02/14/18 18:35 Urine RBC 10-25 /hpf (0-5) H 02/14/18 18:35 Urine WBC 6-10 /hpf (0-5) 02/14/18 18:35 Ur Epithelial Cells FEW /lpf (FEW) 02/14/18 18:35 Urine Bacteria 1+ /hpf (NONE SEEN) H 02/14/18 18:35 Random Vancomycin 12.4 ug/mL (5.0-40.0) 02/16/18 04:05 - Physical Exam Vitals and I&O: Vital Signs Temp 97.6 F 02/17/18 12:00 Pulse 108 02/17/18 14:30 Resp 32 02/17/18 14:00 BP 105/48 02/17/18 14:30 Pulse Ox 100 02/17/18 14:00 Intake & Output 02/16/18 02/17/1818 18:59 06:59 18:59 Intake Total 2935.332 3949.553 1046.422 Output Total 250 60 Balance 2685.332 3949.553 986.422 Weight (lbs) 99.382 kg 99.337 kg Intake: Intake, IV Amount 2935.332 3949.553 1046.422 Azithromycin 500 mg In 250 Sodium Chloride 0.9% 250 ml @ 250 mls/hr IV Q24HR [facility] Rx#:[id number] D5-0.45NS 1,000 ml @ 150 1012.5 mls/hr IV .Q6H40M [facility] Rx# :[id number] D5-0.9%Ns 1,000 ml @ 150 2000 mls/hr IV .Q6H40M [facility] Rx# :[id number] DOPamine 400 mg In 250 ml 587.804 156.560 157.95 @ Per Protocol IV TITR PRN Rx#:[id number] Diltiazem 125 mg In 121.001 101.333 Dextrose 5% 100 ml @ 10 mls/hr IV TITR [facility] Rx#: [id number] Insulin Human Regular 100 50.956 47.992 29.139 units In Sodium Chloride 0.9% 100 ml @ 0 UNITS/HR IV TITR [facility] Rx#: [id number] Mag Sulfate 2gm/50mL 50 Premix 2 gm In 50 ml @ 25 mls/hr IV X1 ONE Rx#: [id number] Meropenem 500 mg In 100 Sodium Chloride 0.9% 100 ml @ 100 mls/hr IV Q24H [facility] Rx#:[id number] Norepinephrine 8 mg In 484.072 774 258 Dextrose 5% 250 ml @ 8 MCG/MIN 15.48 mls/hr IV TITR PRN Rx#:[id number] Phenylephrine HCl 50 mg 750 500 500 In Sodium Chloride 0.9% 250 ml @ 0 MCG/MIN IV TITR [facility] Rx#:[id number] Oral 0 Output: Gastric Drainage 150 50 Urine 100 10 Stool 0 Other: # Bowel Movements 0 0 Weight Source Bedscale Bedscale Active Medications: Current Medications Acetaminophen (Tylenol) 325 mg PO Q6H PRN PRN Reason: MILD PAIN/HEADACHE/TEMP > 101 Stop: 04/15/18 15:46 Albuterol/Ipratropium (Duoneb Neb) 3 ml HHN Q4HRT [facility] Stop: 04/15/18 22:59 Last Admin: 02/17/18 11:40 Dose: 3 ml Budesonide (Pulmicort) 0.5 mg HHN BIDRT [facility] Stop: 04/16/18 06:59 Last Admin: 02/17/18 07:13 Dose: 0.5 mg Norepinephrine Bitartrate 8 mg (/ Dextrose) 258 mls @ 15.48 mls/hr IV TITR PRN ; Protocol PRN Reason: BP MAINTENANCE (PER PROTOCOL) Stop: 04/15/18 15:03 Last Admin: 02/17/18 11:01 Dose: 30 mcg/min, 58.05 mls/hr Meropenem 500 mg/ Sodium (Chloride) 100 mls @ 100 mls/hr IV Q24H [facility] Stop: 04/15/18 19:59 Last Infusion: 02/16/18 21:18 Dose: Infused Phenylephrine HCl 50 mg/ (Sodium Chloride) 250 mls @ 0 mls/hr IV TITR [facility]; Protocol Stop: 04/15/18 16:44 Last Admin: 02/17/18 13:58 Dose: 180 mcg/min, 54 mls/hr Insulin Human Regular 100 (units/ Sodium Chloride) 101 mls @ 0 mls/hr IV TITR [facility]; Protocol Stop: 04/16/18 03:14 Last Titration: 02/17/18 14:08 Dose: 3 units/hr, 3.03 mls/hr Dopamine HCl/Dextrose (Dopamine) 400 mg in 250 mls @ 0 mls/hr IV TITR PRN; Protocol PRN Reason: BP MAINTENANCE (PER PROTOCOL) Stop: 04/15/18 20:18 Last Admin: 02/17/18 11:39 Dose: 10 mcg/kg/min, 30.277 mls/hr Azithromycin 500 mg/ Sodium (Chloride) 250 mls @ 250 mls/hr IV Q24HR [facility] Stop: 04/16/18 20:59 Last Infusion: 02/16/18 22:20 Dose: Infused Diltiazem HCl 125 mg/ Dextrose 125 mls @ 10 mls/hr IV TITR [facility]; Protocol Stop: 04/17/18 09:14 Last Admin: 02/17/18 09:32 Dose: 12.5 mg/hr, 12.5 mls/hr Dextrose/Sodium Chloride (D5-0.9%Ns) 1,000 mls @ 150 mls/hr IV .Q6H40M [facility] Stop: 04/17/18 14:44 Last Admin: 02/17/18 06:47 Dose: 150 mls/hr Lactulose (Cephulac) 30 gm PO TID [facility] Stop: 04/15/18 15:59 Last Admin: 02/17/18 14:07 Dose: Not Given Lorazepam (Ativan) 1 mg IVP Q4HR PRN; Protocol PRN Reason: Agitation Stop: 04/16/18 10:15 Last Admin: 02/17/18 11:34 Dose: 1 mg Methylprednisolone Sodium Succinate (Solu-Medrol) 40 mg IV Q12HR [facility] Stop: 04/16/18 20:59 Last Admin: 02/17/18 08:22 Dose: 40 mg Miscellaneous (Probiotic Screen) 1 ea MC PRN PRN PRN Reason: PROTOCOL Stop: 04/17/18 12:27 Ondansetron HCl (Zofran) 4 mg IVP Q6H PRN PRN Reason: Nausea / Vomiting Stop: 04/15/18 15:46 Pantoprazole Sodium (Protonix) 40 mg IVP BID [facility] Stop: 04/16/18 16:59 Last Admin: 02/17/18 08:21 Dose: 40 mg General: Other (comatose, on vent) HEENT: Atraumatic, Mucous membr. moist/pink Neck: Supple, +2 carotid pulse wo bruit Cardiovascular: Regular rate, Other (tachycardic) Lungs: Other (coarse rhonchi) Abdomen: Soft, no Tender, no Hepatomegaly, no Splenomegaly, no Rebound, no Mass , no Guarding Extremities: no Edema Neurological: Sensation intact Skin: no Rash Psych/Mental Status: Mood NL - Procedures Procedures: Procedures Procedure Code Date RESPIRATORY VENTILATION, LESS THAN 24 CONSECUTIVE HOURS [id number] 02/14/18 Assessment/Plan - Assessment Assessment: LELE-anuric acute cortical injury ALOC Shock septic Sepsis Cx UTI, Left HAP AG met Acid Severe Dehydration T2DM Hypothyroid Acute resp failure on Vent - Plan Plan: Lab - Result Diagrams 02/15/18 05:00 02/15/18 05:00 Current Medications Acetaminophen (Tylenol) 325 mg PO Q6H PRN PRN Reason: MILD PAIN/HEADACHE/TEMP > 101 Stop: 04/15/18 15:46 Albuterol/Ipratropium (Duoneb Neb) 3 ml HHN Q4HRT [facility] Stop: 04/15/18 22:59 Last Admin: 02/15/18 14:03 Dose: 3 ml Budesonide (Pulmicort) 0.5 mg HHN BIDRT [facility] Stop: 04/16/18 06:59 Last Admin: 02/15/18 07:15 Dose: 0.5 mg Norepinephrine Bitartrate 8 mg (/ Dextrose) 258 mls @ 15.48 mls/hr IV TITR PRN ; Protocol PRN Reason: BP MAINTENANCE (PER PROTOCOL) Stop: 04/15/18 15:03 Last Admin: 02/15/18 10:57 Dose: 30 mcg/min, 58.05 mls/hr Meropenem 500 mg/ Sodium (Chloride) 100 mls @ 100 mls/hr IV Q24H [facility] Stop: 04/15/18 19:59 Last Infusion: 02/14/18 21:32 Dose: Infused Phenylephrine HCl 50 mg/ (Sodium Chloride) 250 mls @ 0 mls/hr IV TITR [facility]; Protocol Stop: 04/15/18 16:44 Last Admin: 02/15/18 11:49 Dose: 180 mcg/min, 54 mls/hr Insulin Human Regular 100 (units/ Sodium Chloride) 101 mls @ 0 mls/hr IV TITR [facility]; Protocol Stop: 04/16/18 03:14 Sodium Bicarbonate 150 meq/ (Dextrose/Sodium Chloride) 1,150 mls @ 150 mls/hr IV .Q7H40M [facility] Stop: 04/15/18 18:59 Dopamine HCl/Dextrose (Dopamine) 400 mg in 250 mls @ 0 mls/hr IV TITR PRN; Protocol PRN Reason: BP MAINTENANCE (PER PROTOCOL) Stop: 04/15/18 20:18 Last Admin: 02/15/18 13:30 Dose: 30 mcg/kg/min, 90.831 mls/hr Albumin Human (Albutein 5%) 12.5 gm in 250 mls @ 62.5 mls/hr IV X1 ONE Stop: 02/15/18 14:20 Last Admin: 02/15/18 11:43 Dose: 62.5 mls/hr Dextrose/Sodium Chloride (D5-0.45ns) 1,000 mls @ 150 mls/hr IV .Q6H40M [facility] Stop: 04/16/18 11:30 Insulin Aspart (Novolog Insulin Sliding Scale) 0 units SUBQ ACHS [facility]; Protocol Stop: 04/15/18 16:29 Last Admin: 02/15/18 13:37 Dose: 12 units Lactulose (Cephulac) 30 gm PO TID [facility] Stop: 04/15/18 15:59 Last Admin: 02/15/18 09:00 Dose: Not Given Lorazepam (Ativan) 1 mg IVP Q4HR PRN; Protocol PRN Reason: Agitation Stop: 04/16/18 10:15 Methylprednisolone Sodium Succinate (Solu-Medrol) 40 mg IV Q6HR [facility] Stop: 02/19/18 22:59 Last Admin: 02/15/18 11:42 Dose: 40 mg Ondansetron HCl (Zofran) 4 mg IVP Q6H PRN PRN Reason: Nausea / Vomiting Stop: 04/15/18 15: Lab - Result Diagrams 02/17/18 04:15 02/17/18 04:15 still anuric LELE on max Levo, Edis, Dopa @ 12.5 continue IVF pH now @ 7.2, on vent administer 1 amp HC03 awaiting for cultures On Merrem poor prognosis Nutritional Asmnt/Malnutr-PDOC - Dietary Evaluation Malnutrition Findings (Please click <Entered> for more info): Nutritional Asmnt/Malnutrition Start: 02/16/18 16: 12 Text: Status: Complete Freq: Protocol: Document 02/16/18 16:17 [email or web address] (Rec: 02/16/18 16:35 [email or web address] [email or web address]) Nutritional Asmnt/Malnutrition Patient General Information Nutritional Screening High Risk Diagnosis septic shock, LELE Pertinent Medical Hx/Surgical Hx DM, BPH, THN, hypothyroidism, psychotic diorder, dementia, DJD Subjective Information Pt seen intubated on vent, on levophed. mark Avendano noted. Current Diet Order/ Nutrition Support no diet order Pertinent Medications D5-0.9%ns, dapamine, insulin, levophede, protonix Pertinent Labs 02/16 Na 129, cl 89, BUN 100, Cr 0.5, glucose 343, POC 280- 387, alb 2.6 Nutritional Hx/Data Height 1.83 m Height (Calculated Centimeters) 182.9 Current Weight (lbs) 90.718 kg Weight (Calculated Kilograms) 90.7 Weight (Calculated Grams) 14574.5 % Usual Body Weight 178 Body Mass Index (BMI) 27.1 Weight Status Overweight GI Symptoms GI Symptoms None Last BM none Difficult in: None Skin Integrity/Comment: scar to right wrist scars/scabs on bue and ble Current %PO Negligible < 25% Estimated Nutritional Goals BEE in Kcals: Using Current wt Calories/Kcals/Kg 25-30 Kcals Calculated 2049-7035 Protein: Using Current wt Protein g/k.8 monitor renal labs Protein Calculated 72 Fluid: ml 2275-2730ml (1ml/kcal) Nutritional Problem 1. Problem Problem altered nutrition related labs Etiology LELE, electrolytes imbalance Signs/Symptoms: BUN 100, Cr 9.5, phos 9.2, Ca 6.2, Mg 1.8, Na 129, Cl 89 Malnutrition Alert Is there a minimum of two criteria No selected? Query Text:Check all the applicable criteria. A minimum of two criteria are recommended for diagnosis of either severe or non-severe malnutrition. Malnutrition Related to Morbid Obesity Malnutrition related to morbid obesity No Intervention/Recommendation Comments 1. Monitor NPO status. 2. Monitor wt, labs and skin integrity 3. F/U as high risk in 2 days, 02/18 Expected Outcomes/Goals Expected Outcomes/Goals Wt stability, skin to remain intact, labs to approach WNL.
[2018-02-17] MEDS ORDERED: Diltiazem 5 mg/mL 25mL Vial IV ONE (17:38)
[2018-02-17] MEDS: Meropenem 500 MG in Sodium Chloride 0.9% 100 ML IV SCH (20:07)
[2018-02-17] MEDS: Chlorhexidine Gluconate 0.12% 15mL Mouthwash MM SCH (20:12)
[2018-02-17] MEDS: Azithromycin 500 MG in Sodium Chloride 0.9% 250 ML IV SCH (20:49)
[2018-02-18] MEDS: D5-0.9%NS 1,000 ML IV SCH ×2 (00:55→06:36)
[2018-02-18] MEDS: Phenylephrine HCl 50 MG in Sodium Chloride 0.9% 250 ML IV SCH ×2 (03:10→08:54)
[2018-02-18] MEDS: Albuterol/Ipratropium Neb 3 ML AERS HHN SCH ×3 (03:19→11:10)
[2018-02-18 05:47] LABS: ALB/GLOB RATIO 1.1 (1.0-1.8); ALBUMIN 2.1 gm/dL (4.2-5.5); ALKALINE PHOSPHATASE 65 U/L (34-104); ANION GAP 23.5 (7.0-16.0); BILIRUBIN,TOTAL 0.4 mg/dL (0.3-1.0); CARBON DIOXIDE 13.5 mEq/L (21.0-31.0); CHLORIDE 89 mEq/L (98-107); GLUCOSE 414 mg/dL (70-105); SGOT 41 U/L (13-39); SGPT/ALT 53 U/L (7-52); SODIUM SERUM 121 mEq/L (136-145)
[2018-02-18 05:58] LABS: BUN - UREA NITROGEN 100 mg/dL (7-25); CALCIUM SERUM 5.5 mg/dL (8.6-10.3); CREATININE - SERUM 9.1 mg/dL (0.7-1.3)
[2018-02-18] MEDS ORDERED: Calcium Gluconate 3 GM in Sodium Chloride 0.9% 100 ML IV ONE ×2 (06:12→08:15)
[2018-02-18 08:00] LABS: PLATELET COUNT 167 Th/cmm (150-400)
[2018-02-18] MEDS: Chlorhexidine Gluconate 0.12% 15mL Mouthwash MM SCH (08:00)
[2018-02-18 08:02] LABS: HEMOGLOBIN 7.8 gm/dL (12-16)
--- NOTE | 2018-02-18 08:02 | Diagnostic Imaging Report ---
Portable chest x-ray HISTORY: Shortness of breath Compared with prior exam of February 17, 2018, persistent diffuse bilateral infiltrates (right greater than left). Evidence for right pleural effusion. An endotracheal tube tip is approximately 3.5 cm above the leticia. IMPRESSION: 1. Persistent bilateral infiltrates along with a right pleural effusion.
[2018-02-18 08:08] LABS: MEAN CELL VOLUME 76.4 fl (80-99); MEAN CORPUSCULAR HEMOGLOBIN 25.6 pg (27.0-31.0); MEAN CORPUSCULAR HGB CONC 33.5 pg (28.0-36.0); MEAN PLATELET VOLUME 8.4 fl; RED BLOOD COUNT 2.92 Mil/cmm (3.80-5.80); RED CELL DISTRIBUTION WIDTH 19.2 % (11.5-20.0)
[2018-02-18 08:12] LABS: HEMATOCRIT 22.3 % (41.0-60); HEMOGLOBIN 7.5 gm/dL (12-16); WHITE BLOOD COUNT 21.7 Th/cmm (4.8-10.8)
[2018-02-18 08:31] LABS: BAND NEUTROPHILE 0 % (0-10); BASOPHIL 0 % (0-3); EOSINOPHIL 0 % (0-5); LYMPHOCYTE 4 % (20-50); NEUTROPHILS 94 % (40-80)
[2018-02-18 08:32] LABS: MONOCYTE 2 % (2-10); PLATELET ESTIMATE ADEQUATE (NORMAL)
--- NOTE | 2018-02-18 08:59 | GI Progress Note ---
Subjective - Review of Systems Service Date: 02/18/18 Subjective: Intubated, sedated. No overnight events. Hgb 7.5. NO overt GI bleed Objective - Results Result Diagrams: 02/18/18 07:50 02/18/18 04:50 Recent Labs: Laboratory Last Values WBC 21.7 Th/cmm (4.8-10.8) H* 02/18/18 07:50 RBC 2.92 Mil/cmm (3.80-5.80) L 02/18/18 07:50 Hgb 7.5 gm/dL (12-16) L* 02/18/18 07:50 Hct 22.3 % (41.0-60) L 02/18/18 07:50 MCV 76.4 fl (80-99) L 02/18/18 07:50 MCH 25.6 pg (27.0-31.0) L 02/18/18 07:50 MCHC Differential 33.5 pg (28.0-36.0) 02/18/18 07:50 RDW 19.2 % (11.5-20.0) 02/18/18 07:50 Plt Count 167 Th/cmm (150-400) 02/18/18 07:50 MPV 8.4 fl 02/18/18 07:50 Add Manual Diff YES 02/18/18 07:50 Neutrophils % BRAKE PRESS OPERATOR 02/17/18 04:15 Band Neutrophils % 0 % (0-10) 02/18/18 07:50 Lymphocytes % BRAKE PRESS OPERATOR 02/17/18 04:15 Monocytes % BRAKE PRESS OPERATOR 02/17/18 04:15 Eosinophils % BRAKE PRESS OPERATOR 02/17/18 04:15 Basophils % BRAKE PRESS OPERATOR 02/17/18 04:15 Neutrophils (Manual) 94 % (40-80) H 02/18/18 07:50 Lymphocytes 4 % (20-50) L 02/18/18 07:50 Monocytes 2 % (2-10) 02/18/18 07:50 Eosinophils 0 % (0-5) 02/18/18 07:50 Basophils 0 % (0-3) 02/18/18 07:50 Platelet Estimate ADEQUATE (NORMAL) 02/18/18 07:50 Poikilocytosis 2+ 02/15/18 05:00 Anisocytosis 1+ 02/15/18 05:00 Microcytosis 2+ 02/18/18 07:50 [place] Cells 2+ 02/15/18 05:00 RBC Morph Micro Appear ABNORMAL (NORMAL) 02/15/18 05:00 PT 15.3 SECONDS (9.5-11.5) H 02/16/18 04:05 INR 1.50 (0.5-1.4) H 02/16/18 04:05 PTT (Actin FS) 37.6 SECONDS (26.0-38.0) 02/16/18 04:05 Specimen Source ARTERIAL 02/17/18 05:00 Sample Site Left Radial 02/17/18 05:00 pH 7.18 (7.35-7.45) L* 02/17/18 05:00 pCO2 53.0 mmHg (35.0-45.0) H 02/17/18 05:00 pO2 50.0 mmHg (80.0-100.0) L 02/17/18 05:00 HCO3 17.5 mEq/L (20.0-26.0) L 02/17/18 05:00 Base Excess -8.8 mEq/L (-3.0-3.0) L 02/17/18 05:00 O2 Saturation 74.0 % (92.0-100.0) L 02/17/18 05:00 [place]field Test Positive 02/17/18 05:00 Vent Rate 18 02/17/18 05:00 Inspired O2 100 02/17/18 05:00 Tidal Volume 400 02/17/18 05:00 PEEP 5 02/17/18 05:00 Pressure (ins/psv/peep) N/A 02/17/18 05:00 Critical Value J.Y 02/17/18 05:00 Sodium 121 mEq/L (136-145) L 02/18/18 04:50 Potassium 5.0 mEq/L (3.5-5.1) 02/18/18 04:50 Chloride 89 mEq/L (98-107) L 02/18/18 04:50 Carbon Dioxide 13.5 mEq/L (21.0-31.0) L 02/18/18 04:50 Anion Gap 23.5 (7.0-16.0) H 02/18/18 04:50 BUN 100 mg/dL (7-25) H* 02/18/18 04:50 Creatinine 9.1 mg/dL (0.7-1.3) H* 02/18/18 04:50 Est GFR ( Amer) TNP 02/18/18 04:50 Est GFR (Non-Af Amer) TNP 02/18/18 04:50 BUN/Creatinine Ratio 11.0 02/18/18 04:50 Glucose 414 mg/dL (70-105) H 02/18/18 04:50 POC Glucose 344 MG/DL (70 - 105) H 02/18/18 08:20 Whole Bld Lactic Acid 5.80 mmol/L (0.60-1.99) H* 02/16/18 07:30 Calcium 5.5 mg/dL (8.6-10.3) L* 02/18/18 04:50 Phosphorus 9.4 mg/dL (2.5-5.0) H* 02/17/18 04:15 Magnesium 2.0 mg/dL (1.9-2.7) 02/17/18 04:15 Total Bilirubin 0.4 mg/dL (0.3-1.0) 02/18/18 04:50 Direct Bilirubin 0.15 mg/dL (0.0-0.2) 02/16/18 04:05 AST 41 U/L (13-39) H 02/18/18 04:50 ALT 53 U/L (7-52) H 02/18/18 04:50 Alkaline Phosphatase 65 U/L (34-104) 02/18/18 04:50 Ammonia 50 umol/L (16-53) 02/17/18 04:15 Troponin I 2.81 ng/mL (0.01-0.05) H* D 02/16/18 04:05 B-Natriuretic Peptide 748.0 pg/mL (5.0-100.0) H 02/16/18 04:05 Total Protein 4.0 gm/dL (6.0-8.3) L 02/18/18 04:50 Albumin 2.1 gm/dL (4.2-5.5) L 02/18/18 04:50 Globulin 1.9 gm/dL 02/18/18 04:50 Albumin/Globulin Ratio 1.1 (1.0-1.8) 02/18/18 04:50 Amylase 98 U/L (29-103) 02/17/18 04:15 Lipase 111 U/L (11-82) H 02/16/18 04:05 Free T4 0.39 ng/dL (0.82-1.77) L 02/15/18 05:00 Free T3 0.8 pg/mL (2.0-4.4) L 02/15/18 05:00 TSH 3.05 uIU/ml (0.34-5.60) 02/15/18 05:00 Urine Source POOLE PORT 02/14/18 18:35 Urine Color YELLOW 02/14/18 18:35 Urine Clarity CLOUDY (CLEAR) 02/14/18 18:35 Urine pH 6.0 (4.6 - 8.0) 02/14/18 18:35 Ur Specific [place] 1.025 (1.005-1.030) 02/14/18 18:35 Urine Protein >300 mg/dL (NEGATIVE) H 02/14/18 18:35 Urine Glucose (UA) 100 mg/dL (NEGATIVE) H 02/14/18 18:35 Urine Ketones 15 mg/dL (NEGATIVE) H 02/14/18 18:35 Urine Blood LARGE (NEGATIVE) H 02/14/18 18:35 Urine Nitrate NEGATIVE (NEGATIVE) 02/14/18 18:35 Urine Bilirubin NEGATIVE (NEGATIVE) 02/14/18 18:35 Urine Urobilinogen 0.2 E.U./dL (0.2 - 1.0) 02/14/18 18:35 Ur Leukocyte Esterase SMALL (NEGATIVE) H 02/14/18 18:35 Urine RBC 10-25 /hpf (0-5) H 02/14/18 18:35 Urine WBC 6-10 /hpf (0-5) 02/14/18 18:35 Ur Epithelial Cells FEW /lpf (FEW) 02/14/18 18:35 Urine Bacteria 1+ /hpf (NONE SEEN) H 02/14/18 18:35 Random Vancomycin 12.4 ug/mL (5.0-40.0) 02/16/18 04:05 - Physical Exam Vitals and I&O: Vital Signs Temp 98.8 F 02/18/18 00:00 Pulse 99 02/18/18 06:45 Resp 19 02/18/18 06:00 BP 99/40 02/18/18 06:45 Pulse Ox 88 02/18/18 06:39 Intake & Output 02/17/18 02/18/18 02/18/18 18:59 06:59 18:59 Intake Total 2608.050 3996.117 125.5 Output Total 60 Balance 2548.050 3996.117 125.5 Weight (lbs) 99.337 kg Intake: Intake, IV Amount 2608.050 3996.117 125.5 Azithromycin 500 mg In 250 Sodium Chloride 0.9% 250 ml @ 250 mls/hr IV Q24HR [facility] Rx#:[id number] D5-0.9%Ns 1,000 ml @ 150 1000 1852.5 mls/hr IV .Q6H40M [facility] Rx# :[id number] DOPamine 400 mg In 250 ml 157.95 297.434 @ Per Protocol IV TITR PRN Rx#:[id number] Diltiazem 125 mg In 202.375 64.792 Dextrose 5% 100 ml @ 10 mls/hr IV TITR [facility] Rx#: [id number] Insulin Human Regular 100 44.525 60.061 units In Sodium Chloride 0.9% 100 ml @ 0 UNITS/HR IV TITR [facility] Rx#: [id number] Meropenem 500 mg In 100 Sodium Chloride 0.9% 100 ml @ 100 mls/hr IV Q24H [facility] Rx#:[id number] Norepinephrine 8 mg In 516 757.23 Dextrose 5% 250 ml @ 8 MCG/MIN 15.48 mls/hr IV TITR PRN Rx#:[id number] Phenylephrine HCl 50 mg 687.2 614.1 125.5 In Sodium Chloride 0.9% 250 ml @ 0 MCG/MIN IV TITR [facility] Rx#:[id number] Output: Gastric Drainage 50 Urine 10 Other: # Bowel Movements 0 Weight Source Bedscale Active Medications: Current Medications Acetaminophen (Tylenol) 325 mg PO Q6H PRN PRN Reason: MILD PAIN/HEADACHE/TEMP > 101 Stop: 04/15/18 15:46 Albuterol/Ipratropium (Duoneb Neb) 3 ml HHN Q4HRT [facility] Stop: 04/15/18 22:59 Last Admin: 02/18/18 06:39 Dose: 3 ml Budesonide (Pulmicort) 0.5 mg HHN BIDRT [facility] Stop: 04/16/18 06:59 Last Admin: 02/17/18 19:10 Dose: 0.5 mg Chlorhexidine Gluconate (Peridex) 15 ml MM 08,1999 [facility] Stop: 04/18/18 19:59 Last Admin: 02/17/18 20:12 Dose: 15 ml Norepinephrine Bitartrate 8 mg (/ Dextrose) 258 mls @ 15.48 mls/hr IV TITR PRN ; Protocol PRN Reason: BP MAINTENANCE (PER PROTOCOL) Stop: 04/15/18 15:03 Last Admin: 02/18/18 04:42 Dose: 30 mcg/min, 58.05 mls/hr Meropenem 500 mg/ Sodium (Chloride) 100 mls @ 100 mls/hr IV Q24H [facility] Stop: 04/15/18 19:59 Last Infusion: 02/17/18 21:07 Dose: Infused Phenylephrine HCl 50 mg/ (Sodium Chloride) 250 mls @ 0 mls/hr IV TITR [facility]; Protocol Stop: 04/15/18 16:44 Last Admin: 02/18/18 08:54 Dose: 180 mcg/min, 54 mls/hr Insulin Human Regular 100 (units/ Sodium Chloride) 101 mls @ 0 mls/hr IV TITR [facility]; Protocol Stop: 04/16/18 03:14 Last Titration: 02/18/18 06:53 Dose: 5 units/hr, 5.05 mls/hr Dopamine HCl/Dextrose (Dopamine) 400 mg in 250 mls @ 0 mls/hr IV TITR PRN; Protocol PRN Reason: BP MAINTENANCE (PER PROTOCOL) Stop: 04/15/18 20:18 Last Titration: 02/18/18 00:00 Dose: 0 mcg/kg/min, 0 mls/hr Azithromycin 500 mg/ Sodium (Chloride) 250 mls @ 250 mls/hr IV Q24HR [facility] Stop: 04/16/18 20:59 Last Infusion: 02/17/18 21:49 Dose: Infused Diltiazem HCl 125 mg/ Dextrose 125 mls @ 10 mls/hr IV TITR [facility]; Protocol Stop: 04/17/18 09:14 Last Titration: 02/18/18 02:00 Dose: 0 mg/hr, 0 mls/hr Dextrose/Sodium Chloride (D5-0.9%Ns) 1,000 mls @ 150 mls/hr IV .Q6H40M [facility] Stop: 04/17/18 14:44 Last Admin: 02/18/18 06:36 Dose: 150 mls/hr Calcium Gluconate 3 gm/ Sodium (Chloride) 130 mls @ 43 mls/hr IV X1 ONE Stop: 02/18/18 11:16 Lactulose (Cephulac) 30 gm PO TID [facility] Stop: 04/15/18 15:59 Last Admin: 02/17/18 20:51 Dose: Not Given Lorazepam (Ativan) 1 mg IVP Q4HR PRN; Protocol PRN Reason: Agitation Stop: 04/16/18 10:15 Last Admin: 02/18/18 04:28 Dose: 1 mg Methylprednisolone Sodium Succinate (Solu-Medrol) 40 mg IV Q12HR [facility] Stop: 04/16/18 20:59 Last Admin: 02/17/18 20:51 Dose: 40 mg Miscellaneous (Probiotic Screen) 1 ea MC PRN PRN PRN Reason: PROTOCOL Stop: 04/17/18 12:27 Ondansetron HCl (Zofran) 4 mg IVP Q6H PRN PRN Reason: Nausea / Vomiting Stop: 04/15/18 15:46 Pantoprazole Sodium (Protonix) 40 mg IVP BID [facility] Stop: 04/16/18 16:59 Last Admin: 02/17/18 17:30 Dose: 40 mg General: Other (comatose, on vent) HEENT: Atraumatic, Mucous membr. moist/pink Neck: Supple, +2 carotid pulse wo bruit Cardiovascular: Regular rate, Other (tachycardic) Lungs: Other (coarse rhonchi) Abdomen: Soft, no Tender, no Hepatomegaly, no Splenomegaly, no Rebound, no Mass , no Guarding Extremities: no Edema Neurological: Sensation intact Skin: no Rash - Procedures Procedures: Procedures Procedure Code Date RESPIRATORY VENTILATION, 24-96 CONSECUTIVE HOURS [id number] 02/14/18 Assessment/Plan - Assessment Assessment: 72 yo male with anemia, vent dependant respiratory failure, ftt and critically ill 1. Anemia 2. VDRF 3. Critically ill Plan: - Will eventually need EGD/Colonoscopy once more stable to further investigate anemia. This will need to wait for pt to be stabilzed, or can be done more acutely if he develops acute and overt GI bleed - Currently risks outweigh benefits of the procedure - trend hgb - PPI - Will follow
[2018-02-18] MEDS: Lactulose 10 Gm/15 mL 30mL UDC PO SCH (09:25)
[2018-02-18] MEDS: methylPREDNISolone SS 40 mg Vial IV SCH (09:41)
[2018-02-18 09:42] LABS: pH 7.12 (7.35-7.45)
--- NOTE | 2018-02-18 10:57 | Progress Notes ---
DATE: 02/18/2018 THE PATIENT'S ID: A 72-year-old male. SUBJECTIVE: The patient is seen and examined in ICU. The patient is lying in the bed. The patient is responds to painful stimuli, still required significant amount of pressor agents and look for full vent support at this time. PHYSICAL EXAMINATION: VITAL SIGNS: Temperature 98, pulse is 104, respiratory rate is 24, blood pressure is 103/43. HEENT: Oral endotracheal tube noted. NECK: Supple. HEART: Regular. LUNGS: Has diffuse expiratory wheezing. ABDOMEN: Distended. Bowel sounds are present. EXTREMITIES: +1 edema of the upper and lower extremity noted. AVAILABLE DIAGNOSTIC DATA: Chest x-ray has bilateral infiltrate throughout the right and left lung. LABORATORY DATA: White count of 17.8, hemoglobin 7.8, platelet count of 156, pH of 7.18, pCO2 of 53, pO2 of 50, bicarbonate of 17.5. Sodium 124, potassium 4.6, BUN 19.2, anion gap of 21.4, BUN and creatinine is 97 and 9.2, phosphorus 9.5. Glucoscan is reviewed. CLINICAL IMPRESSIONS: 1. Septic shock. 2. Acute respiratory failure, required endotracheal intubation. 3. Acute respiratory distress syndrome. 4. Acute renal failure secondary to acute tubular necrosis. 5. Poor prognosis. 6. Electrolyte imbalance. 7. Metabolic acidosis. PLAN: I did discuss with the briquette machine operator as well as nursing staff about the treatment plan. The patient's overall prognosis is very poor at this time and I did have a discussion with the patient's , Alie feels over the phone, phone number [phone] about the patient's underlying diagnosis as well as underlying treatment plan as well as alternate treatment plan, which including the hospice and withdrawing the life support. The patient's wishes to talk to the social media analyst and correctional casework specialist and make the right decision. The patient meanwhile will receive the same therapy as the patient is getting all questions have been answered. [facility]# [id number]
[2018-02-18] MEDS: DOPamine 400 MG/250 ML BAG IV PRN (13:09)
--- NOTE | 2018-02-18 14:19 | General Progress Note ---
Subjective - Review of Systems Service Date: 02/18/18 Subjective: comatose, on vent Objective - Results Result Diagrams: 02/18/18 07:50 02/18/18 04:50 Recent Labs: Laboratory Last Values WBC 21.7 Th/cmm (4.8-10.8) H* 02/18/18 07:50 RBC 2.92 Mil/cmm (3.80-5.80) L 02/18/18 07:50 Hgb 7.5 gm/dL (12-16) L* 02/18/18 07:50 Hct 22.3 % (41.0-60) L 02/18/18 07:50 MCV 76.4 fl (80-99) L 02/18/18 07:50 MCH 25.6 pg (27.0-31.0) L 02/18/18 07:50 MCHC Differential 33.5 pg (28.0-36.0) 02/18/18 07:50 RDW 19.2 % (11.5-20.0) 02/18/18 07:50 Plt Count 167 Th/cmm (150-400) 02/18/18 07:50 MPV 8.4 fl 02/18/18 07:50 Add Manual Diff YES 02/18/18 07:50 Neutrophils % LIABILITY CLAIMS MANAGER 02/17/18 04:15 Band Neutrophils % 0 % (0-10) 02/18/18 07:50 Lymphocytes % LIABILITY CLAIMS MANAGER 02/17/18 04:15 Monocytes % LIABILITY CLAIMS MANAGER 02/17/18 04:15 Eosinophils % LIABILITY CLAIMS MANAGER 02/17/18 04:15 Basophils % LIABILITY CLAIMS MANAGER 02/17/18 04:15 Neutrophils (Manual) 94 % (40-80) H 02/18/18 07:50 Lymphocytes 4 % (20-50) L 02/18/18 07:50 Monocytes 2 % (2-10) 02/18/18 07:50 Eosinophils 0 % (0-5) 02/18/18 07:50 Basophils 0 % (0-3) 02/18/18 07:50 Platelet Estimate ADEQUATE (NORMAL) 02/18/18 07:50 Poikilocytosis 2+ 02/15/18 05:00 Anisocytosis 1+ 02/15/18 05:00 Microcytosis 2+ 02/18/18 07:50 Rigo Cells 2+ 02/15/18 05:00 RBC Morph Micro Appear ABNORMAL (NORMAL) 02/15/18 05:00 PT 15.3 SECONDS (9.5-11.5) H 02/16/18 04:05 INR 1.50 (0.5-1.4) H 02/16/18 04:05 PTT (Actin FS) 37.6 SECONDS (26.0-38.0) 02/16/18 04:05 Specimen Source Arterial 02/18/18 09:30 Sample Site LB 02/18/18 09:30 pH 7.12 (7.35-7.45) L* 02/18/18 09:30 pCO2 59.0 mmHg (35.0-45.0) H* 02/18/18 09:30 pO2 43.0 mmHg (80.0-100.0) L* 02/18/18 09:30 HCO3 15.8 mEq/L (20.0-26.0) L 02/18/18 09:30 Base Excess -10.5 mEq/L (-3.0-3.0) L 02/18/18 09:30 O2 Saturation 60.0 % (92.0-100.0) L 02/18/18 09:30 Garfield Test NA 02/18/18 09:30 Vent Rate 22 02/18/18 09:30 Inspired O2 100 02/18/18 09:30 Tidal Volume 400 02/18/18 09:30 PEEP 5 02/18/18 09:30 Pressure (ins/psv/peep) NA 02/18/18 09:30 Critical Value E.GARCIA 02/18/18 09:30 Sodium 121 mEq/L (136-145) L 02/18/18 04:50 Potassium 5.0 mEq/L (3.5-5.1) 02/18/18 04:50 Chloride 89 mEq/L (98-107) L 02/18/18 04:50 Carbon Dioxide 13.5 mEq/L (21.0-31.0) L 02/18/18 04:50 Anion Gap 23.5 (7.0-16.0) H 02/18/18 04:50 BUN 100 mg/dL (7-25) H* 02/18/18 04:50 Creatinine 9.1 mg/dL (0.7-1.3) H* 02/18/18 04:50 Est GFR ( Amer) TNP 02/18/18 04:50 Est GFR (Non-Af Amer) TNP 02/18/18 04:50 BUN/Creatinine Ratio 11.0 02/18/18 04:50 Glucose 414 mg/dL (70-105) H 02/18/18 04:50 POC Glucose 345 MG/DL (70 - 105) H 02/18/18 13:05 Whole Bld Lactic Acid 5.80 mmol/L (0.60-1.99) H* 02/16/18 07:30 Calcium 5.5 mg/dL (8.6-10.3) L* 02/18/18 04:50 Phosphorus 9.4 mg/dL (2.5-5.0) H* 02/17/18 04:15 Magnesium 2.0 mg/dL (1.9-2.7) 02/17/18 04:15 Total Bilirubin 0.4 mg/dL (0.3-1.0) 02/18/18 04:50 Direct Bilirubin 0.15 mg/dL (0.0-0.2) 02/16/18 04:05 AST 41 U/L (13-39) H 02/18/18 04:50 ALT 53 U/L (7-52) H 02/18/18 04:50 Alkaline Phosphatase 65 U/L (34-104) 02/18/18 04:50 Ammonia 50 umol/L (16-53) 02/17/18 04:15 Troponin I 2.81 ng/mL (0.01-0.05) H* D 02/16/18 04:05 B-Natriuretic Peptide 748.0 pg/mL (5.0-100.0) H 02/16/18 04:05 Total Protein 4.0 gm/dL (6.0-8.3) L 02/18/18 04:50 Albumin 2.1 gm/dL (4.2-5.5) L 02/18/18 04:50 Globulin 1.9 gm/dL 02/18/18 04:50 Albumin/Globulin Ratio 1.1 (1.0-1.8) 02/18/18 04:50 Amylase 98 U/L (29-103) 02/17/18 04:15 Lipase 111 U/L (11-82) H 02/16/18 04:05 Free T4 0.39 ng/dL (0.82-1.77) L 02/15/18 05:00 Free T3 0.8 pg/mL (2.0-4.4) L 02/15/18 05:00 TSH 3.05 uIU/ml (0.34-5.60) 02/15/18 05:00 Urine Source POOLE PORT 02/14/18 18:35 Urine Color YELLOW 02/14/18 18:35 Urine Clarity CLOUDY (CLEAR) 02/14/18 18:35 Urine pH 6.0 (4.6 - 8.0) 02/14/18 18:35 Ur Specific Skillman 1.025 (1.005-1.030) 02/14/18 18:35 Urine Protein >300 mg/dL (NEGATIVE) H 02/14/18 18:35 Urine Glucose (UA) 100 mg/dL (NEGATIVE) H 02/14/18 18:35 Urine Ketones 15 mg/dL (NEGATIVE) H 02/14/18 18:35 Urine Blood LARGE (NEGATIVE) H 02/14/18 18:35 Urine Nitrate NEGATIVE (NEGATIVE) 02/14/18 18:35 Urine Bilirubin NEGATIVE (NEGATIVE) 02/14/18 18:35 Urine Urobilinogen 0.2 E.U./dL (0.2 - 1.0) 02/14/18 18:35 Ur Leukocyte Esterase SMALL (NEGATIVE) H 02/14/18 18:35 Urine RBC 10-25 /hpf (0-5) H 02/14/18 18:35 Urine WBC 6-10 /hpf (0-5) 02/14/18 18:35 Ur Epithelial Cells FEW /lpf (FEW) 02/14/18 18:35 Urine Bacteria 1+ /hpf (NONE SEEN) H 02/14/18 18:35 Random Vancomycin 12.4 ug/mL (5.0-40.0) 02/16/18 04:05 - Physical Exam Vitals and I&O: Vital Signs Temp 97 F 02/18/18 12:00 Pulse 102 02/18/18 14:00 Resp 29 02/18/18 14:00 BP 92/44 02/18/18 14:00 Pulse Ox 100 02/18/18 14:00 Intake & Output 02/17/18 02/18/18 02/18/18 18:59 06:59 18:59 Intake Total 2608.050 3996.117 308.093 Output Total 60 Balance 2548.050 3996.117 308.093 Weight (lbs) 99.337 kg Intake: Intake, IV Amount 2608.050 3996.117 308.093 Azithromycin 500 mg In 250 Sodium Chloride 0.9% 250 ml @ 250 mls/hr IV Q24HR [facility] Rx#:[id number] D5-0.9%Ns 1,000 ml @ 150 1000 1852.5 mls/hr IV .Q6H40M [facility] Rx# :[id number] DOPamine 400 mg In 250 ml 157.95 297.434 152.899 @ Per Protocol IV TITR PRN Rx#:[id number] Diltiazem 125 mg In 202.375 64.792 Dextrose 5% 100 ml @ 10 mls/hr IV TITR [facility] Rx#: [id number] Insulin Human Regular 100 44.525 60.061 29.694 units In Sodium Chloride 0.9% 100 ml @ 0 UNITS/HR IV TITR [facility] Rx#: [id number] Meropenem 500 mg In 100 Sodium Chloride 0.9% 100 ml @ 100 mls/hr IV Q24H [facility] Rx#:[id number] Norepinephrine 8 mg In 516 757.23 Dextrose 5% 250 ml @ 8 MCG/MIN 15.48 mls/hr IV TITR PRN Rx#:[id number] Phenylephrine HCl 50 mg 687.2 614.1 125.5 In Sodium Chloride 0.9% 250 ml @ 0 MCG/MIN IV TITR [facility] Rx#:[id number] Output: Gastric Drainage 50 Urine 10 Other: # Bowel Movements 0 Weight Source Bedscale Active Medications: Current Medications Acetaminophen (Tylenol) 325 mg PO Q6H PRN PRN Reason: MILD PAIN/HEADACHE/TEMP > 101 Stop: 04/15/18 15:46 Albuterol/Ipratropium (Duoneb Neb) 3 ml HHN Q4HRT [facility] Stop: 04/15/18 22:59 Last Admin: 02/18/18 11:10 Dose: 3 ml Budesonide (Pulmicort) 0.5 mg HHN BIDRT [facility] Stop: 04/16/18 06:59 Last Admin: 02/17/18 19:10 Dose: 0.5 mg Chlorhexidine Gluconate (Peridex) 15 ml MM 0800,1999 [facility] Stop: 04/18/18 19:59 Last Admin: 02/17/18 20:12 Dose: 15 ml Norepinephrine Bitartrate 8 mg (/ Dextrose) 258 mls @ 15.48 mls/hr IV TITR PRN ; Protocol PRN Reason: BP MAINTENANCE (PER PROTOCOL) Stop: 04/15/18 15:03 Last Admin: 02/18/18 04:42 Dose: 30 mcg/min, 58.05 mls/hr Meropenem 500 mg/ Sodium (Chloride) 100 mls @ 100 mls/hr IV Q24H [facility] Stop: 04/15/18 19:59 Last Infusion: 02/17/18 21:07 Dose: Infused Phenylephrine HCl 50 mg/ (Sodium Chloride) 250 mls @ 0 mls/hr IV TITR [facility]; Protocol Stop: 04/15/18 16:44 Last Admin: 02/18/18 08:54 Dose: 180 mcg/min, 54 mls/hr Insulin Human Regular 100 (units/ Sodium Chloride) 101 mls @ 0 mls/hr IV TITR [facility]; Protocol Stop: 04/16/18 03:14 Last Titration: 02/18/18 13:20 Dose: 5 units/hr, 5.05 mls/hr Dopamine HCl/Dextrose (Dopamine) 400 mg in 250 mls @ 0 mls/hr IV TITR PRN; Protocol PRN Reason: BP MAINTENANCE (PER PROTOCOL) Stop: 04/15/18 20:18 Last Admin: 02/18/18 13:09 Dose: 30 mcg/kg/min, 90.831 mls/hr Azithromycin 500 mg/ Sodium (Chloride) 250 mls @ 250 mls/hr IV Q24HR [facility] Stop: 04/16/18 20:59 Last Infusion: 02/17/18 21:49 Dose: Infused Diltiazem HCl 125 mg/ Dextrose 125 mls @ 10 mls/hr IV TITR [facility]; Protocol Stop: 04/17/18 09:14 Last Titration: 02/18/18 02:00 Dose: 0 mg/hr, 0 mls/hr Dextrose/Sodium Chloride (D5-0.9%Ns) 1,000 mls @ 150 mls/hr IV .Q6H40M [facility] Stop: 04/17/18 14:44 Last Admin: 02/18/18 06:36 Dose: 150 mls/hr Morphine Sulfate 50 mg/ Sodium (Chloride) 50 mls @ 1 mls/hr IV TITR [facility] Stop: 04/19/18 14:59 Lactulose (Cephulac) 30 gm PO TID [facility] Stop: 04/15/18 15:59 Last Admin: 02/18/18 09:25 Dose: Not Given Lorazepam (Ativan) 1 mg IVP Q4HR PRN; Protocol PRN Reason: Agitation Stop: 04/16/18 10:15 Last Admin: 02/18/18 04:28 Dose: 1 mg Methylprednisolone Sodium Succinate (Solu-Medrol) 40 mg IV Q12HR [facility] Stop: 04/16/18 20:59 Last Admin: 02/18/18 09:41 Dose: 40 mg Miscellaneous (Probiotic Screen) 1 ea MC PRN PRN PRN Reason: PROTOCOL Stop: 04/17/18 12:27 Ondansetron HCl (Zofran) 4 mg IVP Q6H PRN PRN Reason: Nausea / Vomiting Stop: 04/15/18 15:46 Pantoprazole Sodium (Protonix) 40 mg IVP BID [facility] Stop: 04/16/18 16:59 Last Admin: 02/18/18 09:40 Dose: 40 mg General: Other (comatose, on vent) HEENT: Atraumatic, Mucous membr. moist/pink Neck: Supple, +2 carotid pulse wo bruit Cardiovascular: Regular rate, Other (tachycardic) Lungs: Other (coarse rhonchi) Abdomen: Soft, no Tender, no Hepatomegaly, no Splenomegaly, no Rebound, no Mass , no Guarding Extremities: no Edema Neurological: Sensation intact Skin: no Rash Psych/Mental Status: Mood NL - Procedures Procedures: Procedures Procedure Code Date RESPIRATORY VENTILATION, 24-96 CONSECUTIVE HOURS [id number] 02/14/18 Assessment/Plan - Assessment Assessment: LELE-anuric acute cortical injury ALOC Shock septic Sepsis Cx UTI, Left HAP AG met Acid Severe Dehydration T2DM Hypothyroid Acute resp failure on Vent - Plan Plan: Lab - Result Diagrams 02/15/18 05:00 02/15/18 05:00 Current Medications Acetaminophen (Tylenol) 325 mg PO Q6H PRN PRN Reason: MILD PAIN/HEADACHE/TEMP > 101 Stop: 04/15/18 15:46 Albuterol/Ipratropium (Duoneb Neb) 3 ml HHN Q4HRT [facility] Stop: 04/15/18 22:59 Last Admin: 02/15/18 14:03 Dose: 3 ml Budesonide (Pulmicort) 0.5 mg HHN BIDRT [facility] Stop: 04/16/18 06:59 Last Admin: 02/15/18 07:15 Dose: 0.5 mg Norepinephrine Bitartrate 8 mg (/ Dextrose) 258 mls @ 15.48 mls/hr IV TITR PRN ; Protocol PRN Reason: BP MAINTENANCE (PER PROTOCOL) Stop: 04/15/18 15:03 Last Admin: 02/15/18 10:57 Dose: 30 mcg/min, 58.05 mls/hr Meropenem 500 mg/ Sodium (Chloride) 100 mls @ 100 mls/hr IV Q24H [facility] Stop: 04/15/18 19:59 Last Infusion: 02/14/18 21:32 Dose: Infused Phenylephrine HCl 50 mg/ (Sodium Chloride) 250 mls @ 0 mls/hr IV TITR [facility]; Protocol Stop: 04/15/18 16:44 Last Admin: 02/15/18 11:49 Dose: 180 mcg/min, 54 mls/hr Insulin Human Regular 100 (units/ Sodium Chloride) 101 mls @ 0 mls/hr IV TITR [facility]; Protocol Stop: 04/16/18 03:14 Sodium Bicarbonate 150 meq/ (Dextrose/Sodium Chloride) 1,150 mls @ 150 mls/hr IV .Q7H40M [facility] Stop: 04/15/18 18:59 Dopamine HCl/Dextrose (Dopamine) 400 mg in 250 mls @ 0 mls/hr IV TITR PRN; Protocol PRN Reason: BP MAINTENANCE (PER PROTOCOL) Stop: 04/15/18 20:18 Last Admin: 02/15/18 13:30 Dose: 30 mcg/kg/min, 90.831 mls/hr Albumin Human (Albutein 5%) 12.5 gm in 250 mls @ 62.5 mls/hr IV X1 ONE Stop: 02/15/18 14:20 Last Admin: 02/15/18 11:43 Dose: 62.5 mls/hr Dextrose/Sodium Chloride (D5-0.45ns) 1,000 mls @ 150 mls/hr IV .Q6H40M [facility] Stop: 04/16/18 11:30 Insulin Aspart (Novolog Insulin Sliding Scale) 0 units SUBQ ACHS [facility]; Protocol Stop: 04/15/18 16:29 Last Admin: 02/15/18 13:37 Dose: 12 units Lactulose (Cephulac) 30 gm PO TID [facility] Stop: 04/15/18 15:59 Last Admin: 02/15/18 09:00 Dose: Not Given Lorazepam (Ativan) 1 mg IVP Q4HR PRN; Protocol PRN Reason: Agitation Stop: 04/16/18 10:15 Methylprednisolone Sodium Succinate (Solu-Medrol) 40 mg IV Q6HR [facility] Stop: 02/19/18 22:59 Last Admin: 02/15/18 11:42 Dose: 40 mg Ondansetron HCl (Zofran) 4 mg IVP Q6H PRN PRN Reason: Nausea / Vomiting Stop: 04/15/18 15: Lab - Result Diagrams 02/18/18 07:50 02/18/18 04:50 still anuric LELE on max Levo, Edis, Dopa @ 12.5 continue IVF pH now @ 7.2, on vent administer 1 amp HC03 awaiting for cultures On Merrem poor prognosis for terminal extubation Nutritional Asmnt/Malnutr-PDOC - Dietary Evaluation Malnutrition Findings (Please click <Entered> for more info): Nutritional Asmnt/Malnutrition Start: 02/16/18 16: 12 Text: Status: Complete Freq: Protocol: Document 02/16/18 16:17 LCHENG (Rec: 02/16/18 16:35 [email or web address] [email or web address]) Nutritional Asmnt/Malnutrition Patient General Information Nutritional Screening High Risk Diagnosis septic shock, LELE Pertinent Medical Hx/Surgical Hx DM, BPH, THN, hypothyroidism, psychotic diorder, dementia, DJD Subjective Information Pt seen intubated on vent, on levophed. mark Avendano noted. Current Diet Order/ Nutrition Support no diet order Pertinent Medications D5-0.9%ns, dapamine, insulin, levophede, protonix Pertinent Labs 02/16 Na 129, cl 89, BUN 100, Cr 0.5, glucose 343, POC 280- 387, alb 2.6 Nutritional Hx/Data Height 1.83 m Height (Calculated Centimeters) 182.9 Current Weight (lbs) 90.718 kg Weight (Calculated Kilograms) 90.7 Weight (Calculated Grams) 42018.5 % Usual Body Weight 178 Body Mass Index (BMI) 27.1 Weight Status Overweight GI Symptoms GI Symptoms None Last BM none Difficult in: None Skin Integrity/Comment: scar to right wrist scars/scabs on bue and ble Current %PO Negligible < 25% Estimated Nutritional Goals BEE in Kcals: Using Current wt Calories/Kcals/Kg 25-30 Kcals Calculated 3699-4081 Protein: Using Current wt Protein g/k.8 monitor renal labs Protein Calculated 72 Fluid: ml 2275-2730ml (1ml/kcal) Nutritional Problem 1. Problem Problem altered nutrition related labs Etiology LELE, electrolytes imbalance Signs/Symptoms: BUN 100, Cr 9.5, phos 9.2, Ca 6.2, Mg 1.8, Na 129, Cl 89 Malnutrition Alert Is there a minimum of two criteria No selected? Query Text:Check all the applicable criteria. A minimum of two criteria are recommended for diagnosis of either severe or non-severe malnutrition. Malnutrition Related to Morbid Obesity Malnutrition related to morbid obesity No Intervention/Recommendation Comments 1. Monitor NPO status. 2. Monitor wt, labs and skin integrity 3. F/U as high risk in 2 days, 02/18 Expected Outcomes/Goals Expected Outcomes/Goals Wt stability, skin to remain intact, labs to approach WNL.
--- NOTE | 2018-02-18 19:11 | Progress Notes ---
DATE: 02/18/2018 SUBJECTIVE: The patient was seen and examined. The patient is intubated and sedated. Blood pressure is very marginal. The patient is not responsive to verbal commands, but responds to painful stimuli. The patient's nurse is at the bedside. OBJECTIVE: VITAL SIGNS: Temperature 99, pulse 92, respiratory rate 18, blood pressure 84/34. HEENT: Oral endotracheal tube noted. NECK: Supple, no JVD. HEART: Regular. LUNGS: Has expiratory wheezing. ABDOMEN: Soft. EXTREMITIES: Edema of the upper and lower extremity noted. AVAILABLE DIAGNOSTIC DATA: The patient has a positive fluid balance of ____ mL. LABORATORY DATA: White count of 21.7, hemoglobin of 7.1, platelet count 167. PH of 7.12, pCO2 of 59, pO2 of 43, O2 sat is 60. Sodium 121, potassium 5.1, chloride 89, CO2 13.5, anion gap 23.5, BUN and creatinine is ____, calcium 5.5, AST and ALT are 41 and 53. Glucoscan is reviewed. CLINICAL IMPRESSION: Multiorgan failure with respiratory failure, renal failure, acute respiratory distress syndrome, septic shock, severe electrolyte imbalance, metabolic acidosis, and leukocytosis with significant anemia. PLAN: At this time, the patient's prognosis is extremely poor. The family to come and decide about to be taking off from withdrawal considering that the patient's condition is extremely poor. Discussed with RN as well as the caser up and assist the patient's for making decisions. JOB# [id number]
--- NOTE | 2018-03-03 07:25 | Discharge Summary ---
DATE OF DISCHARGE: 02/18/2018 SUMMARY IDENTIFICATION: A 72-year-old male. DATE OF : 02/18/2018 at 1520 hours. PRINCIPAL DIAGNOSES: 1. Cardiac arrest. 2. Acute respiratory failure, required endotracheal intubation and mechanical ventilation. 3. Acute kidney injury secondary to acute tubular necrosis. 4. Septic shock. 5. Anion gap metabolic acidosis. 6. Diabetes mellitus with elevated blood sugar. 7. Complicated urinary tract infection. 8. Aspiration pneumonia. 9. Psychotic disorder. 10. Elevated ammonia levels. 11. Hepatic encephalopathy. 12. DNR status. BRIEF STATEMENT FOR THE REASON FOR ADMISSION: A 72-year-old male initially admitted to Geropsych Unit for his psychotic illness. The patient was transferred to medical floor after the patient was noted to have hypotension associated with abnormal electrolyte and acute kidney injury. Please refer to my H and P for further information. HOSPITAL COURSE: The patient was admitted to ICU. The patient was seen by myself along with workers' compensation mediator, is project manager, Infectious Disease, and GI. The patient had aggressive treatment for his underlying acute condition with the help of eco industrial development consultant. The patient's condition continues to deteriorate, which required BiPAP and pressor agent followed by ventilator support after endotracheal intubation. The patient's was updated about the patient's condition, diagnosis, treatment plan. The patient's suggest wanted to keep the patient DNR status. The patient did have aggressive treatment with the help of eco industrial development consultant, but in spite of aggressive therapy, the patient continues to deteriorate. The patient required multiple pressure agents. Finally, the patient's family decided to withdraw the life support and the patient on 02/18/2018 at 1520 hours. JOB# [id number]
== END 2018-02-18 15:20 | disposition expired | DRG 871 ==
LOC: ICU 14:49
PROVIDERS: ADMIT Internal Medicine; ATTEND Internal Medicine
PROC: 5A1945Z Respiratory Ventilation, 24-96 Consecutive Hours (ICD-10-PCS; principal; 2018-02-14)
PROC: 5A09357 Assistance with Respiratory Ventilation, Less than 24 Consecutive Hours, Continuous Positive Airway Pressure (ICD-10-PCS; 2018-02-14)
PROC: 0BH17EZ Insertion of Endotracheal Airway into Trachea, Via Natural or Artificial Opening (ICD-10-PCS; 2018-02-14)
DX: A41.9 Sepsis, unspecified organism (principal); R65.21 Severe sepsis with septic shock; J96.00 Acute respiratory failure, unspecified whether with hypoxia or hypercapnia; G93.41 Metabolic encephalopathy; N17.0 Acute kidney failure with tubular necrosis; N39.0 Urinary tract infection, site not specified; K92.2 Gastrointestinal hemorrhage, unspecified; J44.0 Chronic obstructive pulmonary disease with (acute) lower respiratory infection; I47.1 Supraventricular tachycardia; Z99.11 Dependence on respirator [ventilator] status; E11.9 Type 2 diabetes mellitus without complications; E03.9 Hypothyroidism, unspecified; N40.0 Benign prostatic hyperplasia without lower urinary tract symptoms; I10 Essential (primary) hypertension; M19.90 Unspecified osteoarthritis, unspecified site; E87.8 Other disorders of electrolyte and fluid balance, not elsewhere classified; D50.9 Iron deficiency anemia, unspecified; G30.9 Alzheimer's disease, unspecified; I46.9 Cardiac arrest, cause unspecified; F02.80 Dementia in other diseases classified elsewhere, unspecified severity, without behavioral disturbance, psychotic disturbance, mood disturbance, and anxiety; Z66 Do not resuscitate; D63.8 Anemia in other chronic diseases classified elsewhere; E86.0 Dehydration; E87.5 Hyperkalemia; E66.9 Obesity, unspecified; F29 Unspecified psychosis not due to a substance or known physiological condition; Y95 Nosocomial condition; R62.7 Adult failure to thrive; Z88.8 Allergy status to other drugs, medicaments and biological substances; Z68.29 Body mass index [BMI] 29.0-29.9, adult; Z79.4 Long term (current) use of insulin
CPT/HCPCS: 36415-UA; 36600-90; 71045-TC; 76700-TC; 80053-TC; 80202-TC; 81001-TC; 82140-TC; 82150-TC; 82248-TC; 82803-TC; 82947-TC; 82948-90; 83605; 83690-TC; 83735-TC; 83880-TC; 84100-TC; 84439-90; 84443-TC; 84479-90; 84484-TC; 85007-TC; 85014-TC; 85018-TC; 85025-TC; 85610-TC; 85730-TC; 87070; 90799; 92950; 93005; 94002; 94003; 94660; 96379; 99201; C9113; J0171; J0330; J0456; J0461; J0610; J1265; J1815; J2060; J2185; J2270; J2370; J2543; J2920; J3370; J3475; J7042; P9045; P9046; X6452; Z7610